=== PATIENT | male | born 1955 | race Caucasian/White ===

== ENCOUNTER 2017-01-10 18:47 | Emergency (ER) | payer OTHER ==
[2017-01-10 19:32] LABS: BASOPHILS 0.5 % (0-2); EOSINOPHILS 4.4 % (0-7); HEMATOCRIT 47.2 % (42.0-54.0); HEMOGLOBIN 15.6 g/dL (13.5-17.5); IMMATURE GRANULOCYTES 0.2 % (0-5); LYMPHOCYTES 30.2 % (15-50); MCH 29.8 pg (26.0-34.0); MCHC 33.1 g/dL (31.0-37.0); MCV 90.2 fL (80.0-100.0); MEAN PLATELET VOLUME 10.3 fL (7.4-10.4); MONOCYTES 8.6 % (2-11); NEUTROPHILS 56.1 % (40-80); PLATELET COUNT 136 10x3/uL (130-400); RBC 5.23 10x6/uL (4.20-6.10); RDW 14.7 % (11.5-14.5); WBC 9.2 10x3/uL (4.8-10.8)
[2017-01-10 19:58] LABS: ALBUMIN 3.4 g/dL (3.4-5.0); ALKALINE PHOSPHATASE 80 U/L (46-116); ALT (SGPT) 41 U/L (10-68); BILIRUBIN - TOTAL 0.26 mg/dL (0.2-1.3); CALC OSMOLALITY 282 mosm/kg (275-300); CARBON DIOXIDE 28.6 mmol/L (21.0-32.0); CHLORIDE - SERUM 103 mmol/L (98-107); CREATININE - SERUM 1.4 mg/dL (0.6-1.3); SODIUM 139 mmol/L (136-145); UREA NITROGEN 18 mg/dL (7-18); eGFR NON AFRICAN AMERICAN 54 mL/min (90-120)
[2017-01-10 20:00] LABS: GLUCOSE 144 mg/dL (74-106)
[2017-01-10 20:07] LABS: AMYLASE - SERUM 72 U/L (25-115); LIPASE 265 U/L (73-393); PRO BNP 538 pg/mL (0-125)
[2017-01-10 20:17] LABS: TROPONIN-I < 0.017 ng/mL (0.000-0.060)
== END 2017-01-10 20:58 | disposition home or self-care (01) ==
LOC: D.ER 18:47
PROVIDERS: Emergency Medicine
DX: I10 Essential (primary) hypertension (principal); R42 Dizziness and giddiness; R51 Headache; Z86.73 Personal history of transient ischemic attack (TIA), and cerebral infarction without residual deficits; E11.9 Type 2 diabetes mellitus without complications

== ENCOUNTER 2017-07-08 08:02 | Emergency (ER) | payer OTHER ==
[2017-09-25 13:57] VITALS: BMI 29.6
== END 2017-07-08 10:17 | disposition home or self-care (01) ==
LOC: D.ER 08:02
DX: M54.5 Low back pain (principal)

== ENCOUNTER 2017-07-18 18:15 | Emergency (ER) | payer OTHER ==
[2017-07-18 19:00] LABS: BASOPHILS 0.7 % (0-2); EOSINOPHILS 4.4 % (0-7); HEMATOCRIT 47.1 % (42.0-54.0); HEMOGLOBIN 16.1 g/dL (13.5-17.5); IMMATURE GRANULOCYTES 0.3 % (0-5); LYMPHOCYTES 29.1 % (15-50); MCH 30.6 pg (26.0-34.0); MCHC 34.2 g/dL (31.0-37.0); MCV 89.4 fL (80.0-100.0); MEAN PLATELET VOLUME 10.6 fL (7.4-10.4); MONOCYTES 9.1 % (2-11); NEUTROPHILS 56.4 % (40-80); PLATELET COUNT 132 10x3/uL (130-400); RBC 5.27 10x6/uL (4.20-6.10); WBC 8.7 10x3/uL (4.8-10.8)
[2017-07-18 19:16] LABS: INR 0.97 (0.85-1.17); PROTIME 12.7 SECONDS (11.6-15.0)
[2017-07-18 19:47] LABS: APPEARANCE CLEAR (CLEAR); COLOR DK YELLOW (YELLOW); SPECIFIC GRAVITY 1.015 (1.005-1.020)
[2017-07-18 19:48] LABS: BILIRUBIN NEGATIVE (NEGATIVE); GLUCOSE 500 mg/dL (NEGATIVE); KETONE NEGATIVE (NEGATIVE); NITRITE NEGATIVE (NEGATIVE); PROTEIN NEGATIVE (NEGATIVE); UROBILINOGEN NORMAL (NORMAL)
[2017-07-18 19:53] LABS: UDS - AMPHET NEGATIVE QUAL (NEGATIVE); UDS - BARB NEGATIVE QUAL (NEGATIVE); UDS - BENZO POSITIVE QUAL (NEGATIVE); UDS - COCAINE NEGATIVE QUAL (NEGATIVE); UDS - OPIATE NEGATIVE QUAL (NEGATIVE); UDS - PCP NEGATIVE QUAL (NEGATIVE); UDS - THC NEGATIVE QUAL (NEGATIVE)
[2017-07-18 20:40] LABS: ALBUMIN 3.5 g/dL (3.4-5.0); ALKALINE PHOSPHATASE 69 U/L (46-116); ALT (SGPT) 28 U/L (10-68); BILIRUBIN - TOTAL 0.44 mg/dL (0.2-1.3); CALC OSMOLALITY 284 mosm/kg (275-300); CALCIUM 9.5 mg/dL (8.5-10.1); CARBON DIOXIDE 27.6 mmol/L (21.0-32.0); CHLORIDE - SERUM 100 mmol/L (98-107); CREATININE - SERUM 1.7 mg/dL (0.6-1.3); POTASSIUM - SERUM 4.4 mmol/L (3.5-5.1); PROTEIN - SERUM 8.3 g/dL (6.4-8.2); SODIUM 138 mmol/L (136-145); UREA NITROGEN 20 mg/dL (7-18); eGFR NON AFRICAN AMERICAN 43 mL/min (90-120)
[2017-07-18 20:43] LABS: GLUCOSE 204 mg/dL (74-106)
[2017-07-18 20:51] LABS: CHOL - HDL RATIO 11.1 ratio (2.3-4.9); CHOLESTEROL, TOTAL 234 mg/dL (0-200); CKMB 0.2 U/L (0.0-3.6); CREATINE KINASE 82 UL (21-232); HDL CHOLESTEROL 21 mg/dL (32-96); LDL CHOLESTEROL 153 mg/dL (0-100); LDL-HDL RATIO 7.3 ratio (1.5-3.5); TRIGLYCERIDE 301 mg/dL (30-200)
[2017-07-18 20:52] LABS: TROPONIN-I < 0.017 ng/mL (0.000-0.060)
[2017-09-25 13:57] VITALS: BMI 29.6
== END 2017-07-18 21:05 | disposition home or self-care (01) ==
LOC: D.ER 18:15
PROVIDERS: Emergency Medicine; Nurse Practitioner Family
DX: R07.9 Chest pain, unspecified (principal); F41.9 Anxiety disorder, unspecified; I10 Essential (primary) hypertension

== ENCOUNTER 2017-07-29 18:45 | Emergency (ER) | payer OTHER ==
[2017-07-29 19:33] LABS: BASOPHILS 0.6 % (0-2); EOSINOPHILS 2.9 % (0-7); HEMATOCRIT 46.7 % (42.0-54.0); HEMOGLOBIN 16.2 g/dL (13.5-17.5); IMMATURE GRANULOCYTES 0.1 % (0-5); LYMPHOCYTES 26.7 % (15-50); MCH 30.6 pg (26.0-34.0); MCHC 34.7 g/dL (31.0-37.0); MCV 88.3 fL (80.0-100.0); MEAN PLATELET VOLUME 10.4 fL (7.4-10.4); MONOCYTES 8.5 % (2-11); NEUTROPHILS 61.2 % (40-80); RBC 5.29 10x6/uL (4.20-6.10); RDW 13.8 % (11.5-14.5); WBC 8.8 10x3/uL (4.8-10.8)
[2017-07-29 19:42] LABS: PLATELET COUNT 160 10x3/uL (130-400)
[2017-07-29 19:50] LABS: ALBUMIN 3.6 g/dL (3.4-5.0); ALKALINE PHOSPHATASE 95 U/L (46-116); ALT (SGPT) 38 U/L (10-68); BILIRUBIN - TOTAL 0.32 mg/dL (0.2-1.3); CALC OSMOLALITY 279 mosm/kg (275-300); CALCIUM 9.1 mg/dL (8.5-10.1); CARBON DIOXIDE 24.8 mmol/L (21.0-32.0); CHLORIDE - SERUM 100 mmol/L (98-107); CREATININE - SERUM 1.7 mg/dL (0.6-1.3); GLUCOSE 194 mg/dL (74-106); POTASSIUM - SERUM 3.7 mmol/L (3.5-5.1); PROTEIN - SERUM 8.5 g/dL (6.4-8.2); SODIUM 137 mmol/L (136-145); UREA NITROGEN 16 mg/dL (7-18); eGFR NON AFRICAN AMERICAN 43 mL/min (90-120)
[2017-07-29 20:00] LABS: CHOL - HDL RATIO 9.6 ratio (2.3-4.9); CHOLESTEROL, TOTAL 202 mg/dL (0-200); CKMB 0.5 U/L (0.0-3.6); CREATINE KINASE 115 UL (21-232); HDL CHOLESTEROL 21 mg/dL (32-96); LDL CHOLESTEROL 113 mg/dL (0-100); LDL-HDL RATIO 5.4 ratio (1.5-3.5); TRIGLYCERIDE 344 mg/dL (30-200)
[2017-07-29 20:01] LABS: TROPONIN-I < 0.017 ng/mL (0.000-0.060)
[2017-09-25 13:57] VITALS: BMI 29.6
== END 2017-07-29 20:45 | disposition home or self-care (01) ==
LOC: D.ER 18:45
PROVIDERS: Family Medicine
DX: R07.89 Other chest pain (principal); Z86.73 Personal history of transient ischemic attack (TIA), and cerebral infarction without residual deficits; E11.9 Type 2 diabetes mellitus without complications

== ENCOUNTER 2017-09-24 15:03 | Observation (INO) | payer OTHER ==
[~2017-09-24] VITALS: Ht 172.7 cm; Wt 81.1 kg
[2017-09-24 16:15] LABS: BASOPHILS 0.6 % (0-2); EOSINOPHILS 0.6 % (0-7); HEMATOCRIT 48.7 % (42.0-54.0); HEMOGLOBIN 16.2 g/dL (13.5-17.5); IMMATURE GRANULOCYTES 0.4 % (0-5); LYMPHOCYTES 14.1 % (15-50); MCH 29.6 pg (26.0-34.0); MCHC 33.3 g/dL (31.0-37.0); MEAN PLATELET VOLUME 12.2 fL (7.4-10.4); MONOCYTES 6.7 % (2-11); NEUTROPHILS 77.6 % (40-80); PLATELET COUNT 114 10x3/uL (130-400); RBC 5.47 10x6/uL (4.20-6.10); RDW 14.1 % (11.5-14.5)
[2017-09-24 16:27] LABS: INR 1.01 (0.85-1.17); PROTIME 12.9 SECONDS (11.6-15.0)
[2017-09-24 16:41] LABS: ALKALINE PHOSPHATASE 122 U/L (46-116); ALT (SGPT) 48 U/L (10-68); BILIRUBIN - TOTAL 0.83 mg/dL (0.2-1.3); CALCIUM 9.7 mg/dL (8.5-10.1); CARBON DIOXIDE 24.3 mmol/L (21.0-32.0); CREATINE KINASE 135 UL (21-232); CREATININE - SERUM 2.4 mg/dL (0.6-1.3); POTASSIUM - SERUM 5.8 mmol/L (3.5-5.1); PRO BNP 208 pg/mL (0-125); PROTEIN - SERUM 7.9 g/dL (6.4-8.2); UREA NITROGEN 26 mg/dL (7-18); eGFR NON AFRICAN AMERICAN 29 mL/min (90-120)
[2017-09-24 16:56] LABS: CALC OSMOLALITY 293 mosm/kg (275-300); SODIUM 120 mmol/L (136-145)
[2017-09-24 16:58] LABS: CHLORIDE - SERUM 83 mmol/L (98-107); TROPONIN-I < 0.017 ng/mL (0.000-0.060)
[2017-09-24 17:19] LABS: KETONE - SERUM SMALL mg/dL (NEGATIVE)
[2017-09-24 17:20] LABS: APPEARANCE CLEAR (CLEAR); COLOR STRAW (YELLOW); GLUCOSE 1000 mg/dL (NEGATIVE); KETONE SMALL mg/dL (NEGATIVE); NITRITE NEGATIVE (NEGATIVE); PROTEIN NEGATIVE (NEGATIVE)
[2017-09-24 17:21] LABS: BILIRUBIN NEGATIVE (NEGATIVE); UROBILINOGEN NORMAL (NORMAL)
[2017-09-24 17:22] LABS: RED CELLS - URINE 0-5 /hpf (0-5)
[2017-09-24 17:23] LABS: WHITE CELLS - URINE 0-5 /hpf (0-5)
[2017-09-24 17:25] LABS: AMYLASE - SERUM 42 U/L (25-115); LIPASE 271 U/L (73-393); MAGNESIUM - SERUM 2.4 mg/dL (1.8-2.4)
[2017-09-24 20:03] LABS: ALBUMIN 3.8 g/dL (3.4-5.0); ANION GAP 18.9 mmol/L (8-16); CALCIUM 9.1 mg/dL (8.5-10.1); CARBON DIOXIDE 24.2 mmol/L (21.0-32.0); POTASSIUM - SERUM 5.1 mmol/L (3.5-5.1)
[2017-09-24 20:21] LABS: GLUCOSE 939 mg/dL (74-106)
[2017-09-24 20:24] LABS: PROTEIN - SERUM 7.5 g/dL (6.4-8.2)
[2017-09-24 20:37] LABS: BILIRUBIN - TOTAL 0.66 mg/dL (0.2-1.3)
[2017-09-25] MEDS ORDERED: CYCLOBENZAPRINE10 MG PO (04:07)
[2017-09-25] MEDS ORDERED: ULTRAM50 MG PO (04:07)
[2017-09-25] MEDS ORDERED: PLAVIX75 MG PO (04:13)
[2017-09-25] MEDS ORDERED: BAYER CHEWABLE81 MG PO (04:13)
[2017-09-25] MEDS ORDERED: METOPROLOL TAR100 M1 PO (04:13)
[2017-09-25] MEDS ORDERED: NORVASC5 MG PO (04:13)
[2017-09-25 04:26] VITALS: BP 173/89; BMI 29.7
[2017-09-25 07:20] LABS: BASOPHILS 0.5 % (0-2); EOSINOPHILS 3.5 % (0-7); HEMATOCRIT 42.9 % (42.0-54.0); HEMOGLOBIN 14.4 g/dL (13.5-17.5); IMMATURE GRANULOCYTES 0.2 % (0-5); LYMPHOCYTES 31.7 % (15-50); MCH 28.9 pg (26.0-34.0); MCHC 33.6 g/dL (31.0-37.0); MEAN PLATELET VOLUME 11.5 fL (7.4-10.4); NEUTROPHILS 56.1 % (40-80); PLATELET COUNT 102 10x3/uL (130-400); RBC 4.98 10x6/uL (4.20-6.10); RDW 13.7 % (11.5-14.5); WBC 6.5 10x3/uL (4.8-10.8)
[2017-09-25 07:31] LABS: MCV 86.1 fL (80.0-100.0)
[2017-09-25 07:43] LABS: ALBUMIN 3.1 g/dL (3.4-5.0); BILIRUBIN - TOTAL 0.49 mg/dL (0.2-1.3); CALCIUM 8.5 mg/dL (8.5-10.1); CARBON DIOXIDE 27.7 mmol/L (21.0-32.0); CREATININE - SERUM 1.5 mg/dL (0.6-1.3); PROTEIN - SERUM 6.3 g/dL (6.4-8.2)
[2017-09-25 07:44] LABS: POTASSIUM - SERUM 3.7 mmol/L (3.5-5.1)
[2017-09-25 08:06] VITALS: BP 167/74
[2017-09-25 12:24] VITALS: BP 170/86
[2017-09-25 13:57] VITALS: Ht 172.7 cm; Wt 81.1 kg
[2017-09-25 14:01] LABS: HEMOGLOBIN A1C 11.6 % (4.8-6.0)
[2017-09-25 17:28] VITALS: BP 159/81
[2017-09-25 21:16] VITALS: BP 142/77
[2017-09-26 01:23] VITALS: BP 132/61
[2017-09-26 05:24] LABS: BASOPHILS 0.5 % (0-2); EOSINOPHILS 2.8 % (0-7); HEMATOCRIT 39.3 % (42.0-54.0); HEMOGLOBIN 13.8 g/dL (13.5-17.5); LYMPHOCYTES 30.6 % (15-50); MCH 30.5 pg (26.0-34.0); MCHC 35.1 g/dL (31.0-37.0); MCV 86.8 fL (80.0-100.0); MEAN PLATELET VOLUME 11.7 fL (7.4-10.4); MONOCYTES 9.4 % (2-11); NEUTROPHILS 56.7 % (40-80); PLATELET COUNT 102 10x3/uL (130-400); RBC 4.53 10x6/uL (4.20-6.10); RDW 13.8 % (11.5-14.5); WBC 6.4 10x3/uL (4.8-10.8)
[2017-09-26 05:53] LABS: ALBUMIN 2.8 g/dL (3.4-5.0); ANION GAP 11.2 mmol/L (8-16); BILIRUBIN - TOTAL 0.4 mg/dL (0.2-1.3); CALCIUM 8.2 mg/dL (8.5-10.1); CARBON DIOXIDE 27.2 mmol/L (21.0-32.0); CREATININE - SERUM 1.2 mg/dL (0.6-1.3); POTASSIUM - SERUM 3.4 mmol/L (3.5-5.1); PROTEIN - SERUM 6.1 g/dL (6.4-8.2)
[2017-09-26 05:58] VITALS: BP 147/65
[2017-09-26 08:10] VITALS: BP 159/83
[2017-09-26 11:45] VITALS: BP 131/61
== END 2017-09-26 15:58 | disposition home or self-care (01) ==
LOC: D.ER 15:03 → D.M2 09-25 03:02 → OBSVTIME 09-25 03:02 → D.M2 09-26 15:58
PROVIDERS: Emergency Medicine; Family Medicine; Nurse Practitioner Family
DX: E11.65 Type 2 diabetes mellitus with hyperglycemia (principal); I10 Essential (primary) hypertension; I25.10 Atherosclerotic heart disease of native coronary artery without angina pectoris; Z95.5 Presence of coronary angioplasty implant and graft; Z95.1 Presence of aortocoronary bypass graft; Z87.891 Personal history of nicotine dependence; K21.9 Gastro-esophageal reflux disease without esophagitis; Z85.46 Personal history of malignant neoplasm of prostate; E87.1 Hypo-osmolality and hyponatremia; N17.9 Acute kidney failure, unspecified

== ENCOUNTER 2017-12-02 18:56 | Emergency (ER) | payer OTHER ==
[2017-09-25 13:57] VITALS: BMI 29.6
[~2017-12-02 18:56] MED LIST: BAYER CHEWABLE81 MG PO; CYCLOBENZAPRINE10 MG PO; METOPROLOL TAR100 M1 PO; NORVASC5 MG PO; PLAVIX75 MG PO; ULTRAM50 MG PO
[2017-12-02 19:37] LABS: BASOPHILS 0.4 % (0-2); EOSINOPHILS 3.9 % (0-7); HEMATOCRIT 46.1 % (42.0-54.0); HEMOGLOBIN 15.3 g/dL (13.5-17.5); IMMATURE GRANULOCYTES 0.1 % (0-5); LYMPHOCYTES 29.2 % (15-50); MCH 29.5 pg (26.0-34.0); MCHC 33.2 g/dL (31.0-37.0); MEAN PLATELET VOLUME 10.2 fL (7.4-10.4); MONOCYTES 6.7 % (2-11); NEUTROPHILS 59.7 % (40-80); PLATELET COUNT 166 10x3/uL (130-400); RBC 5.18 10x6/uL (4.20-6.10); RDW 14.5 % (11.5-14.5); WBC 7.1 10x3/uL (4.8-10.8)
[2017-12-02 19:48] LABS: APTT 26.5 SECONDS (22.8-39.4); INR 0.99 (0.85-1.17); PROTIME 12.7 SECONDS (11.6-15.0)
[2017-12-02 19:56] LABS: ALBUMIN 3.6 g/dL (3.4-5.0); ALKALINE PHOSPHATASE 82 U/L (46-116); ALT (SGPT) 28 U/L (10-68); CALC OSMOLALITY 283 mosm/kg (275-300); CALCIUM 9.4 mg/dL (8.5-10.1); CHLORIDE - SERUM 102 mmol/L (98-107); CREATININE - SERUM 1.7 mg/dL (0.6-1.3); POTASSIUM - SERUM 4.2 mmol/L (3.5-5.1); PROTEIN - SERUM 8.5 g/dL (6.4-8.2); SODIUM 137 mmol/L (136-145); UREA NITROGEN 18 mg/dL (7-18); eGFR NON AFRICAN AMERICAN 43 mL/min (90-120)
[2017-12-02 19:59] LABS: GLUCOSE 251 mg/dL (74-106)
[2017-12-02 20:05] LABS: CREATINE KINASE 199 UL (21-232); PRO BNP 261 pg/mL (0-125); TROPONIN-I < 0.017 ng/mL (0.000-0.060)
== END 2017-12-02 22:30 | disposition left against medical advice (07) ==
LOC: D.ER 18:56
PROVIDERS: Family Medicine
DX: R07.9 Chest pain, unspecified (principal); E11.9 Type 2 diabetes mellitus without complications; Z79.4 Long term (current) use of insulin; R53.1 Weakness; I12.9 Hypertensive chronic kidney disease with stage 1 through stage 4 chronic kidney disease, or unspecified chronic kidney disease; N18.9 Chronic kidney disease, unspecified; F17.200 Nicotine dependence, unspecified, uncomplicated

== ENCOUNTER 2017-12-26 19:24 | Emergency (ER) | payer MEDICARE, OTHER ==
[2017-09-25 13:57] VITALS: BMI 29.6
[2017-12-26 19:59] LABS: BASOPHILS 0.7 % (0-2); EOSINOPHILS 3.1 % (0-7); HEMATOCRIT 46.3 % (42.0-54.0); HEMOGLOBIN 15.7 g/dL (13.5-17.5); IMMATURE GRANULOCYTES 0.1 % (0-5); LYMPHOCYTES 27.5 % (15-50); MCH 29.6 pg (26.0-34.0); MCHC 33.9 g/dL (31.0-37.0); MCV 87.4 fL (80.0-100.0); MEAN PLATELET VOLUME 10.6 fL (7.4-10.4); MONOCYTES 7.7 % (2-11); NEUTROPHILS 60.9 % (40-80); PLATELET COUNT 151 10x3/uL (130-400); RDW 14.1 % (11.5-14.5); WBC 8.7 10x3/uL (4.8-10.8)
[2017-12-26 20:30] LABS: ALBUMIN 3.5 g/dL (3.4-5.0); ALKALINE PHOSPHATASE 82 U/L (46-116); ALT (SGPT) 26 U/L (10-68); BILIRUBIN - TOTAL 0.29 mg/dL (0.2-1.3); CALC OSMOLALITY 287 mosm/kg (275-300); CALCIUM 9.5 mg/dL (8.5-10.1); CHLORIDE - SERUM 102 mmol/L (98-107); CREATINE KINASE 93 UL (21-232); CREATININE - SERUM 1.5 mg/dL (0.6-1.3); GLUCOSE 238 mg/dL (74-106); HDL CHOLESTEROL 23 mg/dL (32-96); POTASSIUM - SERUM 3.8 mmol/L (3.5-5.1); PROTEIN - SERUM 8.7 g/dL (6.4-8.2); SODIUM 140 mmol/L (136-145); TRIGLYCERIDE 192 mg/dL (30-200); UREA NITROGEN 15 mg/dL (7-18); eGFR NON AFRICAN AMERICAN 50 mL/min (90-120)
[2017-12-26 20:53] LABS: CHOL - HDL RATIO 8.4 ratio (2.3-4.9); CHOLESTEROL, TOTAL 192 mg/dL (0-200); CKMB 0.3 U/L (0.0-3.6); LDL CHOLESTEROL 131 mg/dL (0-100); LDL-HDL RATIO 5.7 ratio (1.5-3.5); TROPONIN-I 0.026 ng/mL (0.000-0.060)
[2017-12-26 23:32] LABS: CKMB 0.3 U/L (0.0-3.6); CREATINE KINASE 82 UL (21-232); TROPONIN-I 0.031 ng/mL (0.000-0.060)
== END 2017-12-27 00:18 | disposition left against medical advice (07) ==
LOC: OBSVTIME → D.ER 19:24 → D.EDHOLD 21:50 → D.ER 21:50 → OBSVTIME 21:50 → D.ER 12-27 00:18
PROVIDERS: Family Medicine
DX: R07.9 Chest pain, unspecified (principal); I10 Essential (primary) hypertension; I12.9 Hypertensive chronic kidney disease with stage 1 through stage 4 chronic kidney disease, or unspecified chronic kidney disease; N18.9 Chronic kidney disease, unspecified; E11.9 Type 2 diabetes mellitus without complications; Z79.4 Long term (current) use of insulin

== ENCOUNTER 2018-01-12 16:34 | Observation (INO) | payer OTHER ==
[~2018-01-12] VITALS: Ht 172.7 cm; Wt 75.1 kg
--- NOTE | ~2018-01-12 | CN ---
PATIENT NAME:CAROLINA MILLS MEDICAL RECORD: [id number] : 51 LOCATION:D. D.2117 ADMIT DATE: 01/12/18 ACCOUNT: [id number] CONSULTING PHYSICIAN: BRUCE MILLS MD REFERRING PHYSICIAN: JORDAN HURLEY MD DATE OF CONSULTATION: 01/13/2018 HISTORY OF PRESENT ILLNESS: A 62-year-old gentleman with history of coronary artery disease, status post CABG, status post intervention last , just balloon. Has a history of hypertension and diabetes. Admitted with chest pain. Acute renal injury probably secondary to dehydration. Enzymes are negative at this point. Creatinine is improving. Pain free. We are asked to see him concerning his cardiovascular status. PAST MEDICAL HISTORY: 1. History of hypertension. 2. Hyperlipidemia. 3. Diabetes mellitus. 4. Ongoing tobacco use. 5. Mild chronic renal insufficiency. MEDICATIONS: Include Glucophage 500 b.i.d., insulin per scale, aspirin 81 every day, amlodipine 5 every day, metoprolol 100 b.i.d., Plavix 75 every day, Flexeril 10 t.i.d. p.r.n. ALLERGIES: MORPHINE AND CODEINE. SOCIAL HISTORY: . Does smoke. Stays quite active. Easily takes care of all of his ADLs. REVIEW OF SYSTEMS: The patient reports easy bruising but reports no swollen glands. The patient reports no fever, no night sweats, no significant weight gain, no significant weight loss. No significant exercise tolerance. The patient reports no dry eyes, no irritation, no vision change. Patient reports no difficulty hearing and no ear pain. Patient reports no frequent nose bleeds or nose and sinus problems. Patient reports on arm pain on exertion. No shortness of breath while lying down. No history of heart murmur. Patient reports no cough, no wheezing or coughing up blood. Patient reports no abdominal pain, no vomiting. Normal appetite. No diarrhea and not vomiting blood. No nausea and no constipation. Patient reports no incontinence. No difficulty urinating. No hematuria. No increased frequency. Patient reports no muscle aches. No weakness, no arthralgias, no back pain. No swelling of the extremities. Patient reports no abnormal mole, no jaundice, no rashes. Reports no loss of consciousness. No weakness and no numbness. No seizures, dizziness, or headaches. The patient reports no depression, no sleep disturbance, feeling safe in a relationship and no alcohol abuse. Patient reports on fatigue. Reports no runny nose or sinus pressure. No itching, no hives, and no frequent sneezing. PHYSICAL EXAMINATION: GENERAL: Pleasant gentleman, in no acute distress. VITAL SIGNS: Blood pressure 148/70, pulse 93 and regular. HEENT: Normocephalic, atraumatic. NECK: No JVD or bruit. HEART: Regular. A II/ systolic ejection murmur, occasional extrasystole. CONSULT REPORT [id number] LINACAROLINA RAY LUNGS: Good air excursion. ABDOMEN: Soft, nontender. EXTREMITIES: Pulses 2+. No edema. DIAGNOSTIC DATA: ECG without acute change. IMPRESSION: Doubt acute closure given no ST changes and negative enzymes. Maybe still has small vessel disease given underlying diabetic, etc. Continue anti-anginals. No contraindication to discharge from my standpoint. TRANSINT:[id number] Voice Confirmation ID: [id number] DOCUMENT ID: [id number] BRUCE MILLS MD at 0804 CC: [id number] DICTATION DATE: 01/13/18 0850 AUTOMATIC LUMP MAKING MACHINE TENDER: 01/13/18 1058 DIS IN 01/13/18 [id number] [place] [address]
[2018-01-12 17:24] LABS: BASOPHILS 0.8 % (0-2); EOSINOPHILS 6.8 % (0-7); HEMATOCRIT 39.5 % (42.0-54.0); HEMOGLOBIN 13.5 g/dL (13.5-17.5); IMMATURE GRANULOCYTES 0.2 % (0-5); LYMPHOCYTES 19.6 % (15-50); MCH 29.2 pg (26.0-34.0); MCHC 34.2 g/dL (31.0-37.0); MCV 85.3 fL (80.0-100.0); MEAN PLATELET VOLUME 10.2 fL (7.4-10.4); MONOCYTES 6.8 % (2-11); NEUTROPHILS 65.8 % (40-80); RBC 4.63 10x6/uL (4.20-6.10); RDW 14.1 % (11.5-14.5); WBC 9.6 10x3/uL (4.8-10.8)
[2018-01-12 17:45] LABS: PLATELET COUNT 199 10x3/uL (130-400)
[2018-01-12 18:28] LABS: APTT 28.2 SECONDS (22.8-39.4); INR 1.07 (0.85-1.17); PROTIME 13.5 SECONDS (11.6-15.0)
[2018-01-12 18:29] LABS: D-DIMER-QUANTITATIVE 1.68 ug/mLFEU (0.20-0.54)
[2018-01-12 18:33] LABS: ALBUMIN 3.1 g/dL (3.4-5.0); ALKALINE PHOSPHATASE 88 U/L (46-116); ALT (SGPT) 23 U/L (10-68); CALC OSMOLALITY 279 mosm/kg (275-300); CARBON DIOXIDE 29.9 mmol/L (21.0-32.0); CHLORIDE - SERUM 95 mmol/L (98-107); CREATININE - SERUM 2.1 mg/dL (0.6-1.3); POTASSIUM - SERUM 3.8 mmol/L (3.5-5.1); SODIUM 138 mmol/L (136-145); UREA NITROGEN 26 mg/dL (7-18); eGFR NON AFRICAN AMERICAN 34 mL/min (90-120)
[2018-01-12 18:47] LABS: CHOL - HDL RATIO 5.3 ratio (2.3-4.9); CHOLESTEROL, TOTAL 116 mg/dL (0-200); CKMB 0.5 U/L (0.0-3.6); CREATINE KINASE 97 UL (21-232); HDL CHOLESTEROL 22 mg/dL (32-96); LDL CHOLESTEROL 68 mg/dL (0-100); LDL-HDL RATIO 3.1 ratio (1.5-3.5); PRO BNP 749 pg/mL (0-125); TRIGLYCERIDE 130 mg/dL (30-200); TROPONIN-I < 0.017 ng/mL (0.000-0.060)
[2018-01-12 18:48] LABS: GLUCOSE 80 mg/dL (74-106)
[2018-01-12 19:00] VITALS: BP 179/81
[2018-01-12 23:32] VITALS: BP 179/81; Ht 172.7 cm; Wt 75.1 kg
[2018-01-13 04:00] VITALS: BP 148/70
[2018-01-13 06:01] LABS: ANION GAP 14.4 mmol/L (8-16); CARBON DIOXIDE 25.3 mmol/L (21.0-32.0); CREATININE - SERUM 1.8 mg/dL (0.6-1.3); POTASSIUM - SERUM 3.7 mmol/L (3.5-5.1)
[2018-01-13] MEDS ORDERED: GLUCOPHAGE500 MG PO (06:17)
[2018-01-13] MEDS ORDERED: HUMULIN R100 U/ML SC (06:18)
[2018-01-13] MEDS ORDERED: LEVEMIR100 U/M1 SC (06:19)
[2018-01-13 08:44] VITALS: BP 175/92
== END 2018-01-13 09:15 | disposition left against medical advice (07) ==
LOC: D.ER 16:34 → D.M2 20:22 → D.EDHOLD 20:22 → OBSVTIME 20:22 → D.M2 21:15
PROVIDERS: Emergency Medicine; Family Medicine
DX: I25.10 Atherosclerotic heart disease of native coronary artery without angina pectoris (principal); Z95.1 Presence of aortocoronary bypass graft; Z72.0 Tobacco use; N17.9 Acute kidney failure, unspecified; E86.0 Dehydration; E78.5 Hyperlipidemia, unspecified; E11.9 Type 2 diabetes mellitus without complications

== ENCOUNTER 2018-05-30 18:48 | Emergency (ER) | payer OTHER ==
[~2018-05-30] VITALS: Ht 172.7 cm; Wt 82.3 kg
[~2018-05-30 18:48] MED LIST changes: +GLUCOPHAGE500 MG PO; +HUMULIN R100 U/ML SC; +LEVEMIR100 U/M1 SC
[2018-05-30 18:54] VITALS: Ht 172.7 cm; Wt 82.3 kg
[2018-05-30] MEDS ORDERED: ZYBAN150 MG PO (18:59)
[2018-05-30] MEDS ORDERED: LIPITOR80 MG PO (18:59)
[2018-05-30] MEDS ORDERED: COREG25 MG PO (19:00)
[2018-05-30] MEDS ORDERED: LANTUS INSULIN SC (19:02)
[2018-05-30] MEDS ORDERED: ISOSORBIDE MONO30 M1 PO (19:03)
[2018-05-30] MEDS ORDERED: PROTONIX40 MG PO (19:04)
[2018-05-30] MEDS ORDERED: COMMIT4 MG PO (19:06)
[2018-05-30 19:58] LABS: BASOPHILS 0.7 % (0-2); EOSINOPHILS 3.7 % (0-7); HEMATOCRIT 45.8 % (42.0-54.0); HEMOGLOBIN 15.4 g/dL (13.5-17.5); IMMATURE GRANULOCYTES 0.2 % (0-5); MCH 28.9 pg (26.0-34.0); MCHC 33.6 g/dL (31.0-37.0); MCV 86.1 fL (80.0-100.0); MEAN PLATELET VOLUME 10.4 fL (7.4-10.4); MONOCYTES 7.5 % (2-11); NEUTROPHILS 70.9 % (40-80); RBC 5.32 10x6/uL (4.20-6.10); RDW 14.6 % (11.5-14.5); WBC 9.4 10x3/uL (4.8-10.8)
[2018-05-30 20:05] LABS: PLATELET COUNT 120 10x3/uL (130-400)
[2018-05-30 20:09] LABS: ALBUMIN 3.4 g/dL (3.4-5.0); ALKALINE PHOSPHATASE 70 U/L (46-116); ALT (SGPT) 27 U/L (10-68); BILIRUBIN - TOTAL 0.39 mg/dL (0.2-1.3); CALC OSMOLALITY 281 mosm/kg (275-300); CALCIUM 8.7 mg/dL (8.5-10.1); CARBON DIOXIDE 26.1 mmol/L (21.0-32.0); CHLORIDE - SERUM 104 mmol/L (98-107); GLUCOSE 98 mg/dL (74-106); POTASSIUM - SERUM 4.4 mmol/L (3.5-5.1); PROTEIN - SERUM 8.2 g/dL (6.4-8.2); SODIUM 140 mmol/L (136-145); UREA NITROGEN 21 mg/dL (7-18); eGFR NON AFRICAN AMERICAN 36 mL/min (90-120)
[2018-05-30 20:21] LABS: AMYLASE - SERUM 73 U/L (25-115); CKMB 0.9 U/L (0.0-3.6); CREATINE KINASE 73 UL (21-232); LIPASE 354 U/L (73-393); PRO BNP 1049 pg/mL (0-125)
[2018-05-30 20:34] LABS: TROPONIN-I < 0.017 ng/mL (0.000-0.060)
[2018-05-30 22:23] LABS: APPEARANCE CLEAR (CLEAR); BILIRUBIN NEGATIVE (NEGATIVE); COLOR YELLOW (YELLOW); GLUCOSE NEGATIVE (NEGATIVE); KETONE NEGATIVE (NEGATIVE); NITRITE NEGATIVE (NEGATIVE); PROTEIN 1+ mg/dL (NEGATIVE); SPECIFIC GRAVITY 1.015 (1.005-1.020); UROBILINOGEN NORMAL (NORMAL)
[2018-05-31 00:32] VITALS: BP 166/105
== END 2018-05-31 00:34 | disposition other institution (70) ==
LOC: D.ER 18:48
PROVIDERS: Family Medicine
DX: R07.9 Chest pain, unspecified (principal); I10 Essential (primary) hypertension; R55 Syncope and collapse; R10.9 Unspecified abdominal pain; E11.9 Type 2 diabetes mellitus without complications; K21.9 Gastro-esophageal reflux disease without esophagitis; N42.9 Disorder of prostate, unspecified; F17.200 Nicotine dependence, unspecified, uncomplicated

== ENCOUNTER 2018-07-25 15:44 | Emergency (ER) | payer OTHER, MEDICARE ==
[2018-05-30 18:54] VITALS: BMI 27.5
[~2018-07-25 15:44] MED LIST changes: +COMMIT4 MG PO; +COREG25 MG PO; +ISOSORBIDE MONO30 M1 PO; +LANTUS INSULIN SC; +LIPITOR80 MG PO; +PROTONIX40 MG PO; +ZYBAN150 MG PO
[2018-08-17] MEDS ORDERED: ULTRAM50 MG PO (14:57)
[2018-08-17] MEDS ORDERED: NEURONTIN 300300 MG PO (14:57)
== END 2018-07-25 16:01 | disposition home or self-care (01) ==
LOC: D.ER 15:44
DX: R68.89 Other general symptoms and signs (principal)

== ENCOUNTER 2018-08-08 15:11 | Emergency (ER) | payer OTHER, MEDICARE ==
[~2018-08-08] VITALS: Ht 172.7 cm; Wt 84.5 kg
[2018-08-08 15:15] VITALS: Ht 172.7 cm; Wt 84.5 kg
[2018-08-08] MEDS ORDERED: PROCARDIA10 MG PO (15:17)
[2018-08-08] MEDS ORDERED: CLARITIN 10 MG10 MG PO (15:17)
[2018-08-08 16:51] LABS: BASOPHILS 0.5 % (0-2); EOSINOPHILS 2.4 % (0-7); HEMATOCRIT 44.3 % (42.0-54.0); HEMOGLOBIN 14.8 g/dL (13.5-17.5); IMMATURE GRANULOCYTES 0.2 % (0-5); LYMPHOCYTES 14.4 % (15-50); MCH 28.4 pg (26.0-34.0); MCHC 33.4 g/dL (31.0-37.0); MCV 84.9 fL (80.0-100.0); MEAN PLATELET VOLUME 10.6 fL (7.4-10.4); MONOCYTES 6.9 % (2-11); NEUTROPHILS 75.6 % (40-80); PLATELET COUNT 136 10x3/uL (130-400); RBC 5.22 10x6/uL (4.20-6.10); RDW 15.2 % (11.5-14.5); WBC 9.2 10x3/uL (4.8-10.8)
[2018-08-08 17:07] LABS: ALBUMIN 3.1 g/dL (3.4-5.0); ALKALINE PHOSPHATASE 77 U/L (46-116); ALT (SGPT) 22 U/L (10-68); BILIRUBIN - TOTAL 0.31 mg/dL (0.2-1.3); CALC OSMOLALITY 275 mosm/kg (275-300); CALCIUM 8.4 mg/dL (8.5-10.1); CARBON DIOXIDE 26.1 mmol/L (21.0-32.0); CHLORIDE - SERUM 102 mmol/L (98-107); CREATININE - SERUM 1.6 mg/dL (0.6-1.3); POTASSIUM - SERUM 3.7 mmol/L (3.5-5.1); PROTEIN - SERUM 7.8 g/dL (6.4-8.2); SODIUM 136 mmol/L (136-145); UREA NITROGEN 16 mg/dL (7-18); eGFR NON AFRICAN AMERICAN 46 mL/min (90-120)
[2018-08-08 17:11] LABS: GLUCOSE 156 mg/dL (74-106)
[2018-08-08 17:21] LABS: AMYLASE - SERUM 63 U/L (25-115); CKMB 0.9 U/L (0.0-3.6); CREATINE KINASE 69 UL (21-232); LIPASE 231 U/L (73-393); MAGNESIUM - SERUM 1.7 mg/dL (1.8-2.4); TROPONIN-I 0.043 ng/mL (0.000-0.060)
[2018-08-08 18:20] VITALS: BP 166/89
== END 2018-08-08 18:20 | disposition left against medical advice (07) ==
LOC: D.ER 15:11
PROVIDERS: Family Medicine
DX: R07.9 Chest pain, unspecified (principal); I10 Essential (primary) hypertension; N28.9 Disorder of kidney and ureter, unspecified; Z86.73 Personal history of transient ischemic attack (TIA), and cerebral infarction without residual deficits; E11.9 Type 2 diabetes mellitus without complications; F17.200 Nicotine dependence, unspecified, uncomplicated

== ENCOUNTER 2018-08-15 03:21 | Emergency (ER) | payer OTHER ==
[~2018-08-15] VITALS: Ht 172.7 cm; Wt 88.6 kg
[~2018-08-15 03:21] MED LIST changes: +CLARITIN 10 MG10 MG PO; +PROCARDIA10 MG PO
[2018-08-15 03:24] VITALS: Ht 172.7 cm; Wt 88.6 kg
[2018-08-15 03:46] LABS: BASOPHILS 0.5 % (0-2); HEMATOCRIT 44.7 % (42.0-54.0); HEMOGLOBIN 15.4 g/dL (13.5-17.5); IMMATURE GRANULOCYTES 0.3 % (0-5); LYMPHOCYTES 16.2 % (15-50); MCH 29.2 pg (26.0-34.0); MCHC 34.5 g/dL (31.0-37.0); MCV 84.7 fL (80.0-100.0); MONOCYTES 6.7 % (2-11); NEUTROPHILS 74.3 % (40-80); PLATELET COUNT 155 10x3/uL (130-400); RBC 5.28 10x6/uL (4.20-6.10); RDW 15.4 % (11.5-14.5); WBC 11.4 10x3/uL (4.8-10.8)
[2018-08-15 04:01] LABS: ALBUMIN 3.5 g/dL (3.4-5.0); ALKALINE PHOSPHATASE 78 U/L (46-116); ALT (SGPT) 28 U/L (10-68); BILIRUBIN - TOTAL 0.47 mg/dL (0.2-1.3); CALC OSMOLALITY 275 mosm/kg (275-300); CALCIUM 9.3 mg/dL (8.5-10.1); CARBON DIOXIDE 27.5 mmol/L (21.0-32.0); CHLORIDE - SERUM 99 mmol/L (98-107); CREATININE - SERUM 1.7 mg/dL (0.6-1.3); GLUCOSE 148 mg/dL (74-106); PROTEIN - SERUM 8.2 g/dL (6.4-8.2); SODIUM 135 mmol/L (136-145); UREA NITROGEN 21 mg/dL (7-18); eGFR NON AFRICAN AMERICAN 43 mL/min (90-120)
[2018-08-15 04:21] LABS: CREATINE KINASE 632 UL (21-232); MAGNESIUM - SERUM 1.8 mg/dL (1.8-2.4); PRO BNP 2283 pg/mL (0-125)
[2018-08-15 04:22] LABS: TROPONIN-I 8.502 ng/mL (0.000-0.060)
[2018-08-15 04:23] LABS: CKMB 49.7 U/L (0.0-3.6)
[2018-08-15 08:05] VITALS: BP 172/100
[2018-08-17] MEDS ORDERED: ULTRAM50 MG PO (14:57)
[2018-08-17] MEDS ORDERED: NEURONTIN 300300 MG PO (14:57)
== END 2018-08-15 08:05 | disposition short-term general hospital (02) ==
LOC: D.ER 03:21
PROVIDERS: Family Medicine
DX: R07.9 Chest pain, unspecified (principal); I25.10 Atherosclerotic heart disease of native coronary artery without angina pectoris; R74.8 Abnormal levels of other serum enzymes; I21.4 Non-ST elevation (NSTEMI) myocardial infarction; E11.9 Type 2 diabetes mellitus without complications; Z85.46 Personal history of malignant neoplasm of prostate; F17.200 Nicotine dependence, unspecified, uncomplicated

== ENCOUNTER → 2018-08-17 | Emergency (ER) | payer OTHER ==
[~2018-08-17] VITALS: Ht 172.7 cm; Wt 84.5 kg
[~2018-08-17] MED LIST changes: +NEURONTIN 300300 MG PO
[2018-08-17 13:46] VITALS: Ht 172.7 cm; Wt 84.5 kg
[2018-08-17 16:05] VITALS: BP 138/73
== END | disposition home or self-care (01) ==
LOC: D.ER 13:15
DX: M54.2 Cervicalgia (principal); E11.9 Type 2 diabetes mellitus without complications; N42.9 Disorder of prostate, unspecified; F17.200 Nicotine dependence, unspecified, uncomplicated

== ENCOUNTER 2018-09-27 23:55 | Observation (INO) | payer MEDICARE ==
[~2018-09-27] VITALS: Ht 172.7 cm; Wt 84.1 kg
[2018-09-28 00:08] VITALS: Ht 172.7 cm; Wt 84.1 kg
--- NOTE | 2018-09-28 00:56 | NUR ---
NOTIFIED JARED THAT PT STATED NITRO DID NOT HELP AND HE DID NOT WANT ANY MORE HE NEEDED DEMEROL.
[2018-09-28 01:02] LABS: BASOPHILS 0.6 % (0-2); EOSINOPHILS 2.5 % (0-7); HEMATOCRIT 42.4 % (42.0-54.0); HEMOGLOBIN 14.2 g/dL (13.5-17.5); IMMATURE GRANULOCYTES 0.3 % (0-5); MCH 28.4 pg (26.0-34.0); MCHC 33.5 g/dL (31.0-37.0); MCV 84.8 fL (80.0-100.0); MEAN PLATELET VOLUME 11.2 fL (7.4-10.4); MONOCYTES 6.8 % (2-11); NEUTROPHILS 74.8 % (40-80); PLATELET COUNT 132 10x3/uL (130-400); RDW 15.4 % (11.5-14.5); WBC 10.6 10x3/uL (4.8-10.8)
[2018-09-28 01:28] LABS: ALBUMIN 3.1 g/dL (3.4-5.0); ALKALINE PHOSPHATASE 68 U/L (46-116); ALT (SGPT) 21 U/L (10-68); BILIRUBIN - TOTAL 0.47 mg/dL (0.2-1.3); CALC OSMOLALITY 281 mosm/kg (275-300); CALCIUM 8.6 mg/dL (8.5-10.1); CARBON DIOXIDE 26.3 mmol/L (21.0-32.0); CHLORIDE - SERUM 104 mmol/L (98-107); CREATININE - SERUM 1.9 mg/dL (0.6-1.3); GLUCOSE 104 mg/dL (74-106); PROTEIN - SERUM 7.6 g/dL (6.4-8.2); SODIUM 140 mmol/L (136-145); UREA NITROGEN 22 mg/dL (7-18); eGFR NON AFRICAN AMERICAN 38 mL/min (90-120)
[2018-09-28 01:48] LABS: CKMB 0.8 U/L (0.0-3.6); CREATINE KINASE 76 UL (21-232)
[2018-09-28 01:49] LABS: TROPONIN-I 0.154 ng/mL (0.000-0.060)
--- NOTE | 2018-09-28 03:29 | NUR ---
PT RETURNED FROM SCAN AT THIS TIME
[2018-09-28 03:43] VITALS: BP 157/80
[2018-09-28 03:58] VITALS: BP 157/85
--- NOTE | 2018-09-28 04:08 | NUR ---
NO CHANGES NOTED. WILL MONITOR
[2018-09-28 04:51] VITALS: BP 150/78
--- NOTE | 2018-09-28 05:02 | NUR ---
PT REQUESTING TO SIGN OUT AMA AT THIS TIME. DR NEWBY ADVISED AND IS AT BEDSIDE AT THIS TIME
--- NOTE | 2018-09-28 05:08 | NUR ---
PT SIGNED AMA AT THIS TIME. IV D/C AT THIS TIME. AREA WNL. SIMPLE DRESSING. ADVISED TO STAY FOR TREATMENT. PT REFUSED. ADVISED ON LAB RESULTS AND MEANING. PT STATES UNDERSTANDS AND IS STILL GOING. PT ADVISED ON MEANING OF AMA. PT VERBALIZED UNDERSTANDING. AMA FORM SIGNED
== END 2018-09-28 05:08 | disposition left against medical advice (07) ==
LOC: D.ER 23:55 → D.EDHOLD 09-28 02:22 → OBSVTIME 09-28 02:22 → D.EDHOLD 09-28 05:08
PROVIDERS: Family Medicine; ADMIT Internal Medicine Nephrology
DX: R07.9 Chest pain, unspecified (principal); I25.10 Atherosclerotic heart disease of native coronary artery without angina pectoris; Z95.1 Presence of aortocoronary bypass graft; E11.9 Type 2 diabetes mellitus without complications; F17.210 Nicotine dependence, cigarettes, uncomplicated

== ENCOUNTER 2018-10-17 17:27 | Inpatient (IN) | payer MEDICARE ==
[~2018-10-17] VITALS: Ht 172.7 cm; Wt 77.3 kg
[2018-10-17 18:54] LABS: BASOPHILS 0.5 % (0-2); EOSINOPHILS 3.2 % (0-7); HEMATOCRIT 43.1 % (42.0-54.0); HEMOGLOBIN 14.4 g/dL (13.5-17.5); IMMATURE GRANULOCYTES 0.1 % (0-5); MCH 28.3 pg (26.0-34.0); MCHC 33.4 g/dL (31.0-37.0); MCV 84.7 fL (80.0-100.0); MEAN PLATELET VOLUME 10.9 fL (7.4-10.4); NEUTROPHILS 68.2 % (40-80); PLATELET COUNT 133 10x3/uL (130-400); RBC 5.09 10x6/uL (4.20-6.10); RDW 15.4 % (11.5-14.5); WBC 9.3 10x3/uL (4.8-10.8)
[2018-10-17 19:05] LABS: APTT 27.7 SECONDS (22.8-39.4); INR 1.14 (0.85-1.17); PROTIME 14.1 SECONDS (11.6-15.0)
[2018-10-17 19:07] LABS: D-DIMER-QUANTITATIVE 1.52 ug/mLFEU (0.20-0.54)
[2018-10-17 19:09] LABS: ALBUMIN 3.2 g/dL (3.4-5.0); ALKALINE PHOSPHATASE 69 U/L (46-116); ALT (SGPT) 13 U/L (10-68); BILIRUBIN - TOTAL 0.45 mg/dL (0.2-1.3); CALC OSMOLALITY 285 mosm/kg (275-300); CALCIUM 8.8 mg/dL (8.5-10.1); CARBON DIOXIDE 25.3 mmol/L (21.0-32.0); CHLORIDE - SERUM 106 mmol/L (98-107); CREATININE - SERUM 1.9 mg/dL (0.6-1.3); GLUCOSE 140 mg/dL (74-106); POTASSIUM - SERUM 3.9 mmol/L (3.5-5.1); PROTEIN - SERUM 7.6 g/dL (6.4-8.2); SODIUM 141 mmol/L (136-145); UREA NITROGEN 21 mg/dL (7-18); eGFR NON AFRICAN AMERICAN 38 mL/min (90-120)
[2018-10-17 19:20] LABS: CKMB 1.2 U/L (0.0-3.6); CREATINE KINASE 74 UL (21-232); MAGNESIUM - SERUM 2.2 mg/dL (1.8-2.4); TROPONIN-I 0.046 ng/mL (0.000-0.060)
[2018-10-17 20:04] VITALS: BP 150/104
[2018-10-17 22:17] VITALS: BP 156/100
[2018-10-18] VITALS: BP 160/101
[2018-10-18 04:13] VITALS: Ht 172.7 cm; Wt 77.3 kg
[2018-10-18 08:52] VITALS: BP 147/96
--- NOTE | 2018-10-18 11:25 | MORECARE ---
CASE MANAGEMENT DISCHARGE SUMMARY PATIENT: CAROLINA MILLS RAY UNIT: [id number] ADM DATE: 10/17/18 AGE: 63 : 53 SEX: M ROOM/BED: D.2115 AUTHOR: HUONG GARCIA PHYSICIAN: REFERRING PHYSICIAN: LISBET WILEY MD DATE OF SERVICE: 10/18/18 Discharge Plan Patient Name: CAROLINA MILLS [facility] [facility] 1955 Planned Disposition: Home Anticipated Discharge Date: 10/18/18 Discharge Date: Expected LOS: 1 Initial Reviewer: [email or web address] Initial Review Date: 10/18/2018 Generated: 10/18/18 12:25 pm Comments DCP- Discharge Planning Updated by [email or web address]: Brendon Hahn on 10/18/18 10:[address] Patient Name: CAROLINA MILLS Admission Status: ER Accout number: [id number] Admission Date: 10-17-2018 : 1955 Admission Diagnosis: Attending: LISBET WILEY Current LOS: 1 Anticipated DC Date: 10-18-2018 Planned Disposition: Home Primary Insurance: MEDICARE A & B Discharge Planning Comments: CM RECEIVED DISCHARGE ORDER, ATTEMPTED TO MEET WITH PT FOR INITIAL ASSESSMENT OF DISCHARGE NEEDS. PT WAS NOT IN ROOM AT APPROXIMATELY 1115 HOURS. CM SPOKE TO FLOW COORDINANATOR NURSE WHO ADVISED THAT PT LEFT WITHOUT WAITING FOR DISCHARGE PAPERS. Craps Dealer: Brendon Hahn Patient Name: CAROLINA MILLS Page 81098 at 1125 All edits/amendments must be made on the electronic document DICTATION DATE: 10/18/18 1124 PLASTER MECHANIC: FRANCES 10/18/18 1124 RPT#: [id number] DC DATE: STATUS: ADM IN [facility] [address] [place] [address] END OF REPORT
== END 2018-10-18 11:36 | disposition home or self-care (01) | DRG 204 ==
LOC: D.ER 17:27 → D.EDHOLD 23:23 → D.M2 23:23
PROVIDERS: Family Medicine; ADMIT Family Medicine
DX: R06.02 Shortness of breath (principal); R07.9 Chest pain, unspecified; E11.9 Type 2 diabetes mellitus without complications; I10 Essential (primary) hypertension; Z91.19 Patient's noncompliance with other medical treatment and regimen; Z86.73 Personal history of transient ischemic attack (TIA), and cerebral infarction without residual deficits

== ENCOUNTER 2018-10-29 00:25 | Inpatient (IN) | payer MEDICARE ==
[~2018-10-29] VITALS: Ht 172.7 cm; Wt 78.6 kg
[2018-10-29 01:01] LABS: APTT 24.2 SECONDS (22.8-39.4); INR 1.11 (0.85-1.17); PROTIME 13.8 SECONDS (11.6-15.0)
[2018-10-29 01:04] LABS: BASOPHILS 0.9 % (0-2); EOSINOPHILS 4.5 % (0-7); IMMATURE GRANULOCYTES 0.3 % (0-5); LYMPHOCYTES 27.1 % (15-50); MCH 28.4 pg (26.0-34.0); MCHC 33.3 g/dL (31.0-37.0); MCV 85.1 fL (80.0-100.0); MEAN PLATELET VOLUME 12.3 fL (7.4-10.4); MONOCYTES 7.4 % (2-11); NEUTROPHILS 59.8 % (40-80); PLATELET COUNT 191 10x3/uL (130-400); RBC 5.64 10x6/uL (4.20-6.10); RDW 15.1 % (11.5-14.5)
[2018-10-29 01:09] LABS: ALBUMIN 3.6 g/dL (3.4-5.0); ALKALINE PHOSPHATASE 82 U/L (46-116); ALT (SGPT) 17 U/L (10-68); BILIRUBIN - TOTAL 0.41 mg/dL (0.2-1.3); CALC OSMOLALITY 285 mosm/kg (275-300); CALCIUM 8.8 mg/dL (8.5-10.1); CARBON DIOXIDE 18.4 mmol/L (21.0-32.0); CHLORIDE - SERUM 103 mmol/L (98-107); CREATININE - SERUM 1.9 mg/dL (0.6-1.3); GLUCOSE 166 mg/dL (74-106); POTASSIUM - SERUM 4.3 mmol/L (3.5-5.1); PROTEIN - SERUM 8.8 g/dL (6.4-8.2); SODIUM 139 mmol/L (136-145); UREA NITROGEN 23 mg/dL (7-18); eGFR NON AFRICAN AMERICAN 38 mL/min (90-120)
[2018-10-29 01:21] LABS: CKMB 1.6 U/L (0.0-3.6); CREATINE KINASE 99 UL (21-232); PRO BNP 7435 pg/mL (0-125); TROPONIN-I 0.048 ng/mL (0.000-0.060)
--- NOTE | 2018-10-29 02:31 | NUR ---
PT ARRIVED TO FLOOR VIA STRECHER. PT TRANSFERED TO BED. ALERT AND ORIENTED COMP;AINS OF 8/10 PAIN IN CHEST. PT ARRIVED TO FLOOR ON BUMEX DRIP @ 5ML/HR. PT BED LOW CALL LIGHT WITHIN REACH. WILL CONTINUE TO MONITOR.
--- NOTE | 2018-10-29 02:45 | NUR ---
PT BREATHING SOUNDS SNORING LIKE. RR- 16. WILL CONTINUE TO MONITOR.
[2018-10-29 03:44] VITALS: BP 137/84; BMI 28.8
--- NOTE | 2018-10-29 04:11 | NUR ---
PT RESING COMFORTABLY IN BED. NO S/S OF DISTRESS. RESPIRATIONS EVEN AND UNLABORED. BUMEX DRIP GOING AT 10MG/HR. BED LOW CALL LIGHT WITHIN REACH. WILL CONTINUE TO MONITOR.
--- NOTE | 2018-10-29 04:15 | NUR ---
RESTING IN BED WITH EYES CLOSED. NO S/S OF DISTRESS OBSERVED. WILL CONT. POC.
[2018-10-29] MEDS ORDERED: DEMEROL 50 M50 MG/ML IM (09:25)
--- NOTE | 2018-10-29 09:38 | NUR ---
PER MARIA L ERNST APN, OK TO ORDER NORCO FOR PT EVEN THOUGH HE IS ALLERGIC TO MORPHINE AND CODEINE.
--- NOTE | 2018-10-29 09:49 | NUR ---
AFTER OPENING NORCO PACKAGE PT REFUSED TO TAKE NORCO STATED " I WANT SOMETHIGN THAT IS GOING TO WORK FAST, NOT THAT STUPID PILL". EXPLAINED TO PT THAT'S WHAT MARIA L LEPE ORDERED FOR HIM. PT STATED "SHE IS STUPID. TELL HER I WANT SOMETHIGN ELSE." WILL NOTIFY MARIA L LEPE.
--- NOTE | 2018-10-29 10:04 | NUR ---
WAS NOTIFIED BY CLOTH WINDER THAT PT WANTED SOME PAIN MEDICATION AND NEEDED TO TALK TO THIS NURSE, WENT TO SEE WHAT PT NEEDED. PT UPSET BECAUSE HE HAS NOT HAD ANYTHING FOR PAIN, EVEN THOUGH A NORCO WAS AFFORD AND PT REFUSED. INFORMED PT THAT I NOTIFIED RECREATION ESTABLISHMENT MANAGER THAT HE WANTS SOMETHING ELSE FOR PAIN AND THAT I WAS INFORMED THAT RECREATION ESTABLISHMENT MANAGER WOULD ORDER SOMETHING ELSE. PT STATED " THAT'S WHAT SHE SAID EARLIER, TELL THAT FAT ASS TO COME IN HERE AND WE WILL HAVE A TALK." TOLD PT THAT SOON THE RECREATION ESTABLISHMENT MANAGER PUTS IN THE ORDER THAT I WILL GIVE HIM SOME PAIN MEDICATION.
--- NOTE | 2018-10-29 10:39 | NUR ---
LUCINDA GREGORY WENT TO TALK TO PT ABOUT HIS PAIN MEDICATIONS. LUCINDA OFFERED HIM THE NORCO AND PT REFUSED STAYED HE WAS LEAVING BUT FEFUSED TO SIGN AMA FORMS.
[2018-10-29 11:32] VITALS: Ht 172.7 cm; Wt 78.6 kg
--- NOTE | 2018-10-31 09:11 | MORECARE ---
CASE MANAGEMENT DISCHARGE SUMMARY PATIENT: CAROLINA MILLS RAY UNIT: [id number] ADM DATE: 10/29/18 AGE: 63 : 51 SEX: M ROOM/BED: D.[facility] AUTHOR: HUONG GARCIA PHYSICIAN: REFERRING PHYSICIAN: BIRD KIM MD DATE OF SERVICE: 10/31/18 Discharge Plan Patient Name: CAROLINA MILLS [facility] [facility] 1955 Planned Disposition: Left Against Medical Advice Anticipated Discharge Date: 10/29/18 Discharge Date: 10/29/2018 Expected LOS: 1 Initial Reviewer: [email or web address] Initial Review Date: 10/31/2018 Generated: 10/31/18 10:11 am Patient Name: CAROLINA MILLS Page 03751 at 0911 All edits/amendments must be made on the electronic document DICTATION DATE: 10/31/18910 LEAF BINNER: FRANCES 10/31/18910 RPT#: [id number] DC DATE:10/29/18 STATUS: DIS IN [facility] [address] [place] [address] END OF REPORT
== END 2018-10-29 10:54 | disposition left against medical advice (07) | DRG 293 ==
LOC: D.ER 00:25 → D.EDHOLD 01:36 → D.M2 02:02
PROVIDERS: Emergency Medicine; ADMIT Internal Medicine Nephrology
DX: I11.0 Hypertensive heart disease with heart failure (principal); I25.119 Atherosclerotic heart disease of native coronary artery with unspecified angina pectoris; I50.23 Acute on chronic systolic (congestive) heart failure; E11.9 Type 2 diabetes mellitus without complications; E78.5 Hyperlipidemia, unspecified; R42 Dizziness and giddiness; R61 Generalized hyperhidrosis; Z95.5 Presence of coronary angioplasty implant and graft; Z95.1 Presence of aortocoronary bypass graft; Z86.73 Personal history of transient ischemic attack (TIA), and cerebral infarction without residual deficits

== ENCOUNTER 2018-11-01 18:27 | Emergency (ER) | payer MEDICARE ==
[~2018-11-01] VITALS: Ht 172.7 cm; Wt 78.6 kg
[~2018-11-01 18:27] MED LIST changes: +DEMEROL 50 M50 MG/ML IM
[2018-11-01 18:35] VITALS: Ht 172.7 cm; Wt 78.6 kg
[2018-11-01 19:26] LABS: BASOPHILS 1.4 % (0-2); HEMATOCRIT 43.9 % (42.0-54.0); HEMOGLOBIN 14.4 g/dL (13.5-17.5); IMMATURE GRANULOCYTES 0.2 % (0-5); LYMPHOCYTES 18.6 % (15-50); MCH 27.6 pg (26.0-34.0); MCHC 32.8 g/dL (31.0-37.0); MCV 84.1 fL (80.0-100.0); MEAN PLATELET VOLUME 11.1 fL (7.4-10.4); MONOCYTES 11.2 % (2-11); NEUTROPHILS 63.6 % (40-80); PLATELET COUNT 140 10x3/uL (130-400); RBC 5.22 10x6/uL (4.20-6.10); RDW 14.9 % (11.5-14.5); WBC 9.8 10x3/uL (4.8-10.8)
[2018-11-01 19:50] LABS: APTT 29.6 SECONDS (22.8-39.4); INR 1.11 (0.85-1.17); PROTIME 13.8 SECONDS (11.6-15.0)
[2018-11-01 19:57] LABS: ALBUMIN 3.4 g/dL (3.4-5.0); ALKALINE PHOSPHATASE 77 U/L (46-116); ALT (SGPT) 17 U/L (10-68); BILIRUBIN - TOTAL 0.55 mg/dL (0.2-1.3); CALC OSMOLALITY 284 mosm/kg (275-300); CALCIUM 9.3 mg/dL (8.5-10.1); CARBON DIOXIDE 26.3 mmol/L (21.0-32.0); CHLORIDE - SERUM 102 mmol/L (98-107); CREATININE - SERUM 2.2 mg/dL (0.6-1.3); POTASSIUM - SERUM 4.5 mmol/L (3.5-5.1); PROTEIN - SERUM 8.4 g/dL (6.4-8.2); SODIUM 139 mmol/L (136-145); UREA NITROGEN 31 mg/dL (7-18); eGFR NON AFRICAN AMERICAN 32 mL/min (90-120)
[2018-11-01 20:02] LABS: GLUCOSE 96 mg/dL (74-106)
[2018-11-01 20:04] LABS: CREATINE KINASE 124 UL (21-232); MAGNESIUM - SERUM 2.2 mg/dL (1.8-2.4)
[2018-11-01 20:46] LABS: CKMB 1.4 U/L (0.0-3.6)
[2018-11-01 20:47] LABS: TROPONIN-I 2.833 ng/mL (0.000-0.060)
[2018-11-01 23:49] VITALS: BP 141/70
== END 2018-11-02 00:43 | disposition other institution (70) ==
LOC: D.ER 18:27
PROVIDERS: Emergency Medicine
DX: I50.9 Heart failure, unspecified (principal); R74.8 Abnormal levels of other serum enzymes; Z86.73 Personal history of transient ischemic attack (TIA), and cerebral infarction without residual deficits; E11.9 Type 2 diabetes mellitus without complications; I10 Essential (primary) hypertension

== ENCOUNTER 2018-11-10 05:23 | Emergency (ER) | payer MEDICARE ==
[~2018-11-10] VITALS: Ht 172.7 cm; Wt 77.3 kg
[2018-11-10 05:25] VITALS: Ht 172.7 cm; Wt 77.3 kg
[2018-11-10 06:05] LABS: APTT 25.4 SECONDS (22.8-39.4); INR 1.17 (0.85-1.17); PROTIME 14.4 SECONDS (11.6-15.0)
[2018-11-10 06:06] LABS: ALBUMIN 3.6 g/dL (3.4-5.0); ALKALINE PHOSPHATASE 89 U/L (46-116); ALT (SGPT) 17 U/L (10-68); CALC OSMOLALITY 293 mosm/kg (275-300); CALCIUM 9.1 mg/dL (8.5-10.1); CARBON DIOXIDE 21.4 mmol/L (21.0-32.0); CHLORIDE - SERUM 102 mmol/L (98-107); CREATININE - SERUM 2.6 mg/dL (0.6-1.3); POTASSIUM - SERUM 3.6 mmol/L (3.5-5.1); PROTEIN - SERUM 8.8 g/dL (6.4-8.2); SODIUM 141 mmol/L (136-145); UREA NITROGEN 24 mg/dL (7-18); eGFR NON AFRICAN AMERICAN 26 mL/min (90-120)
[2018-11-10 06:08] LABS: GLUCOSE 264 mg/dL (74-106)
[2018-11-10 06:16] LABS: EOSINOPHILS 2.4 % (0-7); HEMATOCRIT 47.6 % (42.0-54.0); HEMOGLOBIN 15.1 g/dL (13.5-17.5); IMMATURE GRANULOCYTES 0.2 % (0-5); LYMPHOCYTES 20.9 % (15-50); MCH 27.4 pg (26.0-34.0); MCHC 31.7 g/dL (31.0-37.0); MCV 86.2 fL (80.0-100.0); MEAN PLATELET VOLUME 11.9 fL (7.4-10.4); MONOCYTES 5.9 % (2-11); NEUTROPHILS 69.6 % (40-80); RBC 5.52 10x6/uL (4.20-6.10); RDW 14.6 % (11.5-14.5); WBC 17.8 10x3/uL (4.8-10.8)
[2018-11-10 06:17] LABS: PLATELET COUNT 191 10x3/uL (130-400)
[2018-11-10 06:21] LABS: CKMB 1.8 U/L (0.0-3.6); CREATINE KINASE 98 UL (21-232); MAGNESIUM - SERUM 2.3 mg/dL (1.8-2.4); PRO BNP 19948 pg/mL (0-125)
[2018-11-10 06:22] LABS: TROPONIN-I 0.129 ng/mL (0.000-0.060)
[2018-11-10 06:24] LABS: APPEARANCE HAZY (CLEAR); BILIRUBIN NEGATIVE (NEGATIVE); COLOR YELLOW (YELLOW); GLUCOSE 50 mg/dL (NEGATIVE); KETONE NEGATIVE (NEGATIVE); NITRITE NEGATIVE (NEGATIVE); PROTEIN 3+ mg/dL (NEGATIVE); UROBILINOGEN NORMAL (NORMAL)
[2018-11-10 06:26] LABS: WHITE CELLS - URINE OCC /hpf (0-5)
[2018-11-10 06:27] LABS: AMORPHOUS SEDIMENT <1+ /lpf (NONE SEEN); BACTERIA FEW /hpf (NONE SEEN); EPITHELIAL CELLS OCC /hpf (0-5)
[2018-11-10 09:50] VITALS: BP 157/106
== END 2018-11-10 09:52 | disposition other institution (70) ==
LOC: D.ER 05:23
PROVIDERS: Family Medicine
DX: A41.9 Sepsis, unspecified organism (principal); R74.8 Abnormal levels of other serum enzymes; D72.829 Elevated white blood cell count, unspecified; J81.1 Chronic pulmonary edema; R06.02 Shortness of breath

== ENCOUNTER 2018-11-16 15:16 | Emergency (ER) | payer MEDICARE ==
[~2018-11-16] VITALS: Ht 172.7 cm; Wt 78.2 kg
[2018-11-16 15:24] VITALS: Ht 172.7 cm; Wt 78.2 kg
[2018-11-16 15:42] LABS: BASOPHILS 0.2 % (0-2); EOSINOPHILS 2.1 % (0-7); HEMATOCRIT 44.2 % (42.0-54.0); IMMATURE GRANULOCYTES 0.3 % (0-5); LYMPHOCYTES 20.4 % (15-50); MCH 27.5 pg (26.0-34.0); MCHC 31.7 g/dL (31.0-37.0); MCV 86.8 fL (80.0-100.0); MONOCYTES 9.5 % (2-11); NEUTROPHILS 67.5 % (40-80); PLATELET COUNT 183 10x3/uL (130-400); RBC 5.09 10x6/uL (4.20-6.10); WBC 17.9 10x3/uL (4.8-10.8)
[2018-11-16 15:55] LABS: INR 1.18 (0.85-1.17); PROTIME 14.4 SECONDS (11.6-15.0)
[2018-11-16 16:08] LABS: ALBUMIN 3.4 g/dL (3.4-5.0); ALKALINE PHOSPHATASE 95 U/L (46-116); ALT (SGPT) 68 U/L (10-68); BILIRUBIN - TOTAL 0.46 mg/dL (0.2-1.3); CALC OSMOLALITY 307 mosm/kg (275-300); CALCIUM 8.4 mg/dL (8.5-10.1); CARBON DIOXIDE 27.1 mmol/L (21.0-32.0); CHLORIDE - SERUM 104 mmol/L (98-107); GLUCOSE 263 mg/dL (74-106); POTASSIUM - SERUM 4.1 mmol/L (3.5-5.1); SODIUM 140 mmol/L (136-145); UREA NITROGEN 69 mg/dL (7-18); eGFR NON AFRICAN AMERICAN 22 mL/min (90-120)
[2018-11-16 16:21] LABS: APTT < 22.0 SECONDS (22.8-39.4); CREATINE KINASE 145 UL (21-232); MAGNESIUM - SERUM 2.9 mg/dL (1.8-2.4)
[2018-11-16 16:28] LABS: TROPONIN-I 1.121 ng/mL (0.000-0.060)
[2018-11-16 16:48] LABS: PRO BNP 33910 pg/mL (0-125)
[2018-11-16 19:01] VITALS: BP 95/66
== END 2018-11-16 21:53 | disposition other institution (70) ==
LOC: D.ER 15:16
PROVIDERS: Family Medicine
DX: I50.9 Heart failure, unspecified (principal); R06.03 Acute respiratory distress; N28.9 Disorder of kidney and ureter, unspecified; I10 Essential (primary) hypertension; E78.5 Hyperlipidemia, unspecified; J44.9 Chronic obstructive pulmonary disease, unspecified

== ENCOUNTER 2018-12-16 15:16 | Inpatient (IN) | payer OTHER ==
[~2018-12-16] VITALS: Ht 172.7 cm; Wt 69.7 kg
[2018-12-16] VITALS (10 sets, daily range): BP systolic 120–237; BP diastolic 71–167; BMI 25.5
--- NOTE | ~2018-12-16 | HEMODYNAMI ---
PATIENT:CAROLINA MILLS MEDICAL RECORD: [id number] : [birth year] LOCATION:[facility] D.2304 [facility] [id number] ADMISSION DATE: 12/16/18 Generatedon:12/23/201815:11 Patient name: CAROLINA MILLS Patient #: [id number] SSN: : 1955 Date of study: 12/23/2018 Page: Of Hemodynamic Procedure Report Patient Data Patient Demographics Procedure consent was obtained First Name: CAROLINA Gender: Male Last Name: LINA : 1955 [facility] Initial: FLOR Age: 63 year(s) Patient #: [id number] Race: Unknown Additional ID: [id number] Contact details Address: [address] [place] [address] [place] State: [place] City: [facility] Zip code: [address] Admission Admission Data Admission Date: 12/16/2018 Admission Time: 19:19 Admit Source: Other Room #: D.2304 Weight (lbs.): 178.58 Weight (kg.): 81 Lab Results Lab Result Date: 12/23/2018 Lab Result Time: 0:00 Biochemistry Name Units Result Min Max BUN mg/dl 84 --(----)-* 7 18 Creatinine mg/dl 2.7 --(----)-* 0.6 1.3 CBC Name Units Result Min Max Hemoglobin g/dl 11.6 *-(----)-- 13.5 17.5 Procedure Procedure Types Cath Procedure Diagnostic Procedure LHC LHC w/Coronaries w/Grafts PCI Procedure Coronary Stent Coronary Stent Initial Procedure Description Procedure Date Procedure Date: 12/23/2018 Procedure Start Time: 14:51 Procedure End Time: 15:09 Procedure Staff Name Function Get Leonard MD Performing Physician Caterina Douglas RT Monitor Salty Perez RT Scrub David Hummel RN Nurse Procedure Data Cath Procedure Fluoroscopy Diagnostic fluoroscopy Total fluoroscopy Time: 6.6 time: 6.6 min min Diagnostic fluoroscopy Total fluoroscopy dose: 688 dose: 688 mGy mGy Contrast Material Contrast Material Type Amount (ml) Isovue 300 97 Entry Location Entry Primary Successful Side Size Upsize Upsize Entry Closure Succes sful Closure Location (Fr) 1 (Fr) 2 (Fr) Remarks Device Remarks Femoral Right 5 Fr 6 Fr Exoseal artery Short Estimated blood loss: 5 ml Diagnostic catheters Device Type Used For End Catheter Placement MULTIPACK Pigtail 5 Fr Multi-vessel catheter Angiography MULTIPACK JL 4.0 5Fr Left Coronary catheter Angiography MULTIPACK 3DRC 5Fr Multi-vessel catheter Angiography DIAGNOSTIC AR MOD 5Fr Multi-vessel Catheter ([id number]) Angiography Procedure Complications No complications Procedure Medications Medication Administration Route Dosage 0.9% NaCl I.V. 100 ml/hr Oxygen 15 l/min Heparin Flush Bag added to field 2 bags (1000units/500ml NS) Lidocaine 2% added to field 20 Diprivan 1% 20 mcg/kg/min (Propofol) Heparin Bolus I.V. 4000 units Hemodynamics Rest HGB: 11.6 (g/dl) Heart Rate: 88 (bpm) Pressure Samples Time Site Value (mmHg) Purpose Heart Use Rate(bpm) 14:52 LV 119/3,7 Snapshot 82 Snapshots Pre Cath Intra NCS Post Cath Vital Signs Time Heart Resp SPO2 etCO2 NIBP (mmHg) Rhythm Pain Sedation Rate (ipm) (%) (mmHg) Status Level (bpm) 14:35:37 80 15 100 0 127/81(102) NSR 0 (11) 7(A) , No pain 14:39:49 83 15 100 0 130/82(107) NSR 0 (11) 7(A) , No pain 14:44:01 80 15 100 0 135/87(108) NSR 0 (11) 7(A) , No pain 14:48:15 72 15 100 139/84(115) NSR 0 (11) 7(A) , No pain 14:52:31 76 15 100 118/79(100) NSR 0 (11) 7(A) , No pain 14:57:30 71 15 100 144/82(109) NSR 0 (11) 7(A) , No pain 15:01:46 69 15 100 159/89(123) NSR 0 (11) 7(A) , No pain 15:06:14 68 15 100 138/63(107) NSR 0 (11) 7(A) , No pain Medications Time Medication Route Dose Verified Delivered Reason Notes Effectiveness by by 14:36:45 0.9% NaCl I.V. 100 ml/hr David David Per phys ician Shaheed Hummel RN RN 14:37:25 Oxygen OETT 15 l/min David David for low 02 sats Shaheed Hummel RN RN 14:37:44 Heparin Flush added to 2 bags David David used for Bag field Lormyke Hummel procedure (1000units/500ml RN RN NS) 14:37:55 Lidocaine 2% added to 20ml vial David David for loca l field Lorigan Lorigan anesthetic RN RN 14:44:10 Diprivan 1% I.V.(infusing 20mcg/kg/min David David for salma tion (Propofol) upon arrival Shaheed Hummel from ICU) RN RN 14:59:51 Heparin Bolus I.V. 4000 units David David for Shaheed Patemyke anticoagulation RN coal cutter Log Time Note 14:34:07 Diagnostic Cath status Urgent 14:34:10 Salty Perez RT(R) sent for patient. Start room use. 14:34:12 Time tracking: Regular hours (M-F 7:00 - 5:00) 14:34:17 Plan of Care:Hemodynamics will remain stable., Cardiac rhythm will remain stable., Comfort level will be maintained., Respiratory function will remain adequate., Patient/ family verbilizes understanding of procedure., Procedure tolerated without complication., Recovers from procedure without complications.. 14:34:28 Patient received from ICU to [facility] 1 Alert and oriented. Tansferred to table in Supine position. 14:34:29 Warm blankets applied, and yan hugger turned on for patient comfort. 14:34:30 Correct patient and procedure confirmed by team. 14:34:32 Signed procedure consent form obtained from patient. 14:34:35 ECG and BP/O2 sat monitors applied to patient. 14:34:36 Vital chart was started 14:34:56 Baseline sample Acquired. 14:35:01 Rhythm: sinus rhythm 14:35:04 Full Disclosure recording started 14:36:15 H&P Date Dictated: 12/18/2018 Within 30 days and on chart., H&P Addendum completed by physician on day of procedure. (MUST COMPLETE FOR ALL OUTPATIENTS). 14:36:17 Pre-procedure instructions explained to patient. 14:36:17 Pre-op teaching completed and patient verbalized understanding. 14:36:25 Family in waiting room. 14:36:28 Patient NPO since Midnight. 14:36:45 0.9% NaCl 100 ml/hr I.V. was administered by David Hummel RN; Per physician; 14:37:25 Oxygen 15 l/min OETT was administered by David Hummel RN; for low 02 sats; 14:37:44 Heparin Flush Bag (1000units/500ml NS) 2 bags added to field was administered by David Hummel RN; used for procedure; 14:37:55 Lidocaine 2% 20ml vial added to field was administered by David Hummel RN; for local anesthetic; 14:43:08 Was the patient premedicated? No 14:43:09 Is patient on blood thinner?Yes 14:43:12 ACC The patient was administered the following blood thiners within the last 24 hours: ACCPlavix 14:43:15 Patient diabetic? No. 14:44:10 Diprivan 1% (Propofol) 20mcg/kg/min I.V.(infusing upon arrival from ICU) was administered by David Hummel RN; for sedation; 14:44:32 Lab Result : Hemoglobin 11.6 g/dl 14:44:32 Lab Result : Creatinine 2.7 mg/dl 14:44:32 Lab Result : BUN 84 mg/dl 14:45:51 Patient Weight : 178.58 lbs 14:45:54 Admit Source: Other 14:46:08 Previous problem with sedation/anesthesia? Unknown ? 14:46:11 Snore? Unknown 14:46:12 Sleep apnea? Unknown 14:46:14 Deviated septum? Unknown 14:46:17 Opens mouth fully? No 14:46:19 Sticks out tongue? No 14:46:26 Airway obstruction? Unknown on vent 14:46:31 Dentures? No ? 14:46:35 Pre procedure: right dorsailis pedis pulse 1+ Palpable, but thready & weak; easily obliterated 14:46:37 Pre procedure: left dorsailis pedis pulse 1+ Palpable, but thready & weak; easily obliterated 14:46:39 Patient pain scale 0/10 ?. 14:46:59 IV patent on arrival in right IJ with 0.9% NaCl at O. 14:47:02 Lab results completed and on chart. 14:47:07 Right groin area was prepped with chlora-prep and draped in sterile fashion 14:47:08 Alarms reviewed by R. N. 14:47:08 Sharps counted by scrub and verified by R.N. 14:47:17 Maximum allowable Isovue 370 dose 150ml. Physician notified. (300ml for normal creatinines. For patients with creatinine of 1.7 or higher multiply weight(kg) x 5 divided by creatinine.) 14:51:06 Physician arrived 14:51:07 --------ALL STOP TIME OUT------ 14:51:07 Final Timeout: patient, procedure, and site verified with staff and physician. All members of the team are in agreement. 14:51:10 Right groin site verified by team. 14:51:16 Fire Safety Assessment: A--An alcohol-based skin anteseptic being used preoperatively., C--Open oxygen or nitrous oxide is being used., D--An ESU, laser, or fiber-optic light is being used. 14:51:26 Physical assessment completed. ASA score P 3 - A patient with severe systemic disease as per Get Leonard MD. 14:51:30 Sedation plan: IV Moderate Sedation Medication:Propofol 14:51:34 Use device set Femoral Dx 14:51:35 ACIST Syringe (86886) opened to sterile field. 14:51:36 Bag Decanter (2002) opened to sterile field. 14:51:36 Medline Cath Pack ([id number]) opened to sterile field. 14:51:37 DIAGNOSTIC WIRE .035 260cm J wire (572166) opened to sterile field. 14:51:38 ACIST Hand Control (43906) opened to sterile field. 14:51:38 ACIST Manifold (96314) opened to sterile field. 14:51:38 DIAGNOSTIC Multipack 5Fr catheter set (MO2648) opened to sterile field. 14:51:39 Tegaderm 4 x 4 (1626W) opened to sterile field. 14:51:40 SHEATH 5FR Elroy (XQQ133) opened to sterile field. 14:51:44 Procedure started. 14:51:47 Local anesthetic to right femoral artery with Lidocaine 2% by Get Leonard MD.INITIAL ACCESS ONLY 14:51:59 A 5 Fr sheath was inserted into the Right Femoral artery 14:52:10 A MULTIPACK Pigtail 5 Fr catheter was advanced over the wire and used for Multi-vessel Angiography. 14:52:14 LV hemodynamics recorded. 14:52:15 LV gram done using ARTEAGA 14:52:35 EF : 15 % 14:52:45 Catheter removed. 14:52:50 A MULTIPACK JL 4.0 5Fr catheter was advanced over the wire and used for Left Coronary Angiography. 14:53:16 LCA angiography performed. 14:53:18 Injector settings: Ml/sec: 3, Volume: 6, 14:53:20 Catheter removed. 14:53:26 A MULTIPACK 3DRC 5Fr catheter was advanced over the wire and used for Multi-vessel Angiography. 14:54:39 SHAW angiography performed. 14:54:44 RCA angiography performed. 14:55:03 Injector settings: Ml/sec: 3, Volume: 6, 14:55:05 Catheter removed. 14:55:20 A DIAGNOSTIC AR MOD 5Fr Catheter ([id number]) was advanced over the wire and used for Multi-vessel Angiography. 14:56:18 SVG to LAD angiography performed. 14:56:55 SVG to RCA occluded. 14:57:18 GUIDE 6FR AR 2.0 SH catheter ([id number]) opened to sterile field. 14:57:19 CHOICE PT Extra Support 182cm wire ([id number]) opened to sterile field. 14:57:20 INFLATOR Merit BasixCompak (UK7167) opened to sterile field. 14:57:20 SHEATH 6FR Elroy (LLR926) opened to sterile field. 14:58:26 Catheter removed. 14:58:35 Sheath upsized to a 6 Fr Short. 14:59:37 6 Fr ar 2 sh guide catheter was inserted over the wire 14:59:51 Heparin Bolus 4000 units I.V. was administered by David Hummel RN; for anticoagulation; 15:00:00 choice pt wire advanced. 15:02:43 Inflate balloon Inflation number: 1 A EUPHORA 2.0 x 30 Balloon ([id number]) was prepped and advanced across the R PDA, then inflated to 13 PETER for 0:10 (min:sec). 15:02:53 Inflation number: 2 The EUPHORA 2.0 x 30 Balloon ([id number]) was reinflated across the R PDA, to 13 PETER for 0:10 (min:sec). 15:03:02 Inflation number: 3 The EUPHORA 2.0 x 30 Balloon ([id number]) was reinflated across the R PDA, to 17 PETER for 0:10 (min:sec). 15:05:01 Balloon removed over the wire. 15:05:29 Place stent Inflation Number: 4 A ISAAC RX 2.0 x 30 stent ([id number]) was prepped and advanced across the R PDA. The stent was deployed at 17 PETER for 0:10 (min:sec). 15:06:05 Stent catheter was removed intact over wire. 15:06:06 Wire removed. 15:06:06 Guide catheter removed. 15:06:13 EXOSEAL 6Fr (EX600) opened to sterile field. 15:06:21 Sheath removed intact; hemostasis achieved with Exoseal to the Right Femoral artery. 15:06:33 Procedure ended.(Physican Out) 15:07:02 Fluoroscopy time 06.60 minutes. 15:07:09 Fluoroscopy dose: 688 mGy 15:07:09 Flurop Dose total: 688 15:07:50 Contrast amount:Isovue 300 97ml. 15:07:51 Sharps counted by scrub and verified by R.N. 15:07:54 Insertion/operative site no bleeding no hematoma. 15:07:57 Post-op/insertion site Right Femoral artery dressed using a 4 x 4 and Tegaderm. 15:08:01 Post right femoral artery:stable 15:08:03 Post Procedure Pulses reassessed and unchanged 15:08:05 Post procedure rhythm: unchanged. 15:08:10 Estimated blood loss: 5 ml 15:08:11 Post procedure instruction explained to patient.Patient verbalizes understanding. 15:08:12 Patient needs reinforcement of post procedure teaching. 15:08:46 Procedure type changed to Cath procedure, Diagnostic procedure, LHC, LHC w/Coronaries w/Grafts, PCI procedure, Coronary Stent, Coronary Stent Initial 15:08:47 Procedure and supply charges have been captured, reviewed, submitted and are correct. 15:08:52 Procedure Complication : No complications 15:08:55 Vital chart was stopped 15:08:55 See physician's report for complete and final results. 15:09:02 Report given to ICU. 15:09:05 Patient transfered to ICU with Stretcher. 15:09:08 Procedure ended. 15:09:08 Full Disclosure recording stopped 15:09:41 ACC-PCI Only Patient was given prescriptions, or instructed by Get Leonard MD to start/continue the following medications upon discharge: Plavix 15:09:47 End room use (Document Last) Intervention Summary Intervention Notes Time ActionType Lesion and Equipment Used Action# Pressure Duration Attributes 15:02:43 Inflate R PDA EUPHORA 2.0 x 1 13 00:10 balloon 30 Balloon ([id number]) 15:02:53 Reinflate R PDA EUPHORA 2.0 x 2 13 00:10 balloon 30 Balloon ([id number]) 15:03:02 Reinflate R PDA EUPHORA 2.0 x 3 17 00:10 balloon 30 Balloon ([id number]) 15:05:29 Place stent R PDA ISAAC RX 2.0 x 4 17 00:10 30 stent ([id number]) Device Usage Item Name Manufacture Quantity Catalog Number Hospital Part Current M inimal Lot# / Charge Number Stock Stock Serial# Code ACIST Syringe Acist 1 04965 397830 740680 388207 2 0 (12022) Medical Systems Inc Bag Decanter Microtek 1 2001S 945925 19186 038642 5 () Medical Inc. Medline Cath Medline 1 [id number] 149028 13720 882101 5 Pack ([id number]) DIAGNOSTIC St Edwin 1 994983 418228 807807 220328 3 0 WIRE .035 260cm J wire (687064) ACIST Hand Acist 1 35476 557126 474857 257992 5 Control Medical (07757) Systems Inc ACIST Manifold Acist 1 93851 747291 380900 615723 5 (43578) Medical Systems Inc DIAGNOSTIC Cardinal 1 SC3816 023155 31807 030040 3 0 Multipack 5Fr Health catheter set (OS3793) Tegaderm 4 x 4 3M 1 1626W 743725 107521 382706 5 (1626W) SHEATH 5FR Terumo 1 [id number] 996748 482554 300606 5 Elroy (XSW621) MULTIPACK Cardinal 1 602585 5 Pigtail 5 Fr Health catheter MULTIPACK JL Cardinal 1 254963 5 4.0 5Fr Health catheter MULTIPACK 3DRC Cardinal 1 227313 5 5Fr catheter Health DIAGNOSTIC AR Cardinal 1 [id number] 719616 538125 145516 1 5 MOD 5Fr Health Catheter ([id number]) GUIDE 6FR AR Medtronic 1 [id number] 780425 25707 348767 1 2.0 SH catheter ([id number]) CHOICE PT [place] 1 [id number] 850169 904273 898333 5 Extra Support Scientific 182cm wire ([id number]) INFLATOR Merit Merit 1 GU1611 947393 412456 383042 1 5 GobyriInterEx Medical (DH3215) SHEATH 6FR Terumo 1 DKX870 095755 620320 963840 4 0 Elroy ([id number]) EUPHORA 2.0 x Medtronic 1 [id number] 871836 415706 807239 5 [id number] 30 Balloon ([id number]) ISAAC RX 2.0 x Medtronic 1 [id number] 209636 5692581 098835 5 [id number] 30 stent ([id number]) EXOSEAL 6Fr Cardinal 1 EX600 057844 410746 457441 1 0 (EX600) Health Signature Audit Bement Stage Time Signature Unsigned Intra-Procedure 12/23/2018 Caterina Douglas 3:10:59 PM RT(R) Signatures Monitor : Caterina Douglas RT Signature : Date : Time : [facility] [address] [place] [address]
[2018-12-16 15:39] LABS: BASOPHILS 0.5 % (0-2); EOSINOPHILS 2.3 % (0-7); HEMATOCRIT 49.6 % (42.0-54.0); HEMOGLOBIN 16.5 g/dL (13.5-17.5); IMMATURE GRANULOCYTES 0.3 % (0-5); LYMPHOCYTES 19.3 % (15-50); MCH 27.9 pg (26.0-34.0); MCHC 33.3 g/dL (31.0-37.0); MCV 83.8 fL (80.0-100.0); MONOCYTES 7.2 % (2-11); NEUTROPHILS 70.4 % (40-80); RBC 5.92 10x6/uL (4.20-6.10); RDW 15.7 % (11.5-14.5); WBC 11.7 10x3/uL (4.8-10.8)
[2018-12-16 15:42] LABS: PLATELET COUNT 143 10x3/uL (130-400)
[2018-12-16 15:58] LABS: ALBUMIN 3.5 g/dL (3.4-5.0); ALKALINE PHOSPHATASE 110 U/L (46-116); ALT (SGPT) 27 U/L (10-68); BILIRUBIN - TOTAL 0.47 mg/dL (0.2-1.3); CALC OSMOLALITY 279 mosm/kg (275-300); CALCIUM 9.3 mg/dL (8.5-10.1); CARBON DIOXIDE 25.7 mmol/L (21.0-32.0); CHLORIDE - SERUM 102 mmol/L (98-107); CREATININE - SERUM 2.1 mg/dL (0.6-1.3); SODIUM 138 mmol/L (136-145); UREA NITROGEN 19 mg/dL (7-18); eGFR NON AFRICAN AMERICAN 34 mL/min (90-120)
[2018-12-16 16:03] LABS: GLUCOSE 126 mg/dL (74-106)
[2018-12-16 16:15] LABS: CREATINE KINASE 66 UL (21-232); PRO BNP 20685 pg/mL (0-125)
[2018-12-16 16:25] LABS: INR 1.01 (0.85-1.17); PROTIME 12.8 SECONDS (11.6-15.0)
[2018-12-16 16:26] LABS: APTT 26.9 SECONDS (22.8-39.4)
[2018-12-16 16:59] LABS: CKMB 0.3 U/L (0.0-3.6)
[2018-12-16 17:04] LABS: TROPONIN-I 0.095 ng/mL (0.000-0.060)
[2018-12-17] VITALS (24 sets, daily range): BP systolic 113–157; BP diastolic 64–87; BMI 25.6
[2018-12-17 07:24] LABS: BASOPHILS 0.1 % (0-2); EOSINOPHILS 0 % (0-7); HEMATOCRIT 42.7 % (42.0-54.0); IMMATURE GRANULOCYTES 0.2 % (0-5); LYMPHOCYTES 6.4 % (15-50); MCH 26.9 pg (26.0-34.0); MCHC 32.8 g/dL (31.0-37.0); MEAN PLATELET VOLUME 10.3 fL (7.4-10.4); MONOCYTES 1.8 % (2-11); NEUTROPHILS 91.5 % (40-80); PLATELET COUNT 117 10x3/uL (130-400); RBC 5.21 10x6/uL (4.20-6.10); RDW 15.7 % (11.5-14.5); WBC 9.4 10x3/uL (4.8-10.8)
[2018-12-17 08:20] LABS: ANION GAP 18.5 mmol/L (8-16); BILIRUBIN - TOTAL 0.49 mg/dL (0.2-1.3); CALCIUM 8.6 mg/dL (8.5-10.1); CARBON DIOXIDE 21.2 mmol/L (21.0-32.0); MAGNESIUM - SERUM 2.1 mg/dL (1.8-2.4); PHOSPHOROUS 2.6 mg/dL (2.5-4.9); POTASSIUM - SERUM 3.7 mmol/L (3.5-5.1)
[2018-12-17 08:22] LABS: ALBUMIN 2.6 g/dL (3.4-5.0); CREATININE - SERUM 3.1 mg/dL (0.6-1.3)
[2018-12-17 18:06] LABS: APPEARANCE CLEAR (CLEAR); BILIRUBIN NEGATIVE (NEGATIVE); COLOR DK YELLOW (YELLOW); GLUCOSE NEGATIVE (NEGATIVE); KETONE NEGATIVE (NEGATIVE); NITRITE NEGATIVE (NEGATIVE); PROTEIN 1+ mg/dL (NEGATIVE); SPECIFIC GRAVITY 1.015 (1.005-1.020); UROBILINOGEN NORMAL (NORMAL)
[2018-12-18] VITALS (24 sets, daily range): BP systolic 102–176; BP diastolic 61–119; Ht 172.7 cm; Wt 69.7 kg
[2018-12-18 02:45] LABS: BASOPHILS 0.1 % (0-2); EOSINOPHILS 0 % (0-7); HEMOGLOBIN 13.6 g/dL (13.5-17.5); IMMATURE GRANULOCYTES 0.2 % (0-5); LYMPHOCYTES 6.7 % (15-50); MCH 27.2 pg (26.0-34.0); MCHC 33.2 g/dL (31.0-37.0); MEAN PLATELET VOLUME 11.2 fL (7.4-10.4); MONOCYTES 2.9 % (2-11); NEUTROPHILS 90.1 % (40-80); PLATELET COUNT 133 10x3/uL (130-400); RDW 15.8 % (11.5-14.5)
[2018-12-18 02:52] LABS: WBC 13.2 10x3/uL (4.8-10.8)
[2018-12-18 03:16] LABS: ALBUMIN 2.7 g/dL (3.4-5.0); ALKALINE PHOSPHATASE 66 U/L (46-116); ALT (SGPT) 32 U/L (10-68); BILIRUBIN - TOTAL 0.58 mg/dL (0.2-1.3); CALCIUM 8.6 mg/dL (8.5-10.1); CHLORIDE - SERUM 100 mmol/L (98-107); CREATININE - SERUM 3.8 mg/dL (0.6-1.3); GLUCOSE 257 mg/dL (74-106); POTASSIUM - SERUM 3.4 mmol/L (3.5-5.1); PROTEIN - SERUM 6.8 g/dL (6.4-8.2); SODIUM 136 mmol/L (136-145); eGFR NON AFRICAN AMERICAN 17 mL/min (90-120)
[2018-12-18 03:17] LABS: CALC OSMOLALITY 291 mosm/kg (275-300); CREATINE KINASE 355 UL (21-232); UREA NITROGEN 43 mg/dL (7-18)
[2018-12-18 03:18] LABS: CKMB 43.4 U/L (0.0-3.6)
[2018-12-19] VITALS (24 sets, daily range): BP systolic 117–149; BP diastolic 62–91
[2018-12-19 04:38] LABS: HEMATOCRIT 36.2 % (42.0-54.0); HEMOGLOBIN 11.8 g/dL (13.5-17.5); MCHC 32.6 g/dL (31.0-37.0); MCV 82.8 fL (80.0-100.0); MEAN PLATELET VOLUME 10.6 fL (7.4-10.4); PLATELET COUNT 124 10x3/uL (130-400); RBC 4.37 10x6/uL (4.20-6.10); RDW 16.3 % (11.5-14.5)
[2018-12-19 04:40] LABS: WBC 9.8 10x3/uL (4.8-10.8)
[2018-12-19 04:47] LABS: INR 1.18 (0.85-1.17); PROTIME 14.5 SECONDS (11.6-15.0)
[2018-12-19 05:14] LABS: ALBUMIN 2.3 g/dL (3.4-5.0); ANION GAP 14.5 mmol/L (8-16); BILIRUBIN - TOTAL 0.42 mg/dL (0.2-1.3); C-REACTIVE PROTEIN 3.2 mg/dL (0.0-0.9); CALCIUM 7.8 mg/dL (8.5-10.1); CARBON DIOXIDE 23.3 mmol/L (21.0-32.0); CREATININE - SERUM 3.5 mg/dL (0.6-1.3); LYMPHOCYTES 9 % (15-50); MAGNESIUM - SERUM 2.5 mg/dL (1.8-2.4); MONOCYTES 4 % (2-11); NEUTROPHILS 87 % (40-80); PLATELET ESTIMATE NORMAL; POTASSIUM - SERUM 3.8 mmol/L (3.5-5.1); PROTEIN - SERUM 6.1 g/dL (6.4-8.2)
[2018-12-19 05:17] LABS: PHOSPHOROUS 5.8 mg/dL (2.5-4.9)
[2018-12-19 05:18] LABS: TROPONIN-I 24.122 ng/mL (0.000-0.060)
[2018-12-20] VITALS (30 sets, daily range): BP systolic 125–223; BP diastolic 66–135
[2018-12-20 05:23] LABS: BASOPHILS 0 % (0-2); EOSINOPHILS 0 % (0-7); HEMATOCRIT 37.1 % (42.0-54.0); HEMOGLOBIN 11.6 g/dL (13.5-17.5); IMMATURE GRANULOCYTES 0.6 % (0-5); LYMPHOCYTES 5.6 % (15-50); MCH 26.6 pg (26.0-34.0); MCHC 31.3 g/dL (31.0-37.0); MEAN PLATELET VOLUME 11.4 fL (7.4-10.4); MONOCYTES 4.2 % (2-11); NEUTROPHILS 89.6 % (40-80); PLATELET COUNT 123 10x3/uL (130-400); RBC 4.36 10x6/uL (4.20-6.10); RDW 16.4 % (11.5-14.5); WBC 8.9 10x3/uL (4.8-10.8)
[2018-12-20 05:24] LABS: MCV 85.1 fL (80.0-100.0)
[2018-12-20 06:39] LABS: ALBUMIN 2.4 g/dL (3.4-5.0); ANION GAP 15.7 mmol/L (8-16); BILIRUBIN - TOTAL 0.5 mg/dL (0.2-1.3); CALCIUM 7.8 mg/dL (8.5-10.1); CARBON DIOXIDE 23.3 mmol/L (21.0-32.0); CREATININE - SERUM 2.9 mg/dL (0.6-1.3); MAGNESIUM - SERUM 2.6 mg/dL (1.8-2.4); PHOSPHOROUS 5.5 mg/dL (2.5-4.9); PROTEIN - SERUM 6.2 g/dL (6.4-8.2)
--- NOTE | 2018-12-20 13:13 | CN ---
PATIENT NAME:CAROLINA MILLS MEDICAL RECORD: [id number] : 51 LOCATION:FORTUNATOD.2304 ADMIT DATE: 12/16/18 ACCOUNT: [id number] CONSULTING PHYSICIAN: BRUCE MILLS MD REFERRING PHYSICIAN: RENATE TONEY DO DATE OF CONSULTATION: 12/18/2018 HISTORY: A 63-year-old gentleman with known history of coronary artery disease, status post WA and stents in the past. This is as per chart as the patient is currently intubated. No family present. He has a history of obstructive pulmonary disease. He presented to the ER with chest pain and shortness of breath. He had rapid deterioration in clinical course, requiring intubation. He was found to have elevated cardiac enzymes as well as increased BNP. We are asked to see him concerning cardiovascular status. PAST MEDICAL HISTORY: Includes; 1. History of coronary artery disease. 2. Hypertension. HOME MEDICATIONS: Currently, include Plavix 75 daily, aspirin 81 daily, carvedilol 25 b.i.d., and Demerol 50 IM as needed. SOCIAL HISTORY: Unobtainable. REVIEW OF SYSTEMS: Unobtainable. PHYSICAL EXAMINATION: GENERAL: Sedated and intubated. HEENT: Normocephalic and atraumatic. NECK: No bruits noted. HEART: Regular. II/ systolic ejection murmur, heard best in primary cardiac area. LUNGS: Expiratory wheezes with decreased breath sounds. ABDOMEN: Soft and nontender. EXTREMITIES: Pulses 2+. No edema. IMPRESSION: Certainly could be type 2 WA with demand ischemia, although interpretation of cardiac enzymes in lieu of elevated creatinine is somewhat difficult. We will check echocardiographic study. Further recommendations based on above. TRANSINT:[id number] Voice Confirmation ID: [id number] DOCUMENT ID: [id number] BRUCE MILLS MD at 1313 CC: [id number] DICTATION DATE: 12/18/18 1303 SKIDDER OPERATOR: 12/18/181947 ADM IN [place] [id number] [place] [id number]
--- NOTE | 2018-12-20 13:13 | EC ---
PATIENT:CAROLINA MILLS DATE OF SERVICE: 12/16/18 SEX: M MEDICAL RECORD: [id number] DATE OF : 51 LOCATION:[facility] D230 AGE OF PATIENT: 63 ADMISSION DATE: 12/16/18 REFERRING PHYSICIAN: INTERPRETING PHYSICIAN: BRUCE MILLS MD ECHOCARDIOGRAM REPORT ECHO CHARGES 4 ECHO COMPLETE Date: 12/18/18 CLINICAL DIAGNOSIS: CHF ECHOCARDIOGRAPHIC MEASUREMENTS (adult normal given) AC root (d.<3.7cm) 3.3 cm LV Septum d (<1.2 cm> 1.3 cm Valve Excursion 1.8 cm LV Septum (systole) 1.8 cm Left Atria (s.<4.0cm> 4.5 cm LVPW d(<1.2cm) 1.3 cm RV (d.<2.3cm) 2.4 cm LVPW (sytole) 1.7 cm LV diastole(<5.6CM) 5.9 cm MV E-F(>70mm/sec) cm LV systole 4.6 cm LVOT Diameter 1.9 cm MV exc.(>10mm) cm Est.ejection fraction (50-75%) % DOPPLER: LVIT cm/sec A 98.0 cm/sec E 89.0 cm/sec LA cm/sec RVSP 40.3 mmHg LVOT 75.0 cm/sec AOP1/2T m/s Asc. Ao 132 cm/sec RVOT 76.0 cm/sec RA cm/sec PA 97.0 cm/sec AV Gradient Peak 6.9 mmHg AV Mean 3.3 mmHg AV Area 1.9 cm MV Gradient Peak 3.4 mmHg MV Mean 1.6 mmHg MV Area cm COMMENTS: Looseleaf Binder Coverer: 1 ALETA CROWOE Professional Driver: 3 Dr. Hood TAPE# PACS Pericardial Effusion N DATE OF SERVICE: Adequate 2D, color flow, spectral Doppler, and M-Mode. LVH is present. LV internal dimensions are mildly dilated. LV is globally hypokinetic with reduced EF, estimated EF 25%. Aortic valve sclerosis with no evidence of stenosis by Doppler interrogation. Left atrium is dilated at 4.5 cm. Mitral valve is thickened with mitral annular calcification. Moderate MR. right-sided chambers grossly normal. Mild TR. TRANSINT:[id number] Voice Confirmation ID: [id number] DOCUMENT ID: [id number] ECHOCARDIOGRAM REPORT [id number] CAROLINA MILLS,BRUCE Alcazar MD at 1313 CC: [id number] DICTATION DATE: 12/19/18 1215 PASTRY CHEF: 12/19/18 1307 ADM IN [place] [id number] [place] [id number]
[2018-12-21] VITALS (24 sets, daily range): BP systolic 124–155; BP diastolic 64–101
[2018-12-21 06:55] LABS: ALBUMIN 2.5 g/dL (3.4-5.0); ANION GAP 15.6 mmol/L (8-16); BILIRUBIN - TOTAL 0.67 mg/dL (0.2-1.3); CALCIUM 7.9 mg/dL (8.5-10.1); CARBON DIOXIDE 24.2 mmol/L (21.0-32.0); POTASSIUM - SERUM 3.8 mmol/L (3.5-5.1); PROTEIN - SERUM 6.4 g/dL (6.4-8.2)
[2018-12-21 06:57] LABS: TROPONIN-I 16.219 ng/mL (0.000-0.060)
[2018-12-21 07:23] LABS: BASOPHILS 0 % (0-2); EOSINOPHILS 0 % (0-7); HEMATOCRIT 38.3 % (42.0-54.0); HEMOGLOBIN 12.5 g/dL (13.5-17.5); IMMATURE GRANULOCYTES 1.6 % (0-5); LYMPHOCYTES 9.6 % (15-50); MCH 27.3 pg (26.0-34.0); MCHC 32.6 g/dL (31.0-37.0); MCV 83.6 fL (80.0-100.0); MEAN PLATELET VOLUME 11.9 fL (7.4-10.4); MONOCYTES 7.3 % (2-11); NEUTROPHILS 81.5 % (40-80); PLATELET COUNT 121 10x3/uL (130-400); RBC 4.58 10x6/uL (4.20-6.10); RDW 16.4 % (11.5-14.5); WBC 8.7 10x3/uL (4.8-10.8)
[2018-12-22] VITALS (24 sets, daily range): BP systolic 112–165; BP diastolic 62–98
[2018-12-22 04:34] LABS: BASOPHILS 0.1 % (0-2); EOSINOPHILS 0 % (0-7); HEMATOCRIT 36.6 % (42.0-54.0); IMMATURE GRANULOCYTES 2.5 % (0-5); LYMPHOCYTES 7.8 % (15-50); MCH 26.8 pg (26.0-34.0); MCHC 32.8 g/dL (31.0-37.0); MCV 81.9 fL (80.0-100.0); MEAN PLATELET VOLUME 11.4 fL (7.4-10.4); NEUTROPHILS 82.6 % (40-80); PLATELET COUNT 126 10x3/uL (130-400); RBC 4.47 10x6/uL (4.20-6.10); RDW 16.1 % (11.5-14.5)
[2018-12-22 04:35] LABS: WBC 11.5 10x3/uL (4.8-10.8)
[2018-12-22 05:09] LABS: ALBUMIN 2.2 g/dL (3.4-5.0); ANION GAP 14.3 mmol/L (8-16); BILIRUBIN - TOTAL 0.62 mg/dL (0.2-1.3); CALCIUM 7.8 mg/dL (8.5-10.1); CARBON DIOXIDE 26.8 mmol/L (21.0-32.0); CREATININE - SERUM 2.9 mg/dL (0.6-1.3); MAGNESIUM - SERUM 2.5 mg/dL (1.8-2.4); PHOSPHOROUS 5.5 mg/dL (2.5-4.9); POTASSIUM - SERUM 4.1 mmol/L (3.5-5.1); PROTEIN - SERUM 5.9 g/dL (6.4-8.2)
[2018-12-22 05:11] LABS: TROPONIN-I 18.685 ng/mL (0.000-0.060)
[2018-12-22 16:35] LABS: BASOPHILS 0.2 % (0-2); EOSINOPHILS 0.1 % (0-7); HEMATOCRIT 37.1 % (42.0-54.0); IMMATURE GRANULOCYTES 2.3 % (0-5); LYMPHOCYTES 6.3 % (15-50); MCHC 32.3 g/dL (31.0-37.0); MCV 83.4 fL (80.0-100.0); MEAN PLATELET VOLUME 11.5 fL (7.4-10.4); MONOCYTES 5.5 % (2-11); NEUTROPHILS 85.6 % (40-80); PLATELET COUNT 122 10x3/uL (130-400); RBC 4.45 10x6/uL (4.20-6.10); RDW 16.1 % (11.5-14.5); WBC 11.5 10x3/uL (4.8-10.8)
[2018-12-22 16:43] LABS: ANION GAP 14.8 mmol/L (8-16); CALCIUM 8.1 mg/dL (8.5-10.1); CARBON DIOXIDE 27.7 mmol/L (21.0-32.0); CREATININE - SERUM 2.8 mg/dL (0.6-1.3); POTASSIUM - SERUM 4.5 mmol/L (3.5-5.1)
[2018-12-23] VITALS (26 sets, daily range): BP systolic 111–173; BP diastolic 59–97
[2018-12-23 04:45] LABS: BASOPHILS 0.2 % (0-2); EOSINOPHILS 0 % (0-7); HEMATOCRIT 36.6 % (42.0-54.0); HEMOGLOBIN 11.6 g/dL (13.5-17.5); IMMATURE GRANULOCYTES 3.9 % (0-5); LYMPHOCYTES 6.7 % (15-50); MCH 26.6 pg (26.0-34.0); MCHC 31.7 g/dL (31.0-37.0); MCV 83.9 fL (80.0-100.0); MEAN PLATELET VOLUME 11.2 fL (7.4-10.4); MONOCYTES 8.3 % (2-11); NEUTROPHILS 80.9 % (40-80); PLATELET COUNT 122 10x3/uL (130-400); RBC 4.36 10x6/uL (4.20-6.10); RDW 16.1 % (11.5-14.5); WBC 12.5 10x3/uL (4.8-10.8)
[2018-12-23 05:21] LABS: ANION GAP 12.5 mmol/L (8-16); CALCIUM 8.3 mg/dL (8.5-10.1); CARBON DIOXIDE 29.1 mmol/L (21.0-32.0); CREATININE - SERUM 2.7 mg/dL (0.6-1.3); PHOSPHOROUS 5.4 mg/dL (2.5-4.9); POTASSIUM - SERUM 4.6 mmol/L (3.5-5.1)
[2018-12-23 05:22] LABS: TROPONIN-I 9.38 ng/mL (0.000-0.060)
--- NOTE | 2018-12-23 15:08 | CN ---
PATIENT NAME:CAROLINA MILLS MEDICAL RECORD: [id number] : 51 LOCATION:BeauICUD.2304 ADMIT DATE: 12/16/18 ACCOUNT: [id number] CONSULTING PHYSICIAN: ML WHEAT MD REFERRING PHYSICIAN: RENATE TONEY DO DATE OF CONSULTATION: 12/17/2018 CONSULT REQUESTING PHYSICIAN: Renate Toney DO REASON FOR CONSULTATION: Vent management status post cardiopulmonary arrest. HISTORY OF PRESENT ILLNESS: Mr. Mills is a 63-year-old gentleman who came into the ER with respiratory distress. The patient coded and the patient was electively intubated. Now, the patient is orally intubated. The history was taken by reviewing the patient's note and talking to the nursing staff. The patient does have a history of COPD, hepatitis and CAD. REVIEW OF SYSTEMS: As in history of present illness. PAST MEDICAL HISTORY: 1. COPD. 2. Hepatitis. 3. BPH. 4. History of coronary artery disease. 5. Diabetes mellitus. 6. Hypertension. PAST SURGICAL HISTORY: He has a quadruple bypass in 2005. ALLERGIES: HE IS ALLERGIC TO CODEINE AND MORPHINE. MEDICATIONS: On [employer] is reviewed. PERSONAL AND SOCIAL HISTORY: The patient is a nondrinker. The smoking history is unknown. FAMILY HISTORY: Significant for hypertension, neurological disorder. PHYSICAL EXAMINATION: GENERAL: Now, the patient is orally intubated and sedated. VITAL SIGNS: The blood pressure is 127/81, pulse is 88, respiration is 20, temperature 97.9, and SpO2 is 95% on 30% assist control mechanical ventilation and a PEEP of 10. HEENT: Conjunctivae are pink. Sclerae are not icteric. NECK: Supple, no JVD. CHEST: The chest excursion is minimal on both sides. There are bilateral crackles. No wheezing. HEART: Rhythm regular, normal sound, no murmur. ABDOMEN: Soft, bowel sounds present. No hepatosplenomegaly. RECTAL: Deferred. EXTREMITIES: No cyanosis, no clubbing, no pedal edema. CENTRAL NERVOUS SYSTEM: The patient is orally intubated and sedated. There are no obvious cranial nerve abnormality. LABORATORY DATA: CBC: the WBC is 9.4, hemoglobin 14, hematocrit 42.7, the CONSULT REPORT [id number] CAROLINA MILLS platelet count 117. Chemistry: Sodium 137, potassium is 3.7, BUN is 30, creatinine 3.1. ABG: The pH on admission was 7.1, pCO2 was 73.1, the pO2 was 100, bicarbonate 23.5 The repeat ABG this morning; the pH is 7.46, pCO2 is 33.5, the pO2 is 156. The bicarbonate is 24.2. Chemistry; the troponin is 0.09. The proBNP is 20,685. IMPRESSION: 1. Status post cardiopulmonary arrest. 2. Acute hypoxic hypercapnic respiratory failure. 3. Respiratory acidosis secondary to above. 4. Pulmonary edema. 5. Nxtwr-pd-kxoulep systolic congestive heart failure. 6. Acute exacerbation of chronic obstructive pulmonary disease. 7. Elevated cardiac enzyme. 8. Acute kidney injury, chronic kidney disease. RECOMMENDATION: 1. Continue mechanical ventilation, adjust the setting. 2. DuoNeb nebulizer. 3. Brovana, budesonide nebulizer. 4. Lasix per cardiology and nephrology. 5. DVT and GI bleed prophylaxis. 6. I will start him on empiric Zosyn. 7. Follow up labs and chest radiograph. Discussed with RN and RT. Dr. Toney, thank you for involving me in the care of Mr. Mills. TRANSINT:[id number] Voice Confirmation ID: [id number] DOCUMENT ID: [id number] ML WHEAT MD at 1508 CC: [id number] DICTATION DATE: 12/17/18 1107 RENTAL COORDINATOR: 12/17/18 1316 ADM IN [place] [id number] [place] [address]
--- NOTE | 2018-12-23 16:51 | MORECARE ---
CASE MANAGEMENT DISCHARGE SUMMARY PATIENT: CAROLINA MILLS UNIT: [id number] ADM DATE: 12/16/18 AGE: 63 : 53 SEX: M ROOM/BED: D.2304 AUTHOR: RADHA,DOC PHYSICIAN: REFERRING PHYSICIAN: RENATE TONEY DO DATE OF SERVICE: 12/23/18 Discharge Plan Patient Name: CAROLINA MILLS Facility: [facility]:[place] : 1955 Planned Disposition: Anticipated Discharge Date: Discharge Date: Expected LOS: Initial Reviewer: [email or web address] Initial Review Date: 12/22/2018 Generated: 12/23/18 5:51 pm Comments DCP- Discharge Planning Updated by [email or web address]: Tia Ross on 12/21/18 3:[address] Late Entry 12/20/18 @ 1535 CM attempted to visit with patient regarding discharge planning/ needs. Patient currently on vent no family available. CM will continue to follow and assist as needed with discharge planning / needs DCP- Discharge Planning Updated by [email or web address]: Tia Ross on 12/21/18 3:[address] Late Entry 12/19/18 0945 CM attempted to visit with patient regarding discharge planning/ needs. Patient currently on vent no family available. CM will continue to follow and assist as needed with discharge planning / needs DCPIA - Discharge Planning Initial Assessment Updated by [email or web address]: Tia Ross on 12/23/18 4:46 pm * Is the patient Alert and Oriented? No * How many steps to enter\exit or inside your home? * PCP [place] [facility] - [place] * [place]acy [place] * Preadmission Environment Home Alone * ADLs Independent * Other Equipment CANE, WALKER, WHEELCHAIR * List name and contact numbers for known caregivers / representatives who currently or will assist patient after discharge: MATTHEW HARRELL - SISTER - [phone] KIM MCCOY - LIFE PARTNER - [phone] * Verbal permission to speak to the caregivers and representatives has been obtained from the patient. N/A * Community resources currently utilized None * Additional services required to return to the preadmission environment? No * Can the patient safely return to the preadmission environment? Yes * Has this patient been hospitalized within the prior 30 days at any hospital? Yes Patient Name: CAROLINA MILLS Page [id number] at 1651 All edits/amendments must be made on the electronic document DICTATION DATE: 12/23/181650 WEAPONS SPECIALIST: FRANCES 12/23/181650 RPT#: [id number] DC DATE: STATUS: ADM IN [facility] [address] [place] [address] END OF REPORT
--- NOTE | 2018-12-23 16:59 | MORECARE ---
CASE MANAGEMENT DISCHARGE SUMMARY PATIENT: CAROLINA MILLS RAY UNIT: [id number] ADM DATE: 12/16/18 AGE: 63 : 53 SEX: M ROOM/BED: D.2304 AUTHOR: RADHA,DOC PHYSICIAN: REFERRING PHYSICIAN: RENATE TONEY DO DATE OF SERVICE: 12/23/18 Discharge Plan Patient Name: CAROLINA MILLS Facility: [facility]:[place] : 1955 Planned Disposition: Anticipated Discharge Date: Discharge Date: Expected LOS: Initial Reviewer: [email or web address] Initial Review Date: 12/22/2018 Generated: 12/23/18 5:59 pm Comments DCP- Discharge Planning Updated by [email or web address]: Tia Ross on 12/23/18 3:[address] Late Entry 12/22/18 @ 1215 Patient Name: CAROLINA MILLS Admission Status: ER Accout number: [id number] Admission Date: 12-16-2018 : 1955 Admission Diagnosis:ACUTE RESPIRATORY FAILURE WITH HYPOXIA Attending: RENATE TONEY Current LOS: 7 Anticipated DC Date: Planned Disposition: Primary Insurance: [employer] Discharge Planning Comments: CM met with patients life partner Kim Painter patient is currently still on vent. Kim stated the patient lives alone and that he was recently in hospital then went to [facility] for Rehab. She states he has only been home for 2 weeks. Uncertain as to what his disposition will be upon discharge. Daughter doesn't want him to have trach d/t patients being noncompliant with his medical care. Patient may need walk test if home 02 is needed upon discharge. CM will continue to follow and assist as needed with discharge planning / needs. Ranch Rider: Tia Ross DCP- Discharge Planning Updated by [email or web address]: Tia Ross on 12/21/18 3:[address] Late Entry 12/20/18 @ 1535 CM attempted to visit with patient regarding discharge planning/ needs. Patient currently on vent no family available. CM will continue to follow and assist as needed with discharge planning / needs DCP- Discharge Planning Updated by [email or web address]: Tia Ross on 12/21/18 3:[address] Late Entry 12/19/18 0932 CM attempted to visit with patient regarding discharge planning/ needs. Patient currently on vent no family available. CM will continue to follow and assist as needed with discharge planning / needs DCPIA - Discharge Planning Initial Assessment Updated by [email or web address]: Tia Ross on 12/23/18 4:46 pm * Is the patient Alert and Oriented? No * How many steps to enter\exit or inside your home? * PCP [place] [facility] - * [place] * Preadmission Environment Home Alone * ADLs Independent * Other Equipment CANE, WALKER, WHEELCHAIR * List name and contact numbers for known caregivers / representatives who currently or will assist patient after discharge: MATTHEW HARRELL - SISTER - [phone] KIM PAINTER - LIFE PARTNER - [phone] * Verbal permission to speak to the caregivers and representatives has been obtained from the patient. N/A * Community resources currently utilized None * Additional services required to return to the preadmission environment? No * Can the patient safely return to the preadmission environment? Yes * Has this patient been hospitalized within the prior 30 days at any hospital? Yes Last DP export: 12/23/18 3:51 p Patient Name: CAROLINA MILLS Page 36491 at 1659 All edits/amendments must be made on the electronic document DICTATION DATE: 12/23/181657 LASER SPECIALIST: FRANCES 12/23/181657 RPT#: [id number] DC DATE: STATUS: ADM IN [facility] [address] [place] [address] END OF REPORT
[2018-12-24] VITALS (24 sets, daily range): BP systolic 102–164; BP diastolic 56–93
[2018-12-24 05:37] LABS: BASOPHILS 0.1 % (0-2); EOSINOPHILS 0 % (0-7); HEMATOCRIT 35.7 % (42.0-54.0); HEMOGLOBIN 11.2 g/dL (13.5-17.5); IMMATURE GRANULOCYTES 2.1 % (0-5); LYMPHOCYTES 11.3 % (15-50); MCH 26.8 pg (26.0-34.0); MCHC 31.4 g/dL (31.0-37.0); MCV 85.4 fL (80.0-100.0); MEAN PLATELET VOLUME 11.4 fL (7.4-10.4); MONOCYTES 9.9 % (2-11); NEUTROPHILS 76.6 % (40-80); PLATELET COUNT 118 10x3/uL (130-400); RBC 4.18 10x6/uL (4.20-6.10); RDW 16.2 % (11.5-14.5); WBC 9.6 10x3/uL (4.8-10.8)
[2018-12-24 06:10] LABS: ANION GAP 15.8 mmol/L (8-16); CALCIUM 8.4 mg/dL (8.5-10.1); CARBON DIOXIDE 25.7 mmol/L (21.0-32.0); CREATININE - SERUM 2.7 mg/dL (0.6-1.3); MAGNESIUM - SERUM 2.7 mg/dL (1.8-2.4); PHOSPHOROUS 6.5 mg/dL (2.5-4.9); POTASSIUM - SERUM 4.5 mmol/L (3.5-5.1)
[2018-12-25] VITALS (25 sets, daily range): BP systolic 130–1152; BP diastolic 71–98
[2018-12-25 05:17] LABS: BASOPHILS 0.1 % (0-2); EOSINOPHILS 0.2 % (0-7); HEMATOCRIT 34.6 % (42.0-54.0); HEMOGLOBIN 10.8 g/dL (13.5-17.5); IMMATURE GRANULOCYTES 1.6 % (0-5); LYMPHOCYTES 8.2 % (15-50); MCH 26.5 pg (26.0-34.0); MCHC 31.2 g/dL (31.0-37.0); MEAN PLATELET VOLUME 10.8 fL (7.4-10.4); MONOCYTES 5.9 % (2-11); PLATELET COUNT 115 10x3/uL (130-400); RBC 4.07 10x6/uL (4.20-6.10); RDW 15.8 % (11.5-14.5); WBC 9.1 10x3/uL (4.8-10.8)
[2018-12-25 05:37] LABS: ANION GAP 13.8 mmol/L (8-16); CALCIUM 8.2 mg/dL (8.5-10.1); CARBON DIOXIDE 26.7 mmol/L (21.0-32.0); CREATININE - SERUM 2.7 mg/dL (0.6-1.3); POTASSIUM - SERUM 4.5 mmol/L (3.5-5.1)
[2018-12-25 05:39] LABS: PHOSPHOROUS 3.9 mg/dL (2.5-4.9)
[2018-12-26] VITALS (23 sets, daily range): BP systolic 131–168; BP diastolic 79–99
[2018-12-26 05:09] LABS: BASOPHILS 0 % (0-2); EOSINOPHILS 0.1 % (0-7); HEMATOCRIT 33.5 % (42.0-54.0); HEMOGLOBIN 10.8 g/dL (13.5-17.5); IMMATURE GRANULOCYTES 2.4 % (0-5); LYMPHOCYTES 7.2 % (15-50); MCHC 32.2 g/dL (31.0-37.0); MCV 83.8 fL (80.0-100.0); MEAN PLATELET VOLUME 11.7 fL (7.4-10.4); MONOCYTES 4.6 % (2-11); NEUTROPHILS 85.7 % (40-80); PLATELET COUNT 124 10x3/uL (130-400); RDW 15.4 % (11.5-14.5); WBC 10.5 10x3/uL (4.8-10.8)
[2018-12-26 05:17] LABS: ANION GAP 13.2 mmol/L (8-16); CALCIUM 7.8 mg/dL (8.5-10.1); CARBON DIOXIDE 25.5 mmol/L (21.0-32.0); PHOSPHOROUS 3.6 mg/dL (2.5-4.9); POTASSIUM - SERUM 4.7 mmol/L (3.5-5.1)
[2018-12-27] VITALS (17 sets, daily range): BP systolic 118–161; BP diastolic 60–101
[2018-12-27 06:17] LABS: BASOPHILS 0.1 % (0-2); EOSINOPHILS 0 % (0-7); HEMATOCRIT 34.8 % (42.0-54.0); HEMOGLOBIN 11.2 g/dL (13.5-17.5); IMMATURE GRANULOCYTES 1.4 % (0-5); LYMPHOCYTES 7.3 % (15-50); MCH 26.5 pg (26.0-34.0); MCHC 32.2 g/dL (31.0-37.0); MCV 82.5 fL (80.0-100.0); MEAN PLATELET VOLUME 10.9 fL (7.4-10.4); MONOCYTES 5.6 % (2-11); NEUTROPHILS 85.6 % (40-80); PLATELET COUNT 117 10x3/uL (130-400); RBC 4.22 10x6/uL (4.20-6.10); RDW 15.3 % (11.5-14.5)
[2018-12-27 06:20] LABS: ANION GAP 11.6 mmol/L (8-16); CALCIUM 8.3 mg/dL (8.5-10.1); CARBON DIOXIDE 28.2 mmol/L (21.0-32.0); CREATININE - SERUM 1.8 mg/dL (0.6-1.3); MAGNESIUM - SERUM 2.2 mg/dL (1.8-2.4); POTASSIUM - SERUM 4.8 mmol/L (3.5-5.1)
[2018-12-27 06:24] LABS: PHOSPHOROUS 4.8 mg/dL (2.5-4.9)
[2018-12-28] VITALS (7 sets, daily range): BP systolic 100–171; BP diastolic 78–97
--- NOTE | 2018-12-28 12:17 | MORECARE ---
CASE MANAGEMENT DISCHARGE SUMMARY PATIENT: CAROLINA MILLS UNIT: [id number] ADM DATE: 12/16/18 AGE: 63 : 53 SEX: M ROOM/BED: D.6553 AUTHOR: RADHA,DOC PHYSICIAN: REFERRING PHYSICIAN: RENATE TONEY DO DATE OF SERVICE: 12/28/18 Discharge Plan Patient Name: CAROLINA MILLS Facility: [facility]:[place] : 1955 Planned Disposition: Anticipated Discharge Date: Discharge Date: Expected LOS: Initial Reviewer: [email or web address] Initial Review Date: 12/22/2018 Generated: 12/28/18 1:16 pm Comments DCP- Discharge Planning Updated by [email or web address]: Sadie Deleon on 12/28/18 11:[address] PER ICU CM NOTE, [facility]QUEST[facility] CALL [facility] AFTER PATIENT EXTUBATED. PT EXTUBATED ON 12/26 AND NO NOTE STATING THEY WERE CALLED BACK. PATIENT IS STILL REQUESTING A TRANSFER TO [place]. CALLED THE [facility] EXPIDATION LINE ([phone]), AND SPOKE TO ALONA. INFORMATION WAS UPDATED. SHE STATED SHE WOULD HAVE SCREENER CALL FOR CLINICALS. ONCE INFORMATION RECEIVED, WILL SEND CLINICALS. CURRENTLY BED NOT AVAILABLE, THEY WILL CALL IF MD ACCEPTS AND BED AVAILABLE. WILL KEEP THEM UPDATED AND THE CLINICAL COORDINATOR. DCP- Discharge Planning Updated by [email or web address]: Tia Ross on 12/23/18 3:[address] Late Entry 12/22/18 @ 1215 Patient Name: CAROLINA MILLS Admission Status: ER Accout number: [id number] Admission Date: 12-16-2018 : 1955 Admission Diagnosis:ACUTE RESPIRATORY FAILURE WITH HYPOXIA Attending: RENATE TONEY Current LOS: 7 Anticipated DC Date: Planned Disposition: Primary Insurance: [employer] Discharge Planning Comments: CM met with patients life partner Kim Painter patient is currently still on vent. Kim stated the patient lives alone and that he was recently in hospital then went to [facility] for Rehab. She states he has only been home for 2 weeks. Uncertain as to what his disposition will be upon discharge. Daughter doesn't want him to have trach d/t patients being noncompliant with his medical care. Patient may need walk test if home 02 is needed upon discharge. CM will continue to follow and assist as needed with discharge planning / needs. Edge Inker Heels: Tia Ross DCP- Discharge Planning Updated by [email or web address]: Tia Ross on 12/21/18 3:[address] Late Entry 12/20/18 @ 1535 CM attempted to visit with patient regarding discharge planning/ needs. Patient currently on vent no family available. CM will continue to follow and assist as needed with discharge planning / needs DCP- Discharge Planning Updated by [email or web address]: Tia Ross on 12/21/18 3:[address] Late Entry 12/19/18 0945 CM attempted to visit with patient regarding discharge planning/ needs. Patient currently on vent no family available. CM will continue to follow and assist as needed with discharge planning / needs DCPIA - Discharge Planning Initial Assessment Updated by [email or web address]: Tia Ross on 12/23/18 4:46 pm * Is the patient Alert and Oriented? No * How many steps to enter\exit or inside your home? * PCP [place] [facility] - * [place] * Preadmission Environment Home Alone * ADLs Independent * Other Equipment CANE, WALKER, WHEELCHAIR * List name and contact numbers for known caregivers / representatives who currently or will assist patient after discharge: MATTHEW HARRELL - SISTER - [phone] KIM PAINTER LIFE PARTNER - [phone] * Verbal permission to speak to the caregivers and representatives has been obtained from the patient. N/A * Community resources currently utilized None * Additional services required to return to the preadmission environment? No * Can the patient safely return to the preadmission environment? Yes * Has this patient been hospitalized within the prior 30 days at any hospital? Yes Last DP export: 12/23/18 3:59 p Patient Name: CAROLINA MILLS Page [id number] at 1217 All edits/amendments must be made on the electronic document DICTATION DATE: 12/28/18 1216 SENIOR LINUX ADMINISTRATOR: FRANCES 12/28/186 RPT#: [id number] DC DATE: STATUS: ADM IN [facility] [address] [place] [address] END OF REPORT
[2018-12-28 13:16] LABS: BASOPHILS 0.1 % (0-2); EOSINOPHILS 0.2 % (0-7); HEMATOCRIT 35.8 % (42.0-54.0); HEMOGLOBIN 11.7 g/dL (13.5-17.5); IMMATURE GRANULOCYTES 1.2 % (0-5); LYMPHOCYTES 11.6 % (15-50); MCH 27.4 pg (26.0-34.0); MCHC 32.7 g/dL (31.0-37.0); MCV 83.8 fL (80.0-100.0); MEAN PLATELET VOLUME 11.3 fL (7.4-10.4); MONOCYTES 8.3 % (2-11); NEUTROPHILS 78.6 % (40-80); PLATELET COUNT 126 10x3/uL (130-400); RBC 4.27 10x6/uL (4.20-6.10); RDW 15.6 % (11.5-14.5); WBC 12.6 10x3/uL (4.8-10.8)
[2018-12-28 13:37] LABS: ALBUMIN 2.2 g/dL (3.4-5.0); ANION GAP 11.2 mmol/L (8-16); BILIRUBIN - TOTAL 0.79 mg/dL (0.2-1.3); CALCIUM 8.3 mg/dL (8.5-10.1); CARBON DIOXIDE 28.1 mmol/L (21.0-32.0); CREATININE - SERUM 1.8 mg/dL (0.6-1.3); POTASSIUM - SERUM 4.3 mmol/L (3.5-5.1); PROTEIN - SERUM 5.6 g/dL (6.4-8.2)
--- NOTE | 2018-12-28 14:04 | MORECARE ---
CASE MANAGEMENT DISCHARGE SUMMARY PATIENT: CAROLINA MILLS UNIT: [id number] ADM DATE: 12/16/18 AGE: 63 : 53 SEX: M ROOM/BED: D.8858 AUTHOR: RADHA,DOC PHYSICIAN: REFERRING PHYSICIAN: RENATE TONEY DO DATE OF SERVICE: 12/28/18 Discharge Plan Patient Name: CAROLINA MILLS Facility: [facility]:[place] : 1955 Planned Disposition: VA facility Anticipated Discharge Date: Discharge Date: Expected LOS: Initial Reviewer: [email or web address] Initial Review Date: 12/22/2018 Generated: 12/28/18 3:03 pm Comments DCP- Discharge Planning Updated by [email or web address]: Sadie Deleon on 12/28/18 11:[address] PER ICU CM NOTE, [facility] EXP[facility] REQUESTED A CALL BACK AFTER PATIENT EXTUBATED. PT EXTUBATED ON 12/26 AND NO NOTE STATING THEY WERE CALLED BACK. PATIENT IS STILL REQUESTING A TRANSFER TO [place]. CALLED THE VA EXPIDATION LINE ([phone]), AND SPOKE TO ALONA. INFORMATION WAS UPDATED. SHE STATED SHE WOULD HAVE SCREENER CALL FOR CLINICALS. ONCE INFORMATION RECEIVED, WILL SEND CLINICALS. CURRENTLY BED NOT AVAILABLE, THEY WILL CALL IF MD ACCEPTS AND BED AVAILABLE. WILL KEEP THEM UPDATED AND THE CLINICAL COORDINATOR. DCP- Discharge Planning Updated by [email or web address]: Tia Ross on 12/23/18 3:[address] Late Entry 12/22/18 @ 1215 Patient Name: CAROLINA MILLS Admission Status: ER Accout number: [id number] Admission Date: 12-16-2018 : 1955 Admission Diagnosis:ACUTE RESPIRATORY FAILURE WITH HYPOXIA Attending: RENATE TONEY Current LOS: 7 Anticipated DC Date: Planned Disposition: Primary Insurance: [employer] Discharge Planning Comments: CM met with patients life partner Kim Painter patient is currently still on vent. Kim stated the patient lives alone and that he was recently in hospital then went to [facility] for Rehab. She states he has only been home for 2 weeks. Uncertain as to what his disposition will be upon discharge. Daughter doesn't want him to have trach d/t patients being noncompliant with his medical care. Patient may need walk test if home 02 is needed upon discharge. CM will continue to follow and assist as needed with discharge planning / needs. Separator Inserter: Tia Ross DCP- Discharge Planning Updated by [email or web address]: Tia Ross on 12/21/18 3:[address] Late Entry 12/20/18 @ 1535 CM attempted to visit with patient regarding discharge planning/ needs. Patient currently on vent no family available. CM will continue to follow and assist as needed with discharge planning / needs DCP- Discharge Planning Updated by [email or web address]: Tia Ross on 12/21/18 3:[address] Late Entry 12/19/18 0945 CM attempted to visit with patient regarding discharge planning/ needs. Patient currently on vent no family available. CM will continue to follow and assist as needed with discharge planning / needs DCPIA - Discharge Planning Initial Assessment Updated by [email or web address]: Tia Ross on 12/23/18 4:46 pm * Is the patient Alert and Oriented? No * How many steps to enter\exit or inside your home? * PCP [place] [facility] - * [place]acy [place] * Preadmission Environment Home Alone * ADLs Independent * Other Equipment CANE, WALKER, WHEELCHAIR * List name and contact numbers for known caregivers / representatives who currently or will assist patient after discharge: MATTHEW HARRELL - SISTER - [phone] KIM PAINTER LIFE PARTNER - [phone] * Verbal permission to speak to the caregivers and representatives has been obtained from the patient. N/A * Community resources currently utilized None * Additional services required to return to the preadmission environment? No * Can the patient safely return to the preadmission environment? Yes * Has this patient been hospitalized within the prior 30 days at any hospital? Yes Last DP export: 12/28/18 11:16 a Patient Name: CAROLINA MILLS Page [id number] at 1404 All edits/amendments must be made on the electronic document DICTATION DATE: 12/28/181402 [facility] CONSULTANT: FRANCES 12/28/181402 RPT#: [id number] DC DATE: STATUS: ADM IN [facility] [address] [place] [address] END OF REPORT
--- NOTE | 2018-12-28 14:21 | MORECARE ---
CASE MANAGEMENT DISCHARGE SUMMARY PATIENT: CAROLINA MILLS UNIT: [id number] ADM DATE: 12/16/18 AGE: 63 : [birth year] SEX: M ROOM/BED: D.[facility] AUTHOR: RADHA,DOC PHYSICIAN: REFERRING PHYSICIAN: RENATE TONEY DO DATE OF SERVICE: 12/28/18 Discharge Plan Patient Name: CAROLINA MILLS Facility: [facility]:[place] : 1955 Planned Disposition: [place] facility Anticipated Discharge Date: Discharge Date: Expected LOS: Initial Reviewer: [id number] Initial Review Date: 12/22/2018 Generated: 12/28/18 3:21 pm Comments DCP- Discharge Planning Updated by [id number]: Brendon Hahn on 12/28/18 1:[address] Patient Name: CAROLINA MILLS Encounter No: [id number] : 1955 Primary Insurance: [employer] ADMINISTRATION Anticipated DC Date: Planned Disposition: [place] facility External Planned Provider: [facility] OR CUSTODIAL DCP follow-up note: CM SPOKE TO PT IN ROOM REGARDING DISCHARGE PLANNING AND NEEDS. PT STATES HE WANTS TRANSFER TO [place] AND IF NEEDING REHAB, TO CUSTODIAL AT [facility] IN [place]. PT PROVIDES VERBAL CONSENT TO DISCUSS HIS CARE AND TREATMENT WITH HIS SIGNIFICANT OTHER, KIM PAINTER. RN ÁNGEL SCHUSTER NOTIFIED WHO CONTACTED [place] EXPEDITOR, PT STILL ON TRANSFER LIST, [place] UPDATED ON PT'S CURRENT CONDITION AND TREATMENT, CLINICALS FAXED. CM CALLED [facility], , LEFT MESSAGE FOR SADIE GARCIA REQUESTING [place]UST[place]IAL CARE FOR PT AT [place] [facility]. PT IS ON THE [place] TRANSFER LIST. CM WAITING [place] BED AVAILABILITY. CM WAITING RETURN CALL FROM [facility] REGARDING POSSIBILITY OF [place]UST[place]IAL CARE AT [place] [facility]. Brendon Hahn, CASE MANAGEMENT DCP- Discharge Planning Updated by [email or web address]: Sadie Schuster on 12/28/18 11:[address] PER ICU CM NOTE, [place] EXPEDITOR REQUESTED A CALL BACK AFTER PATIENT EXTUBATED. PT EXTUBATED ON 12/26 AND NO NOTE STATING THEY WERE CALLED BACK. PATIENT IS STILL REQUESTING A TRANSFER TO [place]. CALLED THE [place] EXPIDATION LINE ([phone]), AND SPOKE TO ALONA. INFORMATION WAS UPDATED. SHE STATED SHE WOULD HAVE SCREENER CALL FOR CLINICALS. ONCE INFORMATION RECEIVED, WILL SEND CLINICALS. CURRENTLY BED NOT AVAILABLE, THEY WILL CALL IF MD ACCEPTS AND BED AVAILABLE. WILL KEEP THEM UPDATED AND THE CLINICAL COORDINATOR. DCP- Discharge Planning Updated by [id number]: Tia Ross on 12/23/18 3:[address] Late Entry 12/22/18 @ 1215 Patient Name: CAROLINA MILLS Admission Status: ER Accout number: [id number] Admission Date: 12-16-2018 : 1955 Admission Diagnosis:ACUTE RESPIRATORY FAILURE WITH HYPOXIA Attending: RENATE TONEY Current LOS: 7 Anticipated DC Date: Planned Disposition: Primary Insurance: [facility] ADMINISTRATION Discharge Planning Comments: CM met with patients life partner Kim Painter patient is currently still on vent. Kim stated the patient lives alone and that he was recently in hospital then went to [facility] for Rehab. She states he has only been home for 2 weeks. Uncertain as to what his disposition will be upon discharge. Daughter doesn't want him to have trach d/t patients being noncompliant with his medical care. Patient may need walk test if home 02 is needed upon discharge. CM will continue to follow and assist as needed with discharge planning / needs. Doorperson: Tia Ross DCP- Discharge Planning Updated by [id number]: Tia Ross on 12/21/18 3:[address] Late Entry 12/20/18 @ 1535 CM attempted to visit with patient regarding discharge planning/ needs. Patient currently on vent no family available. CM will continue to follow and assist as needed with discharge planning / needs DCP- Discharge Planning Updated by [email or web address]: Tia Ross on 12/21/18 3:[address] Late Entry 12/19/18 0945 CM attempted to visit with patient regarding discharge planning/ needs. Patient currently on vent no family available. CM will continue to follow and assist as needed with discharge planning / needs DCPIA - Discharge Planning Initial Assessment Updated by [email or web address]: Tia Ross on 12/23/18 4:46 pm * Is the patient Alert and Oriented? No * How many steps to enter\exit or inside your home? * [place]CP [place] [facility] * Preadmission Environment Home Alone * ADLs Independent * Other Equipment CANE, WALKER, WHEELCHAIR * List name and contact numbers for known caregivers / representatives who currently or will assist patient after discharge: MATTHEW HARRELL - SISTER - [phone] KIM PAINTER - LIFE PARTNER - [phone] * Verbal permission to speak to the caregivers and representatives has been obtained from the patient. N/A * Community resources currently utilized None * Additional services required to return to the preadmission environment? No * Can the patient safely return to the preadmission environment? Yes * Has this patient been hospitalized within the prior 30 days at any hospital? Yes Last DP export: 12/28/18 1:04 p Patient Name: CAROLINA MILLS Page 22222 at 1421 All edits/amendments must be made on the electronic document DICTATION DATE: 12/28/181419 LEAD PAINTER: FRANCES 12/28/181419 RPT#: [id number] DC DATE: STATUS: ADM IN [facility] [address] [place] [address] END OF REPORT
--- NOTE | 2018-12-28 17:19 | MORECARE ---
CASE MANAGEMENT DISCHARGE SUMMARY PATIENT: CAROLINA MILLS UNIT: [id number] ADM DATE: 12/16/18 AGE: 63 : 53 SEX: M ROOM/BED: D.[facility] AUTHOR: RADHA,DOC PHYSICIAN: REFERRING PHYSICIAN: RENATE TONEY DO DATE OF SERVICE: 12/28/18 Discharge Plan Patient Name: CAROLINA MILLS Facility: [facility]:[place] : 1955 Planned Disposition: [place] facility Anticipated Discharge Date: Discharge Date: Expected LOS: Initial Reviewer: [id number] Initial Review Date: 12/22/2018 Generated: 12/28/18 6:18 pm Comments DCP- Discharge Planning Updated by [id number]: Brendon Hahn on 12/28/18 4:[address] Patient Name: CAROLINA MILLS Encounter No: [id number] : 1955 Primary Insurance: [employer] ADMINISTRATION Anticipated DC Date: Planned Disposition: [place] facility External Planned Provider: [facility] OR USP DCP follow-up note: CM SPOKE TO PT IN ROOM REGARDING DISCHARGE PLANNING AND NEEDS. PT STATES HE WANTS TRANSFER TO [place] AND IF NEEDING REHAB, TO USP AT [facility] IN [place]. PT PROVIDES VERBAL CONSENT TO DISCUSS HIS CARE AND TREATMENT WITH HIS SIGNIFICANT OTHER, KIM PAINTER. RN HOUSE NOTIFIED WHO CONTACTED [place] EXPEDITOR, PT STILL ON TRANSFER LIST, [place] UPDATED ON PT'S CURRENT CONDITION AND TREATMENT, CLINICALS FAXED. CM CALLED [facility], , LEFT MESSAGE FOR SADIE GARCIA REQUESTING USP CARE FOR PT AT [facility]. PT IS ON THE [place] TRANSFER LIST. CM WAITING [place] BED AVAILABILITY. ÁNGEL WAITING RETURN CALL FROM [facility] REGARDING POSSIBILITY OF [facility] CARE AT [place] [facility]. Brendon Hahn, CASE MANAGEMENT Appended by Brendon Hahn on 12/28/2018 17:12 CDT: ÁNGEL RECEIVED RETURN CALL FROM [facility] REGARDING POSSIBILITY OF [facility] CARE AT [place] [facility]. PT'S CONDITION IS NOT SERVICE CONNECTED AND IS NOT ELIGIBLE FOR SKILLED SERVICES FOR POST CARE AT [facility]. IF PT REQUIRES USP CARE AT DISCHARGE, HE WILL NEED COMMUNITY USP FACILITY FOR MEDICARE COVERED SERVICES. PT IS ON THE [place] TRANSFER LIST. CM WAITING [place] BED AVAILABILITY. Brendon Hahn, CASE MANAGEMENT DCP- Discharge Planning Updated by [id number]: Sadieolena Deleon on 12/28/18 11:[address] PER ICU CM NOTE, [place] EXPEDITOR REQUESTED A CALL BACK AFTER PATIENT EXTUBATED. PT EXTUBATED ON 12/26 AND NO NOTE STATING THEY WERE CALLED BACK. PATIENT IS STILL REQUESTING A TRANSFER TO [place]. CALLED THE [place] EXPIDATION [place] ([phone]), AND SPOKE TO ALONA. INFORMATION WAS UPDATED. SHE STATED SHE WOULD HAVE SCREENER CALL FOR CLINICALS. ONCE INFORMATION RECEIVED, WILL SEND CLINICALS. CURRENTLY BED NOT AVAILABLE, THEY WILL CALL IF MD ACCEPTS AND BED AVAILABLE. WILL KEEP THEM UPDATED AND THE CLINICAL COORDINATOR. DCP- Discharge Planning Updated by [id number]: Tia Ross on 12/23/18 3:[address] Late Entry 12/22/18 @ 1215 Patient Name: CAROLINA MILLS Admission Status: ER Accout number: [id number] Admission Date: 12-16-2018 : 1955 Admission Diagnosis:ACUTE RESPIRATORY FAILURE WITH HYPOXIA Attending: RENATE TONEY Current LOS: 7 Anticipated DC Date: Planned Disposition: Primary Insurance: [facility] [employer] Discharge Planning Comments: CM met with patients life partner Kim Painter patient is currently still on vent. Kim stated the patient lives alone and that he was recently in hospital then went to [facility] for Rehab. She states he has only been home for 2 weeks. Uncertain as to what his disposition will be upon discharge. Daughter doesn't want him to have trach d/t patients being noncompliant with his medical care. Patient may need walk test if home 02 is needed upon discharge. CM will continue to follow and assist as needed with discharge planning / needs. Clinic Business Manager: Tia Ross DCP- Discharge Planning Updated by [id number]: Tia Ross on 12/21/18 3:[address] Late Entry 12/20/18 @ 1535 CM attempted to visit with patient regarding discharge planning/ needs. Patient currently on vent no family available. CM will continue to follow and assist as needed with discharge planning / needs DCP- Discharge Planning Updated by [id number]: Tia Ross on 12/21/18 3:[address] Late Entry 12/19/18 0945 CM attempted to visit with patient regarding discharge planning/ needs. Patient currently on vent no family available. CM will continue to follow and assist as needed with discharge planning / needs DCPIA - Discharge Planning Initial Assessment Updated by [id number]: Tia Ross on 12/23/18 4:46 pm * Is the patient Alert and Oriented? No * How many steps to enter\exit or inside your home? * PCP [place] CLINIC - * Pharmacy [place] * Preadmission Environment Home Alone * ADLs Independent * Other Equipment CANE, WALKER, WHEELCHAIR * List name and contact numbers for known caregivers / representatives who currently or will assist patient after discharge: MATTHEW HARRELL - SISTER - [phone] KIM Parson LIFE PARTNER - [phone] * Verbal permission to speak to the caregivers and representatives has been obtained from the patient. N/A * Community resources currently utilized None * Additional services required to return to the preadmission environment? No * Can the patient safely return to the preadmission environment? Yes * Has this patient been hospitalized within the prior 30 days at any hospital? Yes Last DP export: 12/28/18 1:21 p Patient Name: CAROLINA MILLS Page 52414 at 1719 All edits/amendments must be made on the electronic document DICTATION DATE: 12/28/181717 CINEMA OPERATOR: FRANCES 12/28/181717 RPT#: [id number] DC DATE: STATUS: ADM IN [facility] [address] [place] [address] END OF REPORT
[2018-12-29] VITALS: BP 137/78
[2018-12-29 05:58] LABS: BASOPHILS 0.1 % (0-2); HEMATOCRIT 34.7 % (42.0-54.0); HEMOGLOBIN 11.1 g/dL (13.5-17.5); LYMPHOCYTES 14.6 % (15-50); MCH 26.9 pg (26.0-34.0); MCV 84.2 fL (80.0-100.0); MEAN PLATELET VOLUME 11.4 fL (7.4-10.4); MONOCYTES 8.8 % (2-11); NEUTROPHILS 74.5 % (40-80); PLATELET COUNT 132 10x3/uL (130-400); RBC 4.12 10x6/uL (4.20-6.10); RDW 15.9 % (11.5-14.5); WBC 10.3 10x3/uL (4.8-10.8)
[2018-12-29 06:06] LABS: ALBUMIN 2.1 g/dL (3.4-5.0); ANION GAP 11.3 mmol/L (8-16); BILIRUBIN - TOTAL 0.61 mg/dL (0.2-1.3); CALCIUM 8.6 mg/dL (8.5-10.1); CARBON DIOXIDE 28.6 mmol/L (21.0-32.0); CREATININE - SERUM 1.8 mg/dL (0.6-1.3); POTASSIUM - SERUM 3.9 mmol/L (3.5-5.1); PROTEIN - SERUM 5.7 g/dL (6.4-8.2)
[2018-12-29 08:06] VITALS: BP 146/78
[2018-12-29 11:45] VITALS: BP 155/83
[2018-12-29 20:00] VITALS: BP 144/80
[2018-12-30 04:00] VITALS: BP 145/87
[2018-12-30 05:46] LABS: BASOPHILS 0.1 % (0-2); EOSINOPHILS 1.1 % (0-7); HEMATOCRIT 37.5 % (42.0-54.0); IMMATURE GRANULOCYTES 0.5 % (0-5); LYMPHOCYTES 7.7 % (15-50); MCH 27.3 pg (26.0-34.0); MCV 85.4 fL (80.0-100.0); MEAN PLATELET VOLUME 11.9 fL (7.4-10.4); MONOCYTES 6.6 % (2-11); PLATELET COUNT 137 10x3/uL (130-400); RBC 4.39 10x6/uL (4.20-6.10); RDW 16.4 % (11.5-14.5)
[2018-12-30 05:57] LABS: WBC 14.3 10x3/uL (4.8-10.8)
[2018-12-30 06:08] LABS: ALBUMIN 2.2 g/dL (3.4-5.0); BILIRUBIN - TOTAL 0.69 mg/dL (0.2-1.3); CALCIUM 8.8 mg/dL (8.5-10.1); CARBON DIOXIDE 29.3 mmol/L (21.0-32.0); CREATININE - SERUM 1.7 mg/dL (0.6-1.3); POTASSIUM - SERUM 4.3 mmol/L (3.5-5.1); PROTEIN - SERUM 6.1 g/dL (6.4-8.2)
[2018-12-30 07:44] VITALS: BP 158/89
--- NOTE | 2018-12-30 09:57 | MORECARE ---
CASE MANAGEMENT DISCHARGE SUMMARY PATIENT: CAROLINA MILLS UNIT: [id number] ADM DATE: 12/16/18 AGE: 63 : 53 SEX: M ROOM/BED: D.4493 AUTHOR: RADHA,DOC PHYSICIAN: REFERRING PHYSICIAN: RENATE TONEY DO DATE OF SERVICE: 12/30/18 Discharge Plan Patient Name: CAROLINA MILLS Facility: [facility]:[place] : 1955 Planned Disposition: [place] facility Anticipated Discharge Date: Discharge Date: Expected LOS: Initial Reviewer: [id number] Initial Review Date: 12/22/2018 Generated: 12/30/18 10:57 am Comments DCP- Discharge Planning Updated by [id number]: Brendon Hahn on 12/28/18 4:[address] Patient Name: CAROLINA MILLS Encounter No: [id number] : 1955 Primary Insurance: [employer] ADMINISTRATION Anticipated DC Date: Planned Disposition: [place] facility External Planned Provider: [facility] OR HALF-WAY DCP follow-up note: CM SPOKE TO PT IN ROOM REGARDING DISCHARGE PLANNING AND NEEDS. PT STATES HE WANTS TRANSFER TO [place] AND IF NEEDING REHAB, TO HALF-WAY AT [facility] IN [place]. PT PROVIDES VERBAL CONSENT TO DISCUSS HIS CARE AND TREATMENT WITH HIS SIGNIFICANT OTHER, KIM PAINTER. RN HOUSE NOTIFIED WHO CONTACTED [place] EXPEDITOR, PT STILL ON TRANSFER LIST, [place] UPDATED ON PT'S CURRENT CONDITION AND TREATMENT, CLINICALS FAXED. CM CALLED [facility], , LEFT MESSAGE FOR SADIE GARCIA REQUESTING HALF-WAY CARE FOR PT AT [facility]. PT IS ON THE [place] TRANSFER LIST. CM WAITING [place] BED AVAILABILITY. ÁNGEL WAITING RETURN CALL FROM [facility] REGARDING POSSIBILITY OF HALF-WAY CARE AT [place] [facility]. Brendon Hahn, CASE MANAGEMENT Appended by Brendon Hahn on 12/28/2018 17:12 CDT: ÁNGEL RECEIVED RETURN CALL FROM [facility] REGARDING POSSIBILITY OF [facility]F-WAY CARE AT [place] [facility]. PT'S CONDITION IS NOT SERVICE CONNECTED AND IS NOT ELIGIBLE FOR SKILLED SERVICES FOR POST CARE AT [facility]. IF PT REQUIRES HALF-WAY CARE AT DISCHARGE, HE WILL NEED COMMUNITY HALF-WAY FACILITY FOR MEDICARE COVERED SERVICES. PT IS ON THE [place] TRANSFER LIST. CM WAITING [place] BED AVAILABILITY. Brendon Hahn, CASE MANAGEMENT DCP- Discharge Planning Updated by [id number]: Sadieolena Deleon on 12/28/18 11:[address] PER ICU CM NOTE, [place] EXPEDITOR REQUESTED A CALL BACK AFTER PATIENT EXTUBATED. PT EXTUBATED ON 12/26 AND NO NOTE STATING THEY WERE CALLED BACK. PATIENT IS STILL REQUESTING A TRANSFER TO [place]. CALLED THE [place] EXPIDATION [place] ([phone]), AND SPOKE TO ALONA. INFORMATION WAS UPDATED. SHE STATED SHE WOULD HAVE SCREENER CALL FOR CLINICALS. ONCE INFORMATION RECEIVED, WILL SEND CLINICALS. CURRENTLY BED NOT AVAILABLE, THEY WILL CALL IF MD ACCEPTS AND BED AVAILABLE. WILL KEEP THEM UPDATED AND THE CLINICAL COORDINATOR. DCP- Discharge Planning Updated by [email or web address]: Tia Ross on 12/23/18 3:[address] Late Entry 12/22/18 @ 1215 Patient Name: CAROLINA MILLS Admission Status: ER Accout number: [id number] Admission Date: 12-16-2018 : 1955 Admission Diagnosis:ACUTE RESPIRATORY FAILURE WITH HYPOXIA Attending: RENATE TONEY Current LOS: 7 Anticipated DC Date: Planned Disposition: Primary Insurance: [facility] [employer] Discharge Planning Comments: CM met with patients life partner Kim Painter patient is currently still on vent. Kim stated the patient lives alone and that he was recently in hospital then went to [facility] for Rehab. She states he has only been home for 2 weeks. Uncertain as to what his disposition will be upon discharge. Daughter doesn't want him to have trach d/t patients being noncompliant with his medical care. Patient may need walk test if home 02 is needed upon discharge. CM will continue to follow and assist as needed with discharge planning / needs. Career Development Associate: Tia Ross DCP- Discharge Planning Updated by [email or web address]: Tia Ross on 12/21/18 3:[address] Late Entry 12/20/18 @ 1535 CM attempted to visit with patient regarding discharge planning/ needs. Patient currently on vent no family available. CM will continue to follow and assist as needed with discharge planning / needs DCP- Discharge Planning Updated by [id number]: Tia Ross on 12/21/18 3:[address] Late Entry 12/19/18 0945 CM attempted to visit with patient regarding discharge planning/ needs. Patient currently on vent no family available. CM will continue to follow and assist as needed with discharge planning / needs DCPIA - Discharge Planning Initial Assessment Updated by [id number]: Tia Ross on 12/23/18 4:46 pm * Is the patient Alert and Oriented? No * How many steps to enter\exit or inside your home? * [facility] [place] [facility] * Preadmission Environment Home Alone * ADLs Independent * Other Equipment CANE, WALKER, WHEELCHAIR * List name and contact numbers for known caregivers / representatives who currently or will assist patient after discharge: MATTHEW HARRELL - SISTER - [phone] KIM Parson LIFE PARTNER - [phone] * Verbal permission to speak to the caregivers and representatives has been obtained from the patient. N/A * Community resources currently utilized None * Additional services required to return to the preadmission environment? No * Can the patient safely return to the preadmission environment? Yes * Has this patient been hospitalized within the prior 30 days at any hospital? Yes External Providers External Provider: [facility](provides inp Next Contact Date: 12/30/2018 Service Request Date: Service Type: Resolution: Reviewer: Comments: Last DP export: 12/28/18 4:19 p Patient Name: CAROLINA MILLS Page 40584 at 0957 All edits/amendments must be made on the electronic document DICTATION DATE: 12/30/18956 PARTY CHIEF: FRANCES 12/30/18956 RPT#: [id number] DC DATE: STATUS: ADM IN [facility] [address] [place] [address] END OF REPORT
--- NOTE | 2018-12-30 11:24 | MORECARE ---
CASE MANAGEMENT DISCHARGE SUMMARY PATIENT: CAROLINA MILLS UNIT: [id number] ADM DATE: 12/16/18 AGE: 63 : [birth year] SEX: M ROOM/BED: D.[facility] AUTHOR: HUONG GARCIA PHYSICIAN: REFERRING PHYSICIAN: RENATE TONEY DO DATE OF SERVICE: 12/30/18 Discharge Plan Patient Name: CAROLINA MILLS Facility: [facility]:[place] : 1955 Planned Disposition: [place] facility Anticipated Discharge Date: Discharge Date: Expected LOS: Initial Reviewer: [id number] Initial Review Date: 12/22/2018 Generated: 12/30/18 12:24 pm Comments DCP- Discharge Planning Updated by [id number]: Brendon Hahn on 12/30/18 10:[address] Patient Name: CAROLINA MILLS Encounter No: [id number] : 1955 Primary Insurance: [facility] Anticipated DC Date: Planned Disposition: hospice medical facility External Planned Provider: [facility] DCP follow-up note: CM RECEIVED HOSPICE ORDER, PT'S BEDSIDE NURSE HAS SPOKEN TO PT'S SISTER WHO REQUESTS HOPSICE WITH [facility]. CHOICE SIGNED. CM FAXED HOSPICE REFERRAL TO [facility] AT [phone]. CM CALLED [facility], , SPOKE TO BHAVYA WHO REQUESTED FAX BE RESENT. CM RESENT FAX. CM WAITING INPATIENT HOSPICE EVALUATION AND ADMISSION DETERMINATION FROM [facility]. Brendon Hahn, CASE MANAGEMENT DCP- Discharge Planning Updated by [id number]: Brendon Hahn on 12/28/18 4:[address] Patient Name: CAROLINA MILLS Encounter No: [id number] : 1955 Primary Insurance: [facility] Anticipated DC Date: Planned Disposition: [facility] External Planned Provider: [facility] OR ALF DCP follow-up note: CM SPOKE TO PT IN ROOM REGARDING DISCHARGE PLANNING AND NEEDS. PT STATES HE WANTS TRANSFER TO [place] AND IF NEEDING REHAB, TO ALF AT [facility] IN [place]. PT PROVIDES VERBAL CONSENT TO DISCUSS HIS CARE AND TREATMENT WITH HIS SIGNIFICANT OTHER, KIM PAINTER. RN [facility] NOTIFIED WHO CONTACTED [place] EXPEDITOR, PT STILL ON TRANSFER LIST, [place] UPDATED ON PT'S CURRENT CONDITION AND TREATMENT, CLINICALS FAXED. CM CALLED [facility], , LEFT MESSAGE FOR SADIE GARCIA REQUESTING [place]F CARE FOR PT AT [place] [facility]. PT IS ON THE [place] TRANSFER LIST. CM WAITING [place] BED AVAILABILITY. CM WAITING RETURN CALL FROM [facility] REGARDING POSSIBILITY OF ALF CARE AT [facility]. Brendon Hahn, CASE MANAGEMENT Appended by Brendon Hahn on 12/28/2018 17:12 CDT: CM RECEIVED RETURN CALL FROM [facility] REGARDING POSSIBILITY OF ALF CARE AT [facility]. PT'S CONDITION IS NOT SERVICE CONNECTED AND IS NOT ELIGIBLE FOR SKILLED SERVICES FOR POST CARE AT [facility]. IF PT REQUIRES ALF CARE AT DISCHARGE, HE WILL NEED COMMUNITY ALF FACILITY FOR MEDICARE COVERED SERVICES. PT IS ON THE [place] TRANSFER LIST. CM WAITING [place] BED AVAILABILITY. Brendon Hahn, CASE MANAGEMENT DCP- Discharge Planning Updated by [id number]: Sadie Deleon on 12/28/18 11:[address] PER ICU CM NOTE, [place] EXPEDITOR REQUESTED A CALL BACK AFTER PATIENT EXTUBATED. PT EXTUBATED ON 12/26 AND NO NOTE STATING THEY WERE CALLED BACK. PATIENT IS STILL REQUESTING A TRANSFER TO [place]. CALLED THE [place] EXPIDATION LINE ([phone]), AND SPOKE TO ALONA. INFORMATION WAS UPDATED. SHE STATED SHE WOULD HAVE SCREENER CALL FOR CLINICALS. ONCE INFORMATION RECEIVED, WILL SEND CLINICALS. CURRENTLY BED NOT AVAILABLE, THEY WILL CALL IF MD ACCEPTS AND BED AVAILABLE. WILL KEEP THEM UPDATED AND THE CLINICAL COORDINATOR. DCP- Discharge Planning Updated by [id number]: Tia Ross on 12/23/18 3:[address] Late Entry 12/22/18 @ 1215 Patient Name: CAROLINA MILLS Admission Status: ER Accout number: [id number] Admission Date: 12-16-2018 : 1955 Admission Diagnosis:ACUTE RESPIRATORY FAILURE WITH HYPOXIA Attending: RENATE TONEY Current LOS: 7 Anticipated DC Date: Planned Disposition: Primary Insurance: [facility] Discharge Planning Comments: CM met with patients life partner Kim Painter patient is currently still on vent. Kim stated the patient lives alone and that he was recently in hospital then went to [facility] for Rehab. She states he has only been home for 2 weeks. Uncertain as to what his disposition will be upon discharge. Daughter doesn't want him to have trach d/t patients being noncompliant with his medical care. Patient may need walk test if home 02 is needed upon discharge. CM will continue to follow and assist as needed with discharge planning / needs. Global Commodity Manager: Tia Ross DCP- Discharge Planning Updated by [id number]: Tia Ross on 12/21/18 3:[address] Late Entry 12/20/18 @ 1535 CM attempted to visit with patient regarding discharge planning/ needs. Patient currently on vent no family available. CM will continue to follow and assist as needed with discharge planning / needs DCP- Discharge Planning Updated by [email or web address]: Tia Ross on 12/21/18 3:[address] Late Entry 12/19/18 0945 CM attempted to visit with patient regarding discharge planning/ needs. Patient currently on vent no family available. CM will continue to follow and assist as needed with discharge planning / needs DCPIA - Discharge Planning Initial Assessment Updated by [email or web address]: Tia Ross on 12/23/18 4:46 pm * Is the patient Alert and Oriented? No * How many steps to enter\exit or inside your home? * PCP [place] [facility] * Preadmission Environment Home Alone * ADLs Independent * Other Equipment CANE, WALKER, WHEELCHAIR * List name and contact numbers for known caregivers / representatives who currently or will assist patient after discharge: MATTHEW HARRELL - SISTER - [phone] KIM PAINTER [facility] PARTNER - [phone] * Verbal permission to speak to the caregivers and representatives has been obtained from the patient. N/A * Community resources currently utilized None * Additional services required to return to the preadmission environment? No * Can the patient safely return to the preadmission environment? Yes * Has this patient been hospitalized within the prior 30 days at any hospital? Yes Last DP export: 12/30/18 8:57 a Patient Name: CAROLINA MILLS Page 68038 at 1124 All edits/amendments must be made on the electronic document DICTATION DATE: 12/30/18 112 MRI SUPERVISOR: FRANCES 12/30/18 1124 RPT#: [id number] DC DATE: STATUS: ADM IN [facility] [address] [place] [address] END OF REPORT
--- NOTE | 2018-12-30 11:57 | MORECARE ---
CASE MANAGEMENT DISCHARGE SUMMARY PATIENT: CAROLINA MILLS UNIT: [id number] ADM DATE: 12/16/18 AGE: 63 : 51 SEX: M ROOM/BED: D.4903 AUTHOR: RADHA,DOC PHYSICIAN: REFERRING PHYSICIAN: RENATE TONEY DO DATE OF SERVICE: 12/30/18 Discharge Plan Patient Name: CAROLINA MILLS Facility: [facility]:[place] : 1955 Planned Disposition: [place] facility Anticipated Discharge Date: Discharge Date: Expected LOS: Initial Reviewer: [id number] Initial Review Date: 12/22/2018 Generated: 12/30/18 12:57 pm Comments DCP- Discharge Planning Updated by [id number]: Evaristo Deleon on 12/30/18 10:[address] CALL PLACED TO HOSPICE. THEY HAVE NOT RECEIVED ANY INFORMATION ON THE PATIENT IN REGARDS TO THE REFERRAL. PER OBDULIA AT [phone]. REFAXED THE FACE SHEET, ORDER AND H&P. I HAVE ALSO PRINTED OUT A PACKET FOR THE NURSE COMING TO DO THE REFERRAL. WILL WAIT ON HOSPICE DETERMINATION. DCP- Discharge Planning Updated by [id number]: Brendon Hahn on 12/30/18 10:[address] Patient Name: CAROLINA MILLS Encounter No: [id number] : 1955 Primary Insurance: [employer] Anticipated DC Date: Planned Disposition: [facility] facility External Planned Provider: [facility] DCP follow-up note: CM RECEIVED HOSPICE ORDER, PT'S BEDSIDE NURSE HAS SPOKEN TO PT'S SISTER WHO REQUESTS HOPSICE WITH [facility]. CHOICE SIGNED. CM FAXED HOSPICE REFERRAL TO [facility] AT [phone]. CM CALLED [facility], , SPOKE TO BHAVYA WHO REQUESTED FAX BE RESENT. CM RESENT FAX. CM WAITING INPATIENT HOSPICE EVALUATION AND ADMISSION DETERMINATION FROM [facility]. Brendon Hahn CASE MANAGEMENT DCP- Discharge Planning Updated by [id number]: Brendon Hahn on 12/28/18 4:[address] Patient Name: CAROLINA MILLS Encounter No: [id number] : 1955 Primary Insurance: [employer] ADMINISTRATION Anticipated DC Date: [facility] External Planned Provider: [facility] OR [facility]IREMENT [facility] follow-up note: CM SPOKE TO PT IN ROOM REGARDING DISCHARGE PLANNING AND NEEDS. PT STATES HE [place] TRANSFER TO [place] AND IF NEEDING REHAB, TO RETIREMENT AT [facility] IN [place]. PT PROVIDES VERBAL CONSENT TO DISCUSS HIS CARE AND TREATMENT WITH HIS SIGNIFICANT OTHER, REANNA PAINTER. RN ÁNGEL DELEON NOTIFIED WHO CONTACTED [place] EXPEDITOR, PT STILL ON TRANSFER LIST, [place] UPDATED ON PT'S CURRENT CONDITION AND TREATMENT, CLINICALS FAXED. CM CALLED [facility], , LEFT MESSAGE FOR EVARISTO RADHA REQUESTING RETIREMENT CARE FOR PT AT [facility]. PT IS ON THE [place] TRANSFER LIST. CM WAITING [place] BED AVAILABILITY. CM WAITING RETURN CALL FROM [facility] REGARDING POSSIBILITY OF RETIREMENT CARE AT [facility]. Brendon Hahn, CASE MANAGEMENT Appended by Brendon Hahn on 12/28/2018 17:12 CDT: CM RECEIVED RETURN CALL FROM [facility] REGARDING POSSIBILITY OF RETIREMENT CARE AT [facility]. PT'S CONDITION IS NOT SERVICE CONNECTED AND IS NOT ELIGIBLE FOR SKILLED SERVICES FOR POST CARE AT [facility]. IF PT REQUIRES RETIREMENT CARE AT DISCHARGE, HE WILL NEED COMMUNITY RETIREMENT FACILITY FOR MEDICARE COVERED SERVICES. PT IS ON THE [place] TRANSFER LIST. CM WAITING [place] BED AVAILABILITY. Brendon Hahn, CASE MANAGEMENT DCP- Discharge Planning Updated by [id number]: Evaristo Deleon on 12/28/18 11:[address] PER ICU CM NOTE, [place] EXPEDITOR REQUESTED A CALL BACK AFTER PATIENT EXTUBATED. PT EXTUBATED ON 12/26 AND NO NOTE STATING THEY WERE CALLED BACK. PATIENT IS STILL REQUESTING A TRANSFER TO [place]. CALLED THE [place] EXPIDATION LINE ([phone]), AND SPOKE TO ALONA. INFORMATION WAS UPDATED. SHE STATED SHE WOULD HAVE SCREENER CALL FOR CLINICALS. ONCE INFORMATION RECEIVED, WILL SEND CLINICALS. CURRENTLY BED NOT AVAILABLE, THEY WILL CALL IF MD ACCEPTS AND BED AVAILABLE. WILL KEEP THEM UPDATED AND THE CLINICAL COORDINATOR. DCP- Discharge Planning Updated by [id number]: Tia Ross on 12/23/18 3:[address] Late Entry 12/22/18 @ 1215 Patient Name: CAROLINA MILLS Admission Status: ER Accout number: [id number] Admission Date: 12-16-2018 : 1955 Admission Diagnosis:ACUTE RESPIRATORY FAILURE WITH HYPOXIA Attending: RENATE TONEY Current LOS: 7 Anticipated DC Date: Planned Disposition: Primary Insurance: [employer] Discharge Planning Comments: CM met with patients life partner Reanna Painter patient is currently still on vent. Reanna stated the patient lives alone and that he was recently in hospital then went to [facility] for Rehab. She states he has only been home for 2 weeks. Uncertain as to what his disposition will be upon discharge. Daughter doesn't want him to have trach d/t patients being noncompliant with his medical care. Patient may need walk test if home 02 is needed upon discharge. CM will continue to follow and assist as needed with discharge planning / needs. Print Production Associate: Tia Ross DCP- Discharge Planning Updated by [id number]: Tia Ross on 12/21/18 3:[address] Late Entry 12/20/18 @ 1535 CM attempted to visit with patient regarding discharge planning/ needs. Patient currently on vent no family available. CM will continue to follow and assist as needed with discharge planning / needs DCP- Discharge Planning Updated by [id number]: Tia Ross on 12/21/18 3:[address] Late Entry 12/19/18 0945 CM attempted to visit with patient regarding discharge planning/ needs. Patient currently on vent no family available. CM will continue to follow and assist as needed with discharge planning / needs DCPIA - Discharge Planning Initial Assessment Updated by [email or web address]: Tia Ross on 12/23/18 4:46 pm * Is the patient Alert and Oriented? No * How many steps to enter\exit or inside your home? * PCP [place]IC - * [place] * Preadmission Environment Home Alone * ADLs Independent * Other Equipment CANE, WALKER, WHEELCHAIR * List name and contact numbers for known caregivers / representatives who currently or will assist patient after discharge: MATTHEW HARRELL - SISTER - [phone] REANNA PAINTER - LIFE PARTNER - [phone] * Verbal permission to speak to the caregivers and representatives has been obtained from the patient. N/A * Community resources currently utilized None * Additional services required to return to the preadmission environment? No * Can the patient safely return to the preadmission environment? Yes * Has this patient been hospitalized within the prior 30 days at any hospital? Yes Coverage Notice Reviewer: [id number] Eb Deleon Notice Issued Date-Time: 12/30/2018 9:00 Notice Type: Patient Choice Letter Notice Delivered To: Other Relationship to Patient: Daughter Director Safety Council Name: MATTHEW HARRELL Delivery Method: - Jordana Days: Prior Verbal Notification: Recipient Understood Notice: Recipient Signature: Med Rec Note Co-signed by Attending: Coverage Notice Comment: Last DP export: 12/30/18 10:24 a Patient Name: CAROLINA MILLS Page 10488 at 1157 All edits/amendments must be made on the electronic document DICTATION DATE: 12/30/18 1156 HERBARIUM CURATOR: FRANCES 12/30/18 1156 RPT#: [id number] DC DATE: STATUS: ADM IN [facility] [address] [place] [address] END OF REPORT
--- NOTE | 2019-01-02 08:45 | MORECARE ---
CASE MANAGEMENT DISCHARGE SUMMARY PATIENT: CAROLINA MILLS UNIT: [id number] ADM DATE: 12/16/18 AGE: 63 : 51 SEX: M ROOM/BED: D.1753 AUTHOR: HUONG GARCIA PHYSICIAN: REFERRING PHYSICIAN: RENATE TONEY DO DATE OF SERVICE: 01/02/19 Discharge Plan Patient Name: CAROLINA MILLS Facility: [facility]:[place] : 1955 [place] Disposition: [place] facility Anticipated Discharge Date: Discharge Date: 12/30/2018 Expected LOS: Initial Reviewer: [id number] Initial Review Date: 12/22/2018 Generated: 01/02/19 9:45 am Comments DCP- Discharge Planning Updated by [id number]: Evaristo Deleon on 12/30/18 10:[address] CALL PLACED TO HOSPICE. THEY HAVE NOT RECEIVED ANY INFORMATION ON THE PATIENT IN REGARDS TO THE REFERRAL. PER OBDULIA AT [phone]. REFAXED THE FACE SHEET, ORDER AND H&P. I HAVE ALSO PRINTED OUT A PACKET FOR THE NURSE COMING TO DO THE REFERRAL. WILL WAIT ON HOSPICE DETERMINATION. DCP- Discharge Planning Updated by [email or web address]: Brendon Hahn on 12/30/18 10:[address] Patient Name: CAROLINA MILLS Encounter No: [id number] : 1955 Primary Insurance: [employer] Anticipated DC Date: Planned Disposition: [facility] medical facility External Planned Provider: [facility] DCP follow-up note: CM RECEIVED HOSPICE ORDER, PT'S BEDSIDE NURSE HAS SPOKEN TO PT'S SISTER WHO REQUESTS HOPSICE WITH [facility]. CHOICE SIGNED. CM FAXED HOSPICE REFERRAL TO [facility] AT [phone]. CM CALLED [facility], , SPOKE TO BHAVYA WHO REQUESTED FAX BE RESENT. CM RESENT FAX. CM WAITING INPATIENT HOSPICE EVALUATION AND ADMISSION DETERMINATION FROM [facility]. Brendon Hahn, CASE MANAGEMENT DCP- Discharge Planning Updated by [id number]: Brendon Hahn on 12/28/18 4:[address] Patient Name: CAROLINA MILLS Encounter No: [id number] : 1955 Primary Insurance: [facility] ADMINISTRATION Anticipated DC Date: Planned Disposition: [place] facility External Planned Provider: [facility] OR RETIREMENT DCP follow-up note: CM SPOKE TO PT IN ROOM REGARDING DISCHARGE PLANNING AND NEEDS. PT STATES HE WANT[place]SF[place] TO [place] AND IF NEEDING REHAB, TO RETIREMENT AT [facility] IN [place]. PT PROVIDES VERBAL CONSENT TO DISCUSS HIS CARE AND TREATMENT WITH HIS SIGNIFICANT OTHER, REANNA PAINTER. RN ÁNGEL DELEON NOTIFIED WHO CONTACTED [place] EXPEDITOR, PT STILL ON TRANSFER LIST, [place] UPDATED ON PT'S CURRENT CONDITION AND TREATMENT, CLINICALS FAXED. CM CALLED [facility], , LEFT MESSAGE FOR EVARISTO RADHA REQUESTING RETIREMENT CARE FOR PT AT [facility]. PT IS ON THE [place] TRANSFER LIST. CM WAITING [place] BED AVAILABILITY. CM WAITING RETURN CALL FROM [facility] REGARDING POSSIBILITY OF RETIREMENT CARE AT [facility]. Brendon Hahn, CASE MANAGEMENT Appended by Brendon Hahn on 12/28/2018 17:12 CDT: CM RECEIVED RETURN CALL FROM [facility] OF [facility] REGARDING POSSIBILITY OF RETIREMENT CARE AT [facility]. PT'S CONDITION IS NOT SERVICE CONNECTED AND IS NOT ELIGIBLE FOR SKILLED SERVICES FOR POST CARE AT [facility]. IF PT REQUIRES RETIREMENT CARE AT DISCHARGE, HE WILL NEED COMMUNITY RETIREMENT FACILITY FOR MEDICARE COVERED SERVICES. PT IS ON THE [place] TRANSFER LIST. CM WAITING [place] BED AVAILABILITY. Brendon Hahn, CASE MANAGEMENT DCP- Discharge Planning Updated by [email or web address]: Evaristo Deleon on 12/28/18 11:[address] PER ICU CM NOTE, [place] EXPEDITOR REQUESTED A CALL BACK AFTER PATIENT EXTUBATED. PT EXTUBATED ON 12/26 AND NO NOTE STATING THEY WERE CALLED BACK. PATIENT IS STILL REQUESTING A TRANSFER TO [place]. CALLED THE [place] EXPIDATION LINE ([phone]), AND SPOKE TO ALONA. INFORMATION WAS UPDATED. SHE STATED SHE WOULD HAVE SCREENER CALL FOR CLINICALS. ONCE INFORMATION RECEIVED, WILL SEND CLINICALS. CURRENTLY BED NOT AVAILABLE, THEY WILL CALL IF MD ACCEPTS AND BED AVAILABLE. WILL KEEP THEM UPDATED AND THE CLINICAL COORDINATOR. DCP- Discharge Planning Updated by [id number]: Tia Ross on 12/23/18 3:[address] Late Entry 12/22/18 @ 1215 Patient Name: CAROLINA MILLS Admission Status: ER Accout number: [id number] Admission Date: 12-16-2018 : 1955 Admission Diagnosis:ACUTE RESPIRATORY FAILURE WITH HYPOXIA Attending: RENATE TONEY Current LOS: 7 Anticipated DC Date: Planned Disposition: Primary Insurance: [employer] Discharge Planning Comments: CM met with patients life partner Reanna Painter patient is currently still on vent. Reanna stated the patient lives alone and that he was recently in hospital then went to [facility] for Rehab. She states he has only been home for 2 weeks. Uncertain as to what his disposition will be upon discharge. Daughter doesn't want him to have trach d/t patients being noncompliant with his medical care. Patient may need walk test if home 02 is needed upon discharge. CM will continue to follow and assist as needed with discharge planning / needs. Extractor Puller: Tia Ross DCP- Discharge Planning Updated by [id number]: Tia Ross on 12/21/18 3:[address] Late Entry 12/20/18 @ 1535 CM attempted to visit with patient regarding discharge planning/ needs. Patient currently on vent no family available. CM will continue to follow and assist as needed with discharge planning / needs DCP- Discharge Planning Updated by [id number]: Tia Ross on 12/21/18 3:[address] Late Entry 12/19/18 0945 CM attempted to visit with patient regarding discharge planning/ needs. Patient currently on vent no family available. CM will continue to follow and assist as needed with discharge planning / needs DCPIA - Discharge Planning Initial Assessment Updated by [id number]: Tia Ross on 12/23/18 4:46 pm * Is the patient Alert and Oriented? No * How many steps to enter\exit or inside your home? * PCP [place] CLINIC - * [place] * Preadmission Environment Home Alone * ADLs Independent * Other Equipment CANE, WALKER, WHEELCHAIR * List name and contact numbers for known caregivers / representatives who currently or will assist patient after discharge: MATTHEW HARRELL - SISTER - [phone] REANNA PAINTER - LIFE PARTNER - [phone] * Verbal permission to speak to the caregivers and representatives has been obtained from the patient. N/A * Community resources currently utilized None * Additional services required to return to the preadmission environment? No * Can the patient safely return to the preadmission environment? Yes * Has this patient been hospitalized within the prior 30 days at any hospital? Yes Coverage Notice Reviewer: [id number] Eb Evaristoolena Deleon Notice Issued Date-Time: 12/30/2018 9:00 Notice Type: Patient Choice Letter Notice Delivered To: Other Relationship to Patient: Daughter Forming Machine Operator Name: MATTHEW HARRELL Delivery Method: - Jordana Days: Prior Verbal Notification: Recipient Understood Notice: Recipient Signature: Med Rec Note Co-signed by Attending: Coverage Notice Comment: Last DP export: 12/30/18 10:57 a Patient Name: CAROLINA MILLS Page [id number] at 0845 All edits/amendments must be made on the electronic document DICTATION DATE: 01/02/19844 PIER WORKER: FRANCES 01/02/1947 RPT#: [id number] DC DATE:12/30/18 STATUS: DIS IN [facility] [address] [place] [address] END OF REPORT
== END 2018-12-30 13:23 | disposition hospice, inpatient (51) | DRG 853 ==
LOC: D.ER 15:16 → D.ICU 19:19 → D.M2 12-27 17:14
PROVIDERS: Family Medicine; Internal Medicine Interventional Cardiology; Internal Medicine Nephrology; Internal Medicine Pulmonary Disease; ADMIT Family Medicine; ATTEND Family Medicine
PROC: 0BH17EZ Insertion of Endotracheal Airway into Trachea, Via Natural or Artificial Opening (ICD-10-PCS; 2018-12-16)
PROC: 5A1955Z Respiratory Ventilation, Greater than 96 Consecutive Hours (ICD-10-PCS; 2018-12-16)
PROC: B2021ZZ Plain Radiography of Single Coronary Artery Bypass Graft using Low Osmolar Contrast (ICD-10-PCS; 2018-12-23)
PROC: 027034Z Dilation of Coronary Artery, One Artery with Drug-eluting Intraluminal Device, Percutaneous Approach (ICD-10-PCS; principal; 2018-12-23 14:34)
DX: A41.9 Sepsis, unspecified organism (principal); J96.01 Acute respiratory failure with hypoxia; I21.9 Acute myocardial infarction, unspecified; I50.21 Acute systolic (congestive) heart failure; K72.00 Acute and subacute hepatic failure without coma; J96.02 Acute respiratory failure with hypercapnia; J18.1 Lobar pneumonia, unspecified organism; J69.0 Pneumonitis due to inhalation of food and vomit; J44.1 Chronic obstructive pulmonary disease with (acute) exacerbation; I13.0 Hypertensive heart and chronic kidney disease with heart failure and stage 1 through stage 4 chronic kidney disease, or unspecified chronic kidney disease; N17.9 Acute kidney failure, unspecified; E87.2 Acidosis; G81.91 Hemiplegia, unspecified affecting right dominant side; N18.3 Chronic kidney disease, stage 3 (moderate); E11.22 Type 2 diabetes mellitus with diabetic chronic kidney disease; N40.0 Benign prostatic hyperplasia without lower urinary tract symptoms; I25.10 Atherosclerotic heart disease of native coronary artery without angina pectoris; D64.9 Anemia, unspecified; D69.6 Thrombocytopenia, unspecified; Z91.14 Patient's other noncompliance with medication regimen; E87.6 Hypokalemia; E11.65 Type 2 diabetes mellitus with hyperglycemia

== ENCOUNTER 2018-12-30 13:31 | Inpatient (IN) | payer OTHER ==
[~2018-12-30] VITALS: Ht 172.7 cm; Wt 60.9 kg
--- NOTE | 2018-12-30 19:44 | NUR ---
EVENING ROUNDS COMPLETED. REPORT RECEIVED. PT SITTING UP IN BED WITH EYES CLOSED, RR EVEN AND LABORED. OXYGEN AT 2 LITERS BY NASAL CANNULA. BED IN LOW POSITION. FAMILY AT BEDSIDE. INTRODUCED SELF TO FAMILY. DENIES FURTHER NEEDS AT THIS TIME. HYDROMORPHONE GOLD RECLAIMER INFUSING ORDERED THROUGH RIGHT SIDE PICC LINE. NO S/S OF DISTRESS NOTED. CALL LIGHT IN REACH. WILL CTM.
--- NOTE | 2018-12-30 22:36 | NUR ---
BOLUS DOSE ADMINISTERED ORDERED
--- NOTE | 2018-12-31 02:59 | NUR ---
I have reviewed this patient and I concur with the Shift Assessment completed by the Licensed Practical Nurse today this shift.
[2018-12-31 07:58] VITALS: BP 126/78
--- NOTE | 2018-12-31 08:00 | NUR ---
RECIEVED REPORT. FAMILY AT BEDSIDE. PATIENT IS SOMULENT AND THAT IS ACCEPTABLE AT THIS TIME BECAUSE HE IS ON HOSPICE CARE. HE IS ON A PRIMER SUPERVISOR CONTINUOUS, AND HIS BREATHING IS UNLABORED AT THIS TIME. FAMILY DENIES ANY NEEDS AT THIS TIME.
--- NOTE | 2018-12-31 13:25 | NUR ---
FAMILY AT BEDSIDE. ORAL CARE COMPLETED. PATIENT IS RESTING QUIETLY AT THIS TIME. THERE IS SOME 20 SECOND GAPS BETWEEN BREATHS AT THIS TIME. APPROXIMATELY EVERY 15 BREATHS THERE IS A GAP IN BREATHS. PATIENT IS NOT RESPONSIVE TO TOUCH OR VOICE AT THIS TIME.
--- NOTE | 2018-12-31 18:16 | NUR ---
I have reviewed this patient and I concur with the Shift Assessment completed by the Licensed Practical Nurse today this shift.
--- NOTE | 2018-12-31 19:43 | NUR ---
EVENING ROUNDS COMPLETED. REPORT RECEIVED. PT SITTING UP IN BED WITH EYES CLOSED, RR EVEN AND LABORED. OXYGEN AT 2 LITERS BY NASAL CANNULA. HYDROMORPHONE NEWS PRODUCTION ASSISTANT INFUSING THROUGH RIGHT SIDED CENTRAL LINE ORDERED. WHITE BOARD UP DATED. SPOKE TO PT EX KIM, SHE PROVIDED CONTACT INFORMATION. 12 MLS LEFT IN HYDROMORPHONE NEWS PRODUCTION ASSISTANT. NO S/S OF DISTRESS NOTED. CALL LIGHT IN REACH. WILL CTM.
[2018-12-31 21:10] VITALS: BP 136/78
--- NOTE | 2018-12-31 22:11 | NUR ---
ADMINISTERED BOLUS DOSE OF HYDROMORPHONE LOCAL COMPANY TRUCK DRIVER PT BEGAN TO NONVERBALLY EXPRESS SYMPTOMS OF PAIN BY GRIMACING IN THE FACE AND MOANING.
[2019-01-01 00:54] VITALS: BP 136/78; Ht 172.7 cm; Wt 60.9 kg
[2019-01-01 09:54] VITALS: BP 132/75
--- NOTE | 2019-01-01 19:32 | NUR ---
EVENING ROUNDS COMPLETED. REPORT RECEIVED. PT SITTING UP IN BED WITH EYES CLOSED, RR EVEN AND UNLABORED. BED IN LOW POSITION. EX KIM AT BEDSIDE, SHE REQUESTED TO BE CALLED FIRST IN THE EVENT OF AN EMERGENCY. HYDROMORPHONE WATCH ELECTRICIAN INFUSING ORDERED THROUGH RIGHT JUGULAR CENTRAL LINE. NO S/S OF DISTRESS NOTED. CALL LIGHT IN REACH. WILL CTM.
[2019-01-01 20:07] VITALS: BP 132/76
--- NOTE | 2019-01-02 04:25 | NUR ---
I have reviewed this patient and I concur with the Shift Assessment completed by the Licensed Practical Nurse today this shift.
[2019-01-02 07:48] VITALS: BP 118/73
--- NOTE | 2019-01-02 14:18 | NUR ---
RESTING COMFORTABLE WITH EYES SHUT IN BED. HOSPICE NURSE AT BEDSIDE. RESPIRATIONS 16/MIN. CONTINUE PLAN OF CARE AND SAFETY PRECAUTIONS.
--- NOTE | 2019-01-02 19:06 | NUR ---
LOOKED IN ON PT RESPERATIONS EVEN AT 14 SRX2 AND BED IS LOW.
--- NOTE | 2019-01-02 19:40 | NUR ---
DILAUDID CONTINOUS TO RT JUGULAR SRX2 STAFF SEEING TO ALL PT NEEDS PT NOT RESPONSIVE AT ALL AND DOES NOT MOVE EXTREMITIES NOTED PT IS DNR.. WILL TURN AND PROVIDE ALL COMFORT MEASURES
[2019-01-02 21:48] VITALS: BP 133/62
--- NOTE | 2019-01-03 03:43 | NUR ---
I have reviewed this patient and I concur with the Shift Assessment completed by the Licensed Practical Nurse today this shift.
[2019-01-03 05:55] VITALS: BP 120/65
[2019-01-03 08:07] VITALS: BP 138/63
--- NOTE | 2019-01-03 08:28 | MORECARE ---
CASE MANAGEMENT DISCHARGE SUMMARY PATIENT: CAROLINA MILLS UNIT: [id number] ADM DATE: 12/30/18 AGE: 63 : [birth year] SEX: M ROOM/BED: D.[facility] AUTHOR: HUONG GARCIA PHYSICIAN: REFERRING PHYSICIAN: ANIYA BURNS MD DATE OF SERVICE: 01/03/19 Discharge Plan Patient Name: CAROLINA MILLS Facility: [facility]:[place] : 1955 Planned Disposition: Hospice Medical Facility Anticipated Discharge Date: Discharge Date: Expected LOS: Initial Reviewer: [id number] Initial Review Date: 01/03/2019 Generated: 01/03/19 9:28 am Comments DCP- Discharge Planning Updated by [id number]: Brendon Hahn on 01/03/19 7:[address] Patient Name: CAROLINA MILLS Admission Status: Elective Accout number: [id number] Admission Date: 12-30-2018 : 1955 Admission Diagnosis: Attending: ANIYA BURNS Current LOS: 4 Anticipated DC Date: Planned Disposition: Hospice Medical Facility Primary Insurance: [facility] PLANNED EXTERNAL PROVIDER: [facility] Discharge Planning Comments: CHART REVIEWED, PT ADMITTED TO [facility]IENT [facility]OS[facility]ICE WITH [facility] ON 12-30-18. ALL CASE MANAGEMENT SERVICES PROVIDED BY [facility]. [employer] Windows Engineer: Brendon Hahn Patient Name: CAROLINA MILLS Page 11597 at 0828 All edits/amendments must be made on the electronic document DICTATION DATE: 01/03/19826 [employer]OWER PLANT OPER[employer]ORS SUPERVISOR: FRANCES 01/03/19826 RPT#: [id number] DC DATE: STATUS: ADM IN [facility] [address] [place] [address] END OF REPORT
--- NOTE | 2019-01-03 19:40 | NUR ---
DILAUDID CONTINUOS TO RT ij SANZ TO GRAVITY SKIN WARM AND DRY LUNGS WITH CRACKLES. PT IS TOTAL CARE AND STAFF WILL ASSIST WITH ALL CARE AND COMFORTQ DILAUDID TO CONTINOUS AXLE BEARING POLISHER AND SANZ TO GRAVITY STAFF TO ASSIST WITH ALL CARE SKIN WARM AND DRY. VISITOR IS NOW LEAVING BED IS LOW
--- NOTE | 2019-01-03 19:40 | NUR ---
SAT IN 80s UP O2 TO 3L
[2019-01-03 20:45] VITALS: BP 143/64
--- NOTE | 2019-01-04 04:06 | NUR ---
I have reviewed this patient and I concur with the Shift Assessment completed by the Licensed Practical Nurse today this shift.
--- NOTE | 2019-01-04 06:40 | NUR ---
BUMPED 02 TO 4L/NC SAT 86%
--- NOTE | 2019-01-04 07:45 | NUR ---
AM ROUNDS COMPLETED INTRODUCED MYSELF TO PT PRIMARY RN FOR TODAYS SHIFT. PT IS VERY SEDATED/SOMNOLENT ACCEPTABLE PER HOSPICE. SHIFT ASSESSMENT COMPLETED. PT FEELS VERY WARM TO THE TOUCH. NO FAMILY PRESENT. NO IMMEDIATE NEEDS NOTED AT THIS TIME. CL IN REACH, BED IN LOWEST, WILL CPOC.
[2019-01-04 08:24] VITALS: BP 129/65
--- NOTE | 2019-01-04 09:46 | NUR ---
HOSPICE NURSE AT BEDSIDE EVALUATING PT. PT IS FEBRILE @101.3 NEW ORDER OBTAINED FOR TYLENOL SUPPOSITORY. WILL PROVIDE AFTER PHARMACY VERIFIES. PT SOMNOLENT AND ACCEPTABLE. APPEARS COMFORTABLE NO S/S OF DISTRESS OR AGITATION NOTED. REPOSITIONED PT ON HIS R.SIDE TO RELIEVE PRESSURE. NOTED 2 OPEN MEENU OR BED SORES ON COCCYX OBTAINED ORDER FOR CALMOSEPTINE OINTMENT TO HELP WITH IT AND WILL CONTINUE TO KEEP HIM TURNED OFTEN. DILAUDID LOG CARRIER OPERATOR INFUSING ORDERED. EXWIFE AT BEDSIDE VERY EMOTIONAL, UPDATE HER ON PTS NIGHT AND WILL CONTINUE TO PROVIDE COMFORT CARE. NO CURRENT NEEDS.
--- NOTE | 2019-01-04 10:10 | NUR ---
HOTEL CONTROLLER FLOWSHEET COMPLETED. HASNT BEEN RECORDED IN 2 DAYS AND PUMP WAS NOT CLEARED. UNSURE OF ANY PREVIOUS AMOUNTS AND VOLUMES. CLEARED PUMP AND WILL START APPROPRIATE CHARTING NOW!
--- NOTE | 2019-01-04 13:32 | NUR ---
PT FEBRILE AT 101.3 PROVIDED PT WITH PRN TYLENOL SUPPOSITORY TO HELP RELIEVE FEVER. TURNED PT ONTO HIS L.SIDE TO RELIEVE PRESSURE AND REPOSITION. PT STILL VERY SEDATED/SOMNOLENT ACCEPTABLE PER [facility]. RR NONLABORED BUT SOME CRACKLES/GARGLING NOTED PROVIDED PT WITH PRN ATROPINE WELL. CVL DRSG CHANGE PERFORMED USING STERILE TECHNIQUE PER HOSPITAL POLICY OF EVERY WEDNESDAY. BIOPATCH IN PLACE AND DRSG ADHERED TO SKIN, SWAB CAPS IN USE. PT APPEARS COMFORTABLE NO CURRENT NEEDS. WILL CTM.
--- NOTE | 2019-01-04 14:56 | NUR ---
PTS RR 29BPM, PT DOESNT APPEAR TO BE LABORED HOWEVER DOESNT APPEAR PEACEFUL EITHER. O2 SAT DOWN TO 80% INCREASED NC UP TO 7L FOR COMFORT. WILL CONTINUE TO MONITER AND MAY BENEFIT FROM A MASK, WILL SEE HOW HE DOES. NO CURRENT NEEDS.
--- NOTE | 2019-01-04 18:11 | NUR ---
PTS MUSIC PROMOTER EMPTY. NEW SYRINGE PROVIDED. PT RESTING QUIETLY AND APPEARS COMFORTABLE. NO S/S OF DISTRESS OR ANY CURRENT NEEDS. EX /FAMILY AT BEDSIDE. CL IN REACH. WILL CTM.
--- NOTE | 2019-01-04 19:05 | NUR ---
PATIENT LAYING IN BED. EYES CLOSED, CHEST RISING AND FALLING. NO DISTRESS NOTED.
[2019-01-04 20:00] VITALS: BP 127/51
--- NOTE | 2019-01-05 02:22 | NUR ---
PATIENT LAYING IN BED. EYES CLOSED, CHEST RISING AND FALLING. NO DISTRESS NOTED.
--- NOTE | 2019-01-05 03:15 | NUR ---
PATIENT LAYING IN BED, EYES CLOSED, CHEST RISING AND FALLING.
--- NOTE | 2019-01-05 05:13 | NUR ---
I have reviewed this patient and I concur with the Shift Assessment completed by the Licensed Practical Nurse today this shift.
--- NOTE | 2019-01-05 06:39 | NUR ---
PATIENT LAYING IN BED. CHEST RISING AND FALLING. NO DISTRESS NOTED.
--- NOTE | 2019-01-05 07:30 | NUR ---
RECEIVED POSITIONED ON RIGHT SIDE AND IS NONRESPONSIVE. ASSESSMENT COMPLETED. SANZ PATENT AND DRAINING DARK THU URINE TO BEDSIDE DRAINAGE. IV PATENT AND INFUSING WELL VIA RIGHT JUGULAR. CROCHETER HAND CONTINUOUS WITH DILAUDID. WILL CONTINUE POC
[2019-01-05 08:00] VITALS: BP 101/48
--- NOTE | 2019-01-05 12:41 | NUR ---
I CONCUR WITH THE ASSESSMENT ON THIS PATIENT PERFROMED BY JANET RANDLE.
--- NOTE | 2019-01-05 19:12 | NUR ---
PATIENT LAYING IN BED. EYES CLOSED, CHEST RISING AND FALLING. NO DISTRESS NOTED.
--- NOTE | 2019-01-05 23:55 | NUR ---
PATIENT LAYING IN BED, EYES CLOSED, CHEST RISING AND FALLING. NO DISTRESS NOTED.
--- NOTE | 2019-01-06 05:01 | NUR ---
PATIENT LAYING IN BED AT THIS TIME. EYES OPEN, CHEST RISING AND FALLING. UNRESPONSIVE. NO DISTRESS NOTED.
[2019-01-06 08:22] VITALS: BP 119/43
--- NOTE | 2019-01-06 10:30 | NUR ---
Nutrition Follow Up Reviewed chart and spoke with nursing Pt continues on Hospice Pt is not eating or drinking Will be available as consulted and per protocol
--- NOTE | 2019-01-06 19:10 | NUR ---
PATIENT LAYING IN BED. EYES OPEN, UNRESPONSIVE, CHEST RISING AND FALLING. NO DISTRESS NOTED.
[2019-01-06 20:00] VITALS: BP 123/57
--- NOTE | 2019-01-06 23:55 | NUR ---
PATIENT LAYING IN BED, EYES OPEN, CHEST RISING AND FALLING. UNRESPONSIVE. GROANED WHEN TURNED. NO DISTRESS NOTED.
--- NOTE | 2019-01-07 02:13 | NUR ---
PATIENT LAYING IN BED, EYES CLOSED, CHEST RISING AND FALLING. FAMILY AT BEDSIDE. NO DISTRESS NOTED.
--- NOTE | 2019-01-07 06:37 | NUR ---
CLINICAL ORTHOPTIST SYRINGE CHANGED. PATIENT LAYING IN BED, EYES OPEN, UNRESPONSIVE. NO DISTRESS NOTED. FAMILY AT BEDSIDE.
--- NOTE | 2019-01-07 07:38 | NUR ---
PT ASLEEP/UNRESPONSIVE. FAMILY AT BEDSIDE STATES NO CONCERNS/NEEDS OF RIGHT NOW. CL IN REACH, SRX2.
[2019-01-07 07:51] VITALS: BP 117/40
--- NOTE | 2019-01-07 12:13 | NUR ---
AID OFFERED BATH FOR PT, PT FAMILY REFUSED AT THIS TIME.
--- NOTE | 2019-01-07 12:51 | NUR ---
I have reviewed this patient and I concur with the Shift Assessment completed by the Licensed Practical Nurse today this shift.
--- NOTE | 2019-01-07 14:37 | NUR ---
FAMILY VISITED AND REQUESTED THAT THE VOCATIONAL HORTICULTURE INSTRUCTOR BE BUYMPED UP DO TO PATIENTS MOANS OCCASIONALLY THROUGHOUT THE DAY. CALLED [facility]O, HE TOLD ME TO BUMP IT TO 0.6 (PT WAS ON .4). WILL ACCOMIDATE.
--- NOTE | 2019-01-07 18:43 | NUR ---
PT OBTUNDED. FAMILY AT BEDSIDE. NO COMPALINTS/CONCERNS VOICED AT THIS TIME. CL IN REACH, SRX2.
[2019-01-07 20:13] VITALS: BP 122/21
--- NOTE | 2019-01-07 22:28 | NUR ---
INITIAL ROUNDS COMPLETED AT 1920 HRS. PT RESTING WITH EYES CLOSED. RESP LABORED. ASSESSMENT COMPLETED AT 2010 HRS. VSS. O2 9L HIGHFLOW. PT OBTUNDED. OPENS EYES TO PHYSICAL STIMULI ONLY. IV TO RTLIJ WITH NS AT 30CC/HR AND DILAUDID STOCK WORKER 0.2MG/CC AT 0.6MG/HR TO PROXIMAL PORT. LUNGS WITH COARSE RHONCHI THROUGHOUT LUNG PETERSON. SANZ DRAINING SMALL AMOUNTS OF CONCENTRATED URINE. 3X3CM SORE NOTED TO UPPER MID BACK. DRESSING TO L SCAPULA CLEAN, DRY AND INTACT. 3CM IN DIAMETER STAGE 2 ABOVE COCCYX. 4CM X6CM UNSTAGEABLE DARK AEA NOTED TO COCCYX. 2CM IN DIAMETER STAGE 2 NOTED TO R BUTTOCKS. L HEEL WITH 8CM UNSTAGEABLE DARK AREA. BILAT HEELS BRIDGED. PT REPOSITONED ONTO L SIDE. PT REPOSITIONED ONTO R SIDE AT THIS TIME. DOOR OPEN ANDSR UP X2, CALL LIGHT WITHIN REACH WITH MUSIC ON. AND SR UP X2.
--- NOTE | 2019-01-07 23:41 | NUR ---
NO CHANGES TO STATUS NOTED. RESP LABORED.
--- NOTE | 2019-01-08 02:02 | NUR ---
RESP SHALLOW AND LABORED. WILL CONTINUE TO MONITOR.
--- NOTE | 2019-01-08 04:34 | NUR ---
PT REPOSITIONED IN BED. ORAL CARE DONE. PT GRIMACED DURING ORAL CARE. RESP CONTINUE TO BE SHALLOW AND LABORED. WILL CONTINUE TO MONITOR.SR UP X2 AND HEELS BRIDGED.
--- NOTE | 2019-01-08 06:24 | NUR ---
PT TURNED SEVERAL TIMES DURING SHIFT. NO CHANGE IN STATUS NOTED.
--- NOTE | 2019-01-08 07:36 | NUR ---
PT OBTUNDED. NO FAMILY AT BEDSIDE. CL IN REACH. SRX2.
--- NOTE | 2019-01-08 07:43 | NUR ---
PTS BREATHING IS NOW ONLY THROUGH MOUTH. V/S ARE DROPPING SIGNIFICANTLY FROM PREVIOUS ONES. BREATHING IS SHALLOW AND FAST
[2019-01-08 08:11] VITALS: BP 88/21
--- NOTE | 2019-01-08 18:39 | NUR ---
I have reviewed this patient and I concur with the Shift Assessment completed by the Licensed Practical Nurse today this shift.
[2019-01-08 19:55] VITALS: BP 67/25
--- NOTE | 2019-01-08 20:42 | NUR ---
INITIAL ROUNDS COMPLETED AT 1905 HRS. PT RESTING WITH EYES CLOSED. RSP LABORED,SHALLOW AND UNEVEN. ASSESSMENT COMPLETED AT 1935HRS. PT GRIMACES TO PAINFUL STIMULI ONLY. BP 67/25. RESP LABORED, SHALLOW WITH PERIODS OF APNEA NOTED. LUNGS VERY DIMINISHED IN BSES BILAT. IV TO RTLIJ WITH NS AT 30CC/HR AND DILAUDID SOFTWARE QUALITY ANALYST WITH DILAUDID 0.6MG/HR CONTINUOUS. IV PATETN. HYPOACTIVE BS NOTED. SANZ DRAINING SCANT DARK URINE. L HEEL WITH APPROX 8CM UNSTAGEALBE AREA. BILAT FEET MOTTLED. DRESSING TO L SCAPULA NOTED. 3CM X 3CM SORE NOTED TO MID BACK. 3CM X 3CM SORE NOTED ABOVE COCCYS. 4CM X 6CM DARK AREA NOTED TO COCCYX. 2CM X 2CM SORE NOTED TO L BUTTOCKS. LOW GRADE TEMP OFF 100.2. WILL CONTINUE TO MONITOR. TURNED TO L SIDE.
--- NOTE | 2019-01-08 22:52 | NUR ---
REPOSITIONED IN BED. NO CHANGE TO STATUS NOTED. WILL CONTINUE TO MONITOR.
--- NOTE | 2019-01-09 00:31 | NUR ---
AGONAL BREATHING AT 2400 HRS. RESP 1-3 PER MINUTE. KIM CALLED AT 0015HRS. NO RESP OR HR AT 0020 HRS. [facility] CALLED AT 0025 HRS.
--- NOTE | 2019-01-09 00:51 | NUR ---
KIM MILLS HERE AT 0035 HRS. MS MILLS NOTIFYING OTHER FAMILY MEMBERS.
--- NOTE | 2019-01-09 01:05 | NUR ---
[facility] HERE.
--- NOTE | 2019-01-09 02:20 | NUR ---
[facility] HOME IN [facility] NOTIFIED AT 0130 HRS. PATTI NOTIFIED AT 0155 HRS. PT DOES NOT MEET CRITERIA. LTLIJ, YVON REMOVED. BROTHER ENROUTE TO SIGN PAPERS.
--- NOTE | 2019-01-09 04:38 | NUR ---
WAITING FOR HOME.
--- NOTE | 2019-01-09 04:51 | NUR ---
BODY RELEASED TO HOME.
--- NOTE | 2019-01-09 08:22 | MORECARE ---
CASE MANAGEMENT DISCHARGE SUMMARY PATIENT: CAROLINA MILLS UNIT: [id number] ADM DATE: 12/30/18 AGE: 63 : 51 SEX: M ROOM/BED: D[facility] AUTHOR: HUONG GARCIA PHYSICIAN: REFERRING PHYSICIAN: ANIYA BURNS MD DATE OF SERVICE: 01/09/19 Discharge Plan Patient Name: CAROLINA MILLS [facility] [facility] 1955 Planned Disposition: Anticipated Discharge Date: 01/09/19 Discharge Date: 01/09/2019 Expected LOS: 10 Initial Reviewer: [email or web address] Initial Review Date: 01/03/2019 Generated: 01/09/19 9:22 am Comments DCP- Discharge Planning Updated by [email or web address]: Brendon Hahn on 01/03/19 7:[address] Patient Name: CAROLINA MILLS Admission Status: Elective Accout number: [id number] Admission Date: 12-30-2018 : 1955 Admission Diagnosis: Attending: ANIYA BURNS Current LOS: 4 Anticipated DC Date: Planned Disposition: [facility] Primary Insurance: [facility] PLANNED EXTERNAL PROVIDER: [facility] Discharge Planning Comments: CHART REVIEWED, PT ADMITTED TO [facility] WITH [facility] ON 12-30-18. ALL CASE MANAGEMENT SERVICES PROVIDED BY [facility]. Boiler Attendant: Brendon Hahn Last DP export: 01/03/19 7:28 a Patient Name: CAROLINA MILLS Page [phone] at 0822 All edits/amendments must be made on the electronic document DICTATION DATE: 01/09/19821 DESULFURIZER OPERATOR: DM 01/09/19821 RPT#: [id number] DC DATE:01/09/19 STATUS: DIS IN [id number] [place] [address] END OF REPORT
== END 2019-01-09 04:52 | DRG 951 ==
LOC: D.M2 13:31
PROVIDERS: ADMIT Legal Medicine; ATTEND Legal Medicine
DX: Z51.5 Encounter for palliative care (principal)